=== PATIENT | female | born 1960 | race Caucasian/White ===

== ENCOUNTER 2020-03-03 06:32 | Outpatient (REF) | payer MEDICARE, MEDICAID, SELFPAY ==
[2020-03-03 07:50] LABS: Alanine Aminotransferase 24 U/L (0-31); Albumin Level 4.1 g/dL (3.5-5.0); Alkaline Phosphatase 93 U/L (39-117); Anion Gap 11 (12-20); Aspartate Amino Transferase 14 U/L (5-31); Bilirubin Total 0.4 mg/dL (0.0-1.0); Blood Urea Nitrogen 8 mg/dL (9-16); Calcium 8.8 mg/dL (8.4-10.2); Carbon Dioxide 30 mmol/L (22-29); Chloride 106 mmol/L (96-108); Cholesterol 184 mg/dL; Estimated Glomerular Filt Rate > 60; Glucose Fasting 75 mg/dL (60-99); HDL Cholesterol 66 mg/dL; LDL Cholesterol Calculated 89 mg/dl; Potassium 3.8 mmol/l (3.3-5.1); Sodium 143 mmol/L (135-145); Total Protein 6.3 g/dL (6.5-8.0); Triglycerides 148 mg/dL
[2020-03-03 08:12] LABS: TSH reflex Free T4 1.15 mIU/mL (0.32-4.0); Vitamin D 25-OH Total 53.4 ng/mL (>30)
[2020-03-03 08:23] LABS: Folate 6.3 ng/mL (> or = 4.0); Vitamin B12 643 pg/mL (200-900)
== END 2020-03-03 06:33 | disposition home or self-care (01) ==
LOC: HO.LAB 06:32
PROVIDERS: Visit Provider Internal Medicine
DX: E78.2 Mixed hyperlipidemia (principal); G62.9 Polyneuropathy, unspecified; J44.9 Chronic obstructive pulmonary disease, unspecified; K21.9 Gastro-esophageal reflux disease without esophagitis; E55.9 Vitamin D deficiency, unspecified; E66.3 Overweight
CPT/HCPCS: 80053; 80061; 82306; 82607; 82746; 84443

== ENCOUNTER 2020-05-23 11:28 | Outpatient (REF) | payer MEDICARE, MEDICAID, SELFPAY ==
--- NOTE | 2020-05-23 11:33 | MM_ITS ---
EXAMINATION: MM SCREENING DIGITAL BREAST TOMOSYNTHESIS, BILATERAL CLINICAL INFORMATION: Screening. Asymptomatic. The lifetime risk of breast cancer based on the Tyrer-Cuzick Model is 6%. COMPARISON: Mammography: 05/19/2019, 05/16/2018, 04/30/2017 TECHNIQUE: Digital breast tomosynthesis is performed in both the craniocaudal and mediolateral oblique views along with computer-aided detection (CAD). Synthesized 2D images are generated from the tomosynthesis. FINDINGS: There are scattered areas of fibroglandular density (ACR BI-RADS breast composition Category b). There are no significant masses, abnormal calcifications, or other abnormalities. Parenchymal pattern is similar to prior exams. MM/MM tomosynthesis screening BI IMPRESSION: No mammographic evidence of malignancy. ASSESSMENT: BI-RADS 1: Negative RECOMMENDATION: Routine annual mammography screening. This patient's information was entered into a reminder system with a target due date for their next mammogram.
== END 2020-05-23 11:29 | disposition home or self-care (01) ==
LOC: HO.MAMMO 11:28
PROVIDERS: Visit Provider Internal Medicine
DX: Z12.31 Encounter for screening mammogram for malignant neoplasm of breast (principal)
CPT/HCPCS: 77063; 77067

== ENCOUNTER → 2020-09-29 09:56 | Outpatient (BNVA) | payer MEDICARE, MEDICAID, SELFPAY | PROVIDERS: PCP Internal Medicine; Referring Provider Internal Medicine; Visit Provider Advanced Practice Midwife ==

== ENCOUNTER 2021-05-24 11:22 | Outpatient (REF) | payer MEDICARE, MEDICAID, SELFPAY ==
--- NOTE | ~2021-05-24 | MM_ITS ---
EXAMINATION: MM SCREENING DIGITAL BREAST TOMOSYNTHESIS, BILATERAL CLINICAL INFORMATION: Screening. Asymptomatic. The lifetime risk of breast cancer based on the Tyrer-Cuzick Model is 6%. COMPARISON: Mammography: 05/23/2020, 05/19/2019, 05/16/2018 TECHNIQUE: Digital breast tomosynthesis is performed in both the craniocaudal and mediolateral oblique views along with computer-aided detection (CAD). Synthesized 2D images are generated from the tomosynthesis. FINDINGS: There are scattered areas of fibroglandular density (ACR BI-RADS breast composition Category b). There are no significant masses, abnormal calcifications, or other abnormalities. Parenchymal pattern is similar to prior studies. There is no developing density or architectural abnormality. The axilla and skin contours are unremarkable. No significant changes. MM/MM tomosynthesis screening BI IMPRESSION: No mammographic evidence of malignancy. ASSESSMENT: BI-RADS 1: Negative RECOMMENDATION: Routine annual mammography screening. This patient's information was entered into a reminder system with a target due date for their next mammogram.
== END 2021-05-24 11:23 | disposition home or self-care (01) ==
LOC: HO.MAMMO 11:22
PROVIDERS: Visit Provider Internal Medicine
DX: Z12.31 Encounter for screening mammogram for malignant neoplasm of breast (principal)
CPT/HCPCS: 77063; 77067

== ENCOUNTER 2021-08-25 07:58 | Outpatient (REF) | payer MEDICARE, MEDICAID, SELFPAY ==
--- NOTE | 2021-08-25 08:05 | ECG_ITS ---
Test Reason : CHEST PAIN Blood Pressure : / mmHG Vent. Rate : 074 BPM Atrial Rate : 074 BPM P-R Int : 162 ms QRS Dur : 098 ms QT Int : 388 ms P-R-T Axes : 031 081 045 degrees QTc Int : 430 ms Sinus rhythm with Premature atrial complexes Incomplete right bundle branch block Borderline ECG When compared with ECG of 03-MAR-2019 15:26, Premature atrial complexes are now Present Vent. rate has decreased BY 42 BPM Referred By: Cora Shelley Electronically Signed By:SHYLA RAY
[2021-08-25 08:26] LABS: MANUAL DIFF FLAG NO
[2021-08-25 09:16] LABS: Basophils Absolute Auto 0.1 X10*3/uL (0.0-0.2); Eosinophils Absolute Auto 0.3 X10*3/uL (0.0-0.4); Eosinophils Percent Auto 3.8 % (0-4); Hematocrit 37.8 % (37.0-47.0); Hemoglobin 13.1 g/dl (12.0-16.0); Imm Gran Abs Auto 0.02 X10*3/uL (0.00-0.03); Imm Gran Pct Auto 0.3 % (0.0-0.4); Lymphocytes Absolute Auto 2.2 X10*3/uL (1.2-4.9); Lymphocytes Percent Auto 27.6 % (20-40); Mean Corpuscular HGB Conc 34.7 g/dl (31.0-35.0); Mean Corpuscular Volume 86.7 fL (80.0-98.0); Mean Platelet Volume 11.1 fL (9.4-12.3); Monocytes Absolute Auto 0.6 X10*3/uL (0.1-1.2); Monocytes Percent Auto 7.8 % (2-11); Neutrophils Absolute Auto 4.7 x10*3/uL (2.0-8.3); Neutrophils Percent Auto 59.5 % (45-73); Platelet Count 218 X10*3/uL (160-400); Red Blood Count 4.36 X10*6/uL (4.20-5.50); Red Cell Distribution Width 12.6 % (11.0-16.0); White Blood Count 7.9 X10*3/uL (4.8-10.8)
[2021-08-25 09:49] LABS: Alanine Aminotransferase 15 U/L (0-31); Alkaline Phosphatase 89 U/L (39-117); Anion Gap 9 (12-20); Aspartate Amino Transferase 15 U/L (5-31); Bilirubin Total 0.4 mg/dL (0.0-1.0); Blood Urea Nitrogen 21 mg/dL (9-16); Calcium 9.2 mg/dL (8.4-10.2); Carbon Dioxide 29 mmol/L (22-29); Chloride 105 mmol/L (96-108); Cholesterol 246 mg/dL; Estimated Glomerular Filt Rate > 60; Glucose Fasting 95 mg/dL (60-99); HDL Cholesterol 54 mg/dL; LDL Cholesterol Calculated 163 mg/dl; Potassium 4.4 mmol/L (3.3-5.1); Sodium 139 mmol/L (135-145); Total Protein 6.6 g/dL (6.5-8.0); Triglycerides 148 mg/dL
[2021-08-25 10:11] LABS: TSH reflex Free T4 1.37 uIU/mL (0.32-4.0); Vitamin D 25-OH Total 40.2 ng/mL (>30)
[2021-08-25 10:20] LABS: Folate 5.4 ng/mL (> or = 4.0); Vitamin B12 216 pg/mL (200-900)
== END 2021-08-25 07:59 | disposition home or self-care (01) ==
LOC: HO.LAB 07:58
PROVIDERS: PCP Internal Medicine; Visit Provider Nurse Practitioner Family
DX: R07.89 Other chest pain (principal); I10 Essential (primary) hypertension; E78.2 Mixed hyperlipidemia
CPT/HCPCS: 36415; 80053; 80061; 82306; 82607; 82746; 84443; 85025; 93005

== ENCOUNTER → 2021-09-05 07:27 | Outpatient (REF) | payer MEDICARE, MEDICAID, SELFPAY ==
--- NOTE | 2021-09-05 07:29 | HM_ITS ---
Conclusion: 1. Patient was monitored for total period of 6 days and 9 hours 2. Baseline rhythm is normal sinus rhythm with frequent sinus tachycardia greater than 33% of the time. 3. No sinus pauses or bradycardia noted 4. Total of Forty-six thousand six hundred forty-four PACs accounting for 5.44% of total beats accounting for frequent PACs 5. One hundred fifteen beat run of wide complex tachycardia consistent with nonsustained VT at about 150-160 beats per minute 6. 8 short supraventricular episodes longest lasting 4 beats 7. No patient reported events MTDD
== END ==
LOC: HO.CARD 07:27
PROVIDERS: Visit Provider Nurse Practitioner Family
DX: R07.89 Other chest pain (principal); I45.10 Unspecified right bundle-branch block
CPT/HCPCS: 93242

== ENCOUNTER 2021-09-18 09:51 | Emergency (ER) | payer MEDICARE, MEDICAID, SELFPAY ==
[2021-09-18 09:57] VITALS: BP 126/86; BP 97/77; PULSE 113; PULSE 115; RESP 22; TEMP 36.8; O2SAT 100; O2SAT 97; BMI 25.3
--- NOTE | 2021-09-18 10:00 | ECG_ITS ---
Test Reason : SVT Blood Pressure : / mmHG Vent. Rate : 109 BPM Atrial Rate : 109 BPM P-R Int : 168 ms QRS Dur : 100 ms QT Int : 340 ms P-R-T Axes : 048 097 032 degrees QTc Int : 457 ms Sinus tachycardia Possible Left atrial enlargement Rightward axis Low voltage QRS Incomplete right bundle branch block Borderline ECG When compared with ECG of 25-AUG-2021 08:07, Premature atrial complexes are no longer Present Referred By: Feliz Merino Electronically Signed By:Willy Melo
[2021-09-18] MEDS: 0.9 % Sodium Chloride 1,000 ML 999 ML IV ×2 (10:22)
[2021-09-18 10:24] LABS: MANUAL DIFF FLAG NO
[2021-09-18 10:28] LABS: Basophils Absolute Auto 0.1 X10*3/uL (0.0-0.2); Basophils Percent Auto 0.7 % (0-2); Eosinophils Absolute Auto 0.2 X10*3/uL (0.0-0.4); Eosinophils Percent Auto 2.7 % (0-4); Hematocrit 37.9 % (37.0-47.0); Imm Gran Abs Auto 0.02 X10*3/uL (0.00-0.03); Imm Gran Pct Auto 0.3 % (0.0-0.4); Lymphocytes Absolute Auto 1.7 X10*3/uL (1.2-4.9); Lymphocytes Percent Auto 22.3 % (20-40); Mean Corpuscular HGB Conc 34.3 g/dl (31.0-35.0); Mean Corpuscular Hemoglobin 30.2 pg (27.0-33.0); Mean Corpuscular Volume 87.9 fL (80.0-98.0); Mean Platelet Volume 10.8 fL (9.4-12.3); Monocytes Absolute Auto 0.4 X10*3/uL (0.1-1.2); Monocytes Percent Auto 5.9 % (2-11); Neutrophils Absolute Auto 5.1 x10*3/uL (2.0-8.3); Neutrophils Percent Auto 68.1 % (45-73); Platelet Count 219 X10*3/uL (160-400); Red Blood Count 4.31 X10*6/uL (4.20-5.50); Red Cell Distribution Width 12.4 % (11.0-16.0); White Blood Count 7.5 X10*3/uL (4.8-10.8)
[2021-09-18 10:36] LABS: Prothrombin Time 10.9 SEC (9.9-13.0)
[2021-09-18 10:39] LABS: Partial Thromboplastin Time 34.5 SEC (24.1-38.0)
[2021-09-18 10:47] VITALS: BP 107/73; PULSE 101; RESP 20; O2SAT 98
[2021-09-18 10:48] LABS: Troponin-I High Sensitivity < 3.5 ng/L (<3.5-17.0)
--- NOTE | 2021-09-18 10:49 | ED_ITS ---
HPI - General Adult General Chief complaint: Arrhythmia/Palpitations Stated complaint: HR 180,ADENOSINE GIVEN 115 NOW Time Seen by Provider: 09/18/21 11:03 Source: patient Mode of arrival: ambulatory Limitations: no limitations History of Present Illness HPI narrative: 61-year-old female with past medical history of SVT, COPD, and GERD presents to the ED for heart palpitations. Patient states while she was at home heart started beating fast and she called the ambulance and EMS states she was found to be in SVT. Number states patient was given adenosine and her SVT broke. Patient states her primary care provider is aware of history of SVT and was seen at cardiology lab and is waiting for results from evaluation. Patient has referral to see a bible reader. Patient presently is asymptomatic. Patient denies any chest pain, shortness of breath, abdominal pain, palpitations, coughing up blood, weakness, dizziness, fever, chills, leg swelling, or calf pain. Related Data Home Medications Medication Instructions Recorded Confirmed albuterol sulfate 90 mcg/actuation 2 puff PO QID PRN 03/09/20 09/01/21 aerosol inhaler ascorbic acid (vitamin C) 500 mg 500 mg PO DAILY 03/09/20 09/01/21 tablet fluticasone propionate 110 1 puff PO BID 03/09/20 09/01/21 mcg/actuation HFA aerosol inhaler dextroamphetamine-amphetamine 20 2 tab PO DAILY tab 08/18/21 09/01/21 mg tablet Previous Rx's Medication Instructions Recorded epinephrine 0.3 mg/0.3 mL 0.3 mg (0.3 mL) IM Q30M PRN #2 ea 03/09/20 injection, auto-injector (EpiPen 2-Nico) ipratropium 0.5 mg-albuterol 3 mg 3 ml INHALATION Q6-8H PRN 30 Days 03/09/20 (2.5 mg base)/3 mL nebulization #180 ml soln nebulizers #1 ea 03/09/20 albuterol sulfate 2.5 mg (3 mL) INHALATION QID PRN 03/17/20 30 Days #360 ml cyanocobalamin (vitamin B-12) 1,000 mcg PO DAILY #90 tab 04/30/20 1,000 mcg tablet (Vitamin B-12) omeprazole 20 mg capsule,delayed 20 mg PO DAILY 90 Days #90 cap 07/27/20 release quetiapine 400 mg tablet 800 mg PO DAILY #60 tab 12/01/20 zolpidem 10 mg tablet 10 mg PO BEDTIME PRN 30 Days #30 12/01/20 tab cholecalciferol (vitamin D3) 125 125 mcg PO DAILY #90 cap 03/25/21 mcg (5,000 unit) capsule atorvastatin 10 mg tablet 10 mg PO DAILY #90 tab 07/21/21 acetaminophen 500 mg tablet (Pain 500 mg PO BEDTIME PRN #30 tab 08/02/21 Relief Extra Strength) loratadine 10 mg tablet 10 mg PO DAILY #90 tab 08/02/21 blood pressure monitor #1 ea 08/18/21 lisinopril 2.5 mg tablet 2.5 mg PO DAILY #30 tab 09/01/21 Allergies Allergy/AdvReac Type Severity Reaction Status Date / Time haloperidol [From HALDOL] AdvReac Severe SEIZURES Verified 09/01/21 08:46 Review of Systems Review of Systems: Resolved SVT. Heart palpitation resolved. Yes all other systems are reviewed and are negative [facility] Past Medical History Medical History Allergic rhinitis Attention deficit hyperactivity disorder (ADHD) Chronic obstructive pulmonary disease Depression Elevated blood pressure reading GERD without esophagitis Hirsutism Impacted cerumen of both ears Insomnia Mixed hyperlipidemia Neuropathy Overweight (BMI 25.0-29.9) Primary osteoarthritis of right knee Vitamin D deficiency Surgical History H/O right knee surgery H/O rotator cuff surgery History of colonoscopy History of hand surgery Total knee replacement status Family History Family History Father Medical history unknown Mother Medical history unknown Social History Social History Housing: House Alcohol intake: former Patient Tobacco Use Status: Former Tobacco user e-Cigarette/Vaping Use: Currently Using Advance Directives: Yes Advance Directives Information Provided: No Advance Directives on File: No service: No Current occupational status: disabled Gender identity: Female Cognitive needs: Yes Hearing needs: No Vision needs: No Physical Exam ED Vital Signs: Vital Signs - 24 hr 09/18/21 09:57 09/18/21 10:47 09/18/21 11:27 Temperature 98.2 F Pulse Rate 115 H 101 H 90 Respiratory Rate 22 H 20 20 Blood Pressure 97/77 107/73 125/84 Pulse Oximetry 97 98 98 BMI result Body Mass Index 25.3 Const General: cooperative, healthy appearing, comfortable, no acute distress, well developed, alert, awake and Physically active Orientation/consciousness: oriented to time and patient [facility]: Yes normal to inspection, Yes No palpable skull fracture present, Yes normocephalic, Yes atraumatic and No abrasion Eyes General: appearance normal, both eyes and all related structures Neck Neck: Yes normal visual inspection, Yes full ROM, Yes no lymphadenopathy, Yes no meningeal signs, Yes trachea midline, Yes supple, No anterior neck swelling and No tender Chest Chest palpation & inspection: normal inspection of the chest and normal palpation of entire chest wall Resp Effort & Inspection: normal respiratory effort and able to speak in complete sentences Auscultation: clear to auscultation bilaterally Cardio Jugular venous distension: no JVD Heart sounds: S1 normal heart sound present and S2 normal heart sound present GI Inspection: Yes normal to inspection and No abdominal wall ecchymosis Palpation (GI): Soft to palpation, not firm, nontender, no guarding and not rigid General: No CVA tenderness and Yes no CVA tenderness Back/Spine/Pelvis Back: no CVA tenderness, No CVA tenderness and No back tenderness Skin General skin exam: no rashes or lesions noted and elasticity normal Neuro General: oriented to time, patient oriented x3, gait normal, no meningeal signs and CN's II-XI intact bilaterally Cranial nerves: Yes CN's II-XII intact bilaterally Extrem Other: Lower extremities negative for swelling, pitting edema, or calf tenderness. General: Yes normal to inspection and Yes full ROM Psych Appearance: grossly normal, well kempt and not disheveled Course Course Course Narrative: EKG labs and fluids ordered. Heart rate presently on October 01 Reevaluation(s) Reevaluation #1: EKG negative STEMI. First troponin negative. Electrolytes including magnesium normal. Patient well-appearing in talking with medical staff and spouse. Patient would like to be discharged and does not want to wait for 2nd troponin. Patient does not want further observation. Patient states he has follow-up with a bible reader and primary care provider. Thyroid level still pending. Patient understand risk of , disability, and worsening life prospects if she has a heart attack/recurring SVTt and leaves the ER before results. Patient agreeable to sign against medical advice Time: 12:19 Medical Decision Making MDM Narrative Medical decision making narrative: SVT Lab Data Result diagrams: 09/18/21 10:20 09/18/21 10:20 Labs: Lab Results 09/18/21 09/18/21 09/18/21 Range/Units 10:20 10:20 10:20 WBC 7.5 (4.8-10.8) X10*3/uL RBC 4.31 (4.20-5.50) X10*6/uL Hgb 13.0 (12.0-16.0) g/dl Hct 37.9 (37.0-47.0) % MCV 87.9 (80.0-98.0) fL MCH 30.2 (27.0-33.0) pg MCHC 34.3 (31.0-35.0) g/dl RDW 12.4 (11.0-16.0) % Plt Count 219 (160-400) X10*3/uL MPV 10.8 (9.4-12.3) fL Immature Gran % (Auto) 0.3 (0.0-0.4) % Neut % (Auto) 68.1 (45-73) % Lymph % (Auto) 22.3 (20-40) % [place] % (Auto) 5.9 (2-11) % Eos % (Auto) 2.7 (0-4) % Baso % (Auto) 0.7 (0-2) % Lymph # (Auto) 1.7 (1.2-4.9) X10*3/uL [place] # (Auto) 0.4 (0.1-1.2) X10*3/uL Eos # (Auto) 0.2 (0.0-0.4) X10*3/uL Baso # (Auto) 0.1 (0.0-0.2) X10*3/uL Abs Immat Gran (auto) 0.02 (0.00-0.03) X10*3/uL Absolute Neuts (auto) 5.1 (2.0-8.3) x10*3/uL Absolute Nucleated RBC 0.000 (0.0-0.012) X10*3/uL Nucleated RBC % (auto) 0.0 (0.0-0.2) /100WBC PT 10.9 (9.9-13.0) SEC INR 1.0 (0.9-1.1) APTT 34.5 (24.1-38.0) SEC Sodium 139 (135-145) mmol/L Potassium 4.3 (3.3-5.1) mmol/L Chloride 108 (96-108) mmol/L Carbon Dioxide 22 (22-29) mmol/L Anion Gap 13 (12-20) BUN 14 (9-16) mg/dL Creatinine 0.86 (0.5-1.4) mg/dL Estim Creat Clear Calc 65.9 Estimated GFR > 60 Random Glucose 111 (60-115) mg/dL Calcium 9.1 (8.4-10.2) mg/dL Magnesium 2.2 (1.6-2.6) mg/dL Total Bilirubin 0.3 (0.0-1.0) mg/dL AST 25 D (5-31) U/L ALT 20 (0-31) U/L Alkaline Phosphatase 82 (39-117) U/L Troponin I High Sens (<3.5-17.0) ng/L Total Protein 6.3 L (6.5-8.0) g/dL Albumin 3.9 (3.5-5.0) g/dL TSH 0.54 (0.32-4.0) uIU/mL Thyroxine (T4) 6.8 (4.5-12.0) ug/dL 09/18/21 Range/Units 10:20 WBC (4.8-10.8) X10*3/uL RBC (4.20-5.50) X10*6/uL Hgb (12.0-16.0) g/dl Hct (37.0-47.0) % MCV (80.0-98.0) fL MCH (27.0-33.0) pg MCHC (31.0-35.0) g/dl RDW (11.0-16.0) % Plt Count (160-400) X10*3/uL MPV (9.4-12.3) fL Immature Gran % (Auto) (0.0-0.4) % Neut % (Auto) (45-73) % Lymph % (Auto) (20-40) % [place] % (Auto) (2-11) % Eos % (Auto) (0-4) % Baso % (Auto) (0-2) % Lymph # (Auto) (1.2-4.9) X10*3/uL [place] # (Auto) (0.1-1.2) X10*3/uL Eos # (Auto) (0.0-0.4) X10*3/uL Baso # (Auto) (0.0-0.2) X10*3/uL Abs Immat Gran (auto) (0.00-0.03) X10*3/uL Absolute Neuts (auto) (2.0-8.3) x10*3/uL Absolute Nucleated RBC (0.0-0.012) X10*3/uL Nucleated RBC % (auto) (0.0-0.2) /100WBC PT (9.9-13.0) SEC INR (0.9-1.1) APTT (24.1-38.0) SEC Sodium (135-145) mmol/L Potassium (3.3-5.1) mmol/L Chloride (96-108) mmol/L Carbon Dioxide (22-29) mmol/L Anion Gap (12-20) BUN (9-16) mg/dL Creatinine (0.5-1.4) mg/dL Estim Creat Clear Calc Estimated GFR Random Glucose (60-115) mg/dL Calcium (8.4-10.2) mg/dL Magnesium (1.6-2.6) mg/dL Total Bilirubin (0.0-1.0) mg/dL AST (5-31) U/L ALT (0-31) U/L Alkaline Phosphatase (39-117) U/L Troponin I High Sens < 3.5 (<3.5-17.0) ng/L Total Protein (6.5-8.0) g/dL Albumin (3.5-5.0) g/dL TSH (0.32-4.0) uIU/mL Thyroxine (T4) (4.5-12.0) ug/dL ECG Data Interpretation: sinus tachycardia. Ventricular rate 109. OH interval 168. QRS 100 per QTC 457. Negative STEMI Discharge Plan Discharge Clinical Impression: SVT (supraventricular tachycardia) Patient Disposition: Left Against Medical Advice Instructions: Supraventricular Tachycardia (ED) Additional Instructions: you are leaving against medical advice. Return to the ED immediately for any chest pain, shortness of breath, heart palpitations, dizziness, loss of consciousness, coughing up blood, leg swelling, calf pain, or any other concerning symptoms. Please follow-up with your primary care provider and bible reader. Prescriptions: No Action albuterol sulfate 2.5 mg /3 mL (0.083 %) solution for nebulization 2.5 mg inhalation QID PRN (Reason: shortness of breath or wheezing) 30 Days Qty: 360 0RF cyanocobalamin (vitamin B-12) [Vitamin B-12] 1,000 mcg tablet 1,000 mcg PO DAILY Qty: 90 0RF omeprazole 20 mg capsule,delayed release(DR/EC) 20 mg PO DAILY 90 Days Qty: 90 1RF zolpidem 10 mg tablet 10 mg PO BEDTIME PRN (Reason: insomnia) 30 Days Qty: 30 0RF quetiapine 400 mg tablet 800 mg PO DAILY Qty: 60 0RF cholecalciferol (vitamin D3) 125 mcg (5,000 unit) capsule 125 mcg PO DAILY Qty: 90 2RF atorvastatin 10 mg tablet 10 mg PO DAILY Qty: 90 0RF acetaminophen [Pain Relief Extra Strength] 500 mg tablet 500 mg PO BEDTIME PRN (Reason: for pain) Qty: 30 0RF loratadine 10 mg tablet 10 mg PO DAILY Qty: 90 0RF ascorbic acid (vitamin C) 500 mg tablet 500 mg PO DAILY 0RF Flovent HFA 110 mcg/actuation HFA aerosol inhaler 1 puff PO BID 0RF albuterol sulfate 90 mcg/actuation HFA aerosol inhaler 2 puff PO QID PRN0RF ipratropium-albuterol 0.5 mg-3 mg(2.5 mg base)/3 mL solution for nebulization 3 ml inhalation Q6-8H PRN (Reason: shortness of breath or wheezing) 30 Days Qty: 180 3RF epinephrine [EpiPen 2-Nico] 0.3 mg/0.3 mL auto-injector 0.3 mg IM Q30M PRN (Reason: anaphylaxis) Qty: 2 0RF Rx Instructions: do not exceed 12 doses per 24 hrs (DME) nebulizers Misc See Rx Instructions .ROUTE .MEDSUPPLY Qty: 1 0RF Rx Instructions: As directed dextroamphetamine-amphetamine 20 mg tablet 2 tab PO DAILY 0RF (DME) blood pressure monitor Kit See Rx Instructions .Route Qty: 1 0RF Rx Instructions: As directed lisinopril 2.5 mg tablet 2.5 mg PO DAILY Qty: 30 2RF Referrals: Maico Pierce MD [Primary Care Provider] - ( SVT) Stand Alone Forms: Against Medical Advice Interventions: ED Discharge Assessment Last Done: 09/18/21 12:32 Discharge Date/Time: 09/18/21 12:32 Print Language: Azerbaijani
[2021-09-18 10:50] LABS: Alanine Aminotransferase 20 U/L (0-31); Albumin Level 3.9 g/dL (3.5-5.0); Alkaline Phosphatase 82 U/L (39-117); Anion Gap 13 (12-20); Aspartate Amino Transferase 25 U/L (5-31); Bilirubin Total 0.3 mg/dL (0.0-1.0); Blood Urea Nitrogen 14 mg/dL (9-16); Calcium 9.1 mg/dL (8.4-10.2); Carbon Dioxide 22 mmol/L (22-29); Chloride 108 mmol/L (96-108); Creatinine Clr Calc Pharmacy 65.9; Estimated Glomerular Filt Rate > 60; Glucose Random 111 mg/dL (60-115); Magnesium 2.2 mg/dL (1.6-2.6); Potassium 4.3 mmol/L (3.3-5.1); Sodium 139 mmol/L (135-145); Total Protein 6.3 g/dL (6.5-8.0)
[2021-09-18 11:27] VITALS: BP 125/84; PULSE 90; RESP 20; O2SAT 98
[2021-09-18 12:25] LABS: T4 Thyroxine 6.8 ug/dL (4.5-12.0); Thyroid Stimulating Hormone 0.54 uIU/mL (0.32-4.0)
== END 2021-09-18 12:32 | disposition left against medical advice (07) ==
PROVIDERS: Physician Assistant; Emergency Provider Emergency Medicine; PCP Internal Medicine
DX: I47.1 Supraventricular tachycardia (principal); I10 Essential (primary) hypertension; E78.5 Hyperlipidemia, unspecified; Z79.899 Other long term (current) drug therapy; Z79.02 Long term (current) use of antithrombotics/antiplatelets
CPT/HCPCS: 36415; 80053; 83735; 84436; 84443; 84484; 85025; 85610; 85730; 93005; 96360; 99284

== ENCOUNTER → 2021-10-06 09:02 | Outpatient (BNVA) | payer MEDICARE, MEDICAID, SELFPAY | PROVIDERS: PCP Internal Medicine; Visit Provider Advanced Practice Midwife | DX: Z01.419 Encounter for gynecological examination (general) (routine) without abnormal findings (principal); L98.9 Disorder of the skin and subcutaneous tissue, unspecified; Z78.0 Asymptomatic menopausal state | CPT/HCPCS: 99212 ==

== ENCOUNTER 2021-10-13 08:11 | Outpatient (REF) | payer MEDICARE, MEDICAID, SELFPAY ==
--- NOTE | ~2021-10-13 | MM_ITS ---
EXAMINATION: BONE DENSITOMETRY CLINICAL INDICATION: Menopause. COMPARISON: None (current study represents initial baseline exam). TECHNIQUE: Using a Get[employer] DXA System (software version: 13.1) manufactured by [employer], dual-energy x-ray absorptiometry was performed of the lumbar spine and left hip. The images are of good technical quality. Summary results are attached. FINDINGS: AP SPINE L1-L2 (excluding L3 and L4): The data of L1-L4 has been changed to exclude the L3 and L4 vertebral bodies, because degenerative changes at these levels may cause overestimation of lumbar spine density. BMD 1.110 g/cm2, Z-score 0.5, T-score -0.5, normal. LEFT FEMUR, NECK: BMD 0.774 g/cm2, Z-score -0.8, T-score -1.9, osteopenia. LEFT FEMUR, TOTAL: BMD 0.754 g/cm2, Z-score -1.2, T-score -2.0, osteopenia. IDENTIFIED RISK FACTORS: Menopause, low calcium intake. HISTORY OF FRACTURE: None listed. MEDICATIONS: Vitamin D. MM/XR DEXA axial skeleton IMPRESSION: 1. DIAGNOSIS: Osteopenia based on the lowest T-score value of -2.0 in the total femur applying World Health Organization criteria. 2. 10-YEAR FRACTURE RISK PREDICTION, FRAX: Major osteoporotic fracture (clinical spine, forearm, hip or shoulder) 9.8%. Hip fracture 1.2%. 3. Treatment Recommendations: NOF guidelines recommend consideration for treatment in postmenopausal women and men age 50 and older presenting with the following: -A hip or vertebral (clinical or morphometric) fracture. -T-score less than or equal to -2.5 at the femoral neck or spine after appropriate evaluation to exclude secondary causes. -Low bone mass at the hip or spine and a 10-year fracture probability by FRAX of greater than or equal to 3% for hip fracture or greater than or equal to 20% for major osteoporotic fracture based on the [place] adapted WHO algorithm. 4. Other Recommendations: All treatment decisions require clinical judgment and consideration of individual patient factors, including patient preferences, comorbidities, previous drug use, risk factors not captured in the FRAX model (e.g. frailty, falls, vitamin D deficiency, increased bone turnover, interval significant decline in bone density) and possible under or overestimation of fracture risk by FRAX. Additional medical evaluation for secondary cause of low bone mineral density may be appropriate. FUTURE SCAN RECOMMENDATION: People with diagnosed cases of osteoporosis or at high risk for fracture should have regular bone mineral density tests. For patients eligible for Medicare, routine testing is allowed once every 2 years. The testing frequency can be increased to one year for patients who have rapidly progressing disease, those who are receiving or discontinuing medical therapy to restore bone mass, or have additional risk factors.
== END 2021-10-13 08:12 | disposition home or self-care (01) ==
LOC: HO.MAMMO 08:11
PROVIDERS: PCP Internal Medicine; Visit Provider Nurse Practitioner Family
DX: Z13.820 Encounter for screening for osteoporosis (principal); Z78.0 Asymptomatic menopausal state
CPT/HCPCS: 77080

== ENCOUNTER → 2021-10-25 08:53 | Outpatient (BNVA) | payer MEDICARE, MEDICAID, SELFPAY | PROVIDERS: PCP Internal Medicine; Referring Provider Nurse Practitioner Family; Visit Provider Internal Medicine Cardiovascular Disease | DX: I47.1 Supraventricular tachycardia (principal); I47.2 Ventricular tachycardia; Z79.899 Other long term (current) drug therapy | CPT/HCPCS: 99202 ==

== ENCOUNTER → 2021-12-07 08:26 | Outpatient (REF) | payer MEDICARE, MEDICAID, SELFPAY ==
--- NOTE | 2021-12-07 08:29 | CA_ITS ---
Transthoracic Echocardiogram Patient (Last, First, Middle): Jonathan Sterling, Gender: Female Date of : 1960 Age: 61 Procedure Date: 12/07/2021 Procedure Type: Transthoracic Echocardiogram Location: OP Height: 170.18 cm Weight: 72.58 kg BSA: 1.84 m2 Heart Rate: 79 bpm BP: 122 / 90 mmHg [employer] Supervisor: JOHN Referring MD: Khang Guevara MD Symptoms: I47.2 - Ventricular tachycardia Study Quality: Adequate w contrast ECG Rhythm: Sinus Conclusions: - The left ventricular systolic function is normal. The calculated ejection fraction is 69% by biplane method. - There is mild calcification of the aortic valve. - No obvious valvular pathology seen on this study. Findings Procedure Information Contrast agent, definity, is being given per protocol without apparent complications. Left Ventricle Normal left ventricular cavity size. There is normal left ventricular wall thickness. The left ventricular systolic function is normal. The calculated ejection fraction is 69% by biplane method. There is no evidence of regional wall motion abnormalities. E/E prime ratio is between 8 and 15 consistent with indeterminate filling pressures. Evidence suggests grade I (mild) diastolic dysfunction. Right Ventricle Normal right ventricular cavity size and systolic function. Atria Both atria are normal in size. Aortic Valve There is a normal trileaflet aortic valve. There is mild calcification of the aortic valve. There is no aortic valve stenosis. There is trace (trivial) aortic valve regurgitation. Mitral Valve The mitral valve appears normal. There is no mitral valve regurgitation. There is no mitral valve stenosis. Pulmonic Valve The pulmonic valve is likely normal. Tricuspid Valve Normal tricuspid valve structure. There is trace tricuspid valve regurgitation. The pulmonary artery systolic pressure is normal. Great Vessels The asc aorta is normal in size. Venous The inferior vena cava is normal in size and collapses greater than 50% with inspiration. Pericardium/Pleural There is a trivial pericardial effusion. Prior Study Comparison No prior study available for comparison. Recommendations, Care & Conclusions No obvious valvular pathology seen on this study. Measurements 2D Linear Measurements IVSd: 0.93 0.6-0.9/0.6-1.0 cm LVIDd: 4.44 3.9-5.3/4.2-5.9 cm LVIDd Index: 2.41 2.4-3.2/2.2-3.1 cm/m2 LVIDs: 2.43 2.0-3.6 cm LVPWd: 0.61 0.7-1.1 cm LA Diam: 3.50 2.7-3.8/3.0-4.0 cm LAIDs Index: 1.90 1.5-2.3 cm/m2 LV Mass: 131.15 67-162/88-224 g LV Mass Index: 71.28 43-95/49-115 g/m2 LVOT Diam: 2.10 3.0+(-)1.3 cm 2D Systolic Function EF 4C: 72.00 >55% EF 2C: 66.90 >55% EF BiP: 69.30 >55% Mitral Valve MV Pk E: 0.63 MV PK A: 1.10 MV Decel Time: 264.00 E/A: 0.60 E'Lateral: 4.79 E'Medial: 5.00 E/E' Med: 12.60 E/E' Lat: 13.20 PHT: 77.00 MVA PHT: 2.86 Decel Lucas: 2.39 Aortic Valve AoV Pk Jesus: 1.80 AoV Mn Jesus: 1.21 AoV VTI: 0.32 AoV Pk Grad: 13.00 Aov Mn Grad: 7.00 HUMPHREY Cont.VTI: 3.15 LVOT LVOT Pk Jesus: 1.49 LVOT Mn Jesus: 1.12 LVOT VTI: 0.29 LVOT Pk Grad: 9.00 LVOT Mn Grad: 6.00 LVOT Diam: 2.10 LVOT Area: 3.46 Diastolic Function MV Pk E: 0.63 MV Pk A: 1.10 E/A: 0.60 E'Medial: 5.00 E/E' Med: 12.60 E' Laterial: 4.79 E/E' Lat: 13.20 Right Ventricle TAPSE (mm): 19.80 TVS' Jesus: 12.90 Tricuspid Valve RA Press: 3.00 Great Vessels Aorta Sinus of Valsalva: 3.70 2.0-3.5 cm Ao Asc: 3.60 2.1-3.4 cm Pulmonary Veins Pulm Vein S/D 1.60 Pulmonary Valve PV Pk Jesus: 0.93 Peak PV Grad: 3.00 Updated in Other Vendor System with Status of Final Harish Mendenhall MD electronically signed on 12/09/2021 11:35:07 AM with status of Final
--- NOTE | 2021-12-07 08:29 | CA_ITS ---
Acquisition Time: 2021-12-07 09:25:53 Total Exercise Time: 00:05:00 Test Indications: SVT Medications: SEE H Protocol: SKYE Max HR: 150 BPM 94% of Pred: 158 BPM Max BP: 198/090 mmHG Max Work Load: 7.0 METS Exercise stress test with exercise 5 min of Skye protocol,achieving 94% MPHR. 7 METs, with moderate to severe shortness of breath, 6-7/10 anterior chest tightness, with isolated PACs and PVCs, with hypertensive response to exercise with max BP 198/90, without EKG changes meeting criteria for ischemia. In recovery she used her Albuteral inhaler. She had gradual improvement and resolution of symptoms. Will order an exercise nuclear stress test for further evaluation. Test reviewed with Dr Mendenhall Referred By: Khang Guevara Overread By: SONY ZHANG
== END ==
LOC: HO.CARD 08:26
PROVIDERS: Visit Provider Internal Medicine Cardiovascular Disease
DX: I47.2 Ventricular tachycardia (principal)
CPT/HCPCS: 93017; 93306; Q9957

== ENCOUNTER → 2021-12-22 08:23 | Outpatient (REF) | payer MEDICARE, MEDICAID, SELFPAY ==
--- NOTE | ~2021-12-22 | NM_ITS ---
EXERCISE MYOCARDIAL PERFUSION STUDY INDICATION: Abnormal stress test TECHNIQUE: The patient was brought in for an exercise perfusion study on 12/22/2021. Patient performed exercise as per Tevin protocol and was injected 25 mCi of sestamibi once target heart rate was achieved. Images were obtained using the SPECT gamma camera interlaced with the gating device. Images were obtained in supine position. Resting perfusion study was performed on 12/25/2021. Patient was administered 25 mCi of sestamibi intravenously at rest. Images were then obtained in supine position. Total DLP 146mGy-cm. Images were processed with the software and compared side to side in short axis, horizontal long axis and vertical long axis views. FINDINGS: Raw images were reviewed. The stress perfusion study showed no significant perfusion abnormality. Both uncorrected as well as CT attenuation corrected images were reviewed.. The gated study shows normal LV systolic function with calculated LVEF of 69%. LV cavity is normal in size. The gated study shows normal wall thickening and contraction of segments. Resting study shows no significant perfusion abnormality. Gating at rest reveals normal wall motion with ejection fraction at 73%. The findings are consistent with no reversible or fixed perfusion abnormality. WA/WA cardiolite stress test IMPRESSION: 1. Myocardial perfusion imaging study shows normal myocardial perfusion. 2. Gated LVEF is 69% during stress and 73% during rest. 3. Transient ischemic dilatation not present. EKG component of the test reported separately.
--- NOTE | 2021-12-22 08:26 | CA_ITS ---
Acquisition Time: 2021-12-22 08:45:17 Total Exercise Time: 00:05:01 Test Indications: Abnormal Treadmill Test Medications: SEE H Protocol: SKYE Max HR: 139 BPM 87% of Pred: 158 BPM Max BP: 178/092 mmHG Max Work Load: 7.0 METS Exercise stres test with exercise 5 min 1 sec of Skye protocol, with report of moderate sob and 4/10 anterior chest tightness, with isolated PACs, with normotensive response to exercise, without EKG changes meeting criteria for ischemia. In recovery her sob and chest tightness resolved. Nuclear images pending. Test reviewed with Dr Mendenhall Referred By: Kia Hammond Overread By: KIA HAMMOND
== END ==
LOC: HO.CARD 08:23
PROVIDERS: Visit Provider Nurse Practitioner Family
DX: I47.1 Supraventricular tachycardia (principal); I47.2 Ventricular tachycardia; R94.39 Abnormal result of other cardiovascular function study
CPT/HCPCS: 78452; 93017; A9500

== ENCOUNTER → 2021-12-27 12:43 | Outpatient (BNVA) | payer MEDICARE, MEDICAID, SELFPAY | PROVIDERS: PCP Internal Medicine; Referring Provider Internal Medicine; Visit Provider Internal Medicine Cardiovascular Disease | DX: I47.1 Supraventricular tachycardia (principal) | CPT/HCPCS: 99212 ==

== ENCOUNTER → 2022-03-07 08:49 | Outpatient (BNVA) | payer MEDICARE, MEDICAID, SELFPAY | PROVIDERS: PCP Internal Medicine; Referring Provider Internal Medicine; Visit Provider Internal Medicine Cardiovascular Disease | DX: I47.1 Supraventricular tachycardia (principal) | CPT/HCPCS: 99212 ==

== ENCOUNTER → 2022-04-03 14:14 | Outpatient (BNVA) | payer MEDICARE, MEDICAID, SELFPAY | PROVIDERS: PCP Internal Medicine; Visit Provider Nurse Practitioner Family | DX: I47.1 Supraventricular tachycardia (principal); I49.1 Atrial premature depolarization; I10 Essential (primary) hypertension; R07.89 Other chest pain; Z98.890 Other specified postprocedural states | CPT/HCPCS: 93005; 99212 ==

== ENCOUNTER → 2022-04-24 13:07 | Outpatient (REF) | payer MEDICARE, MEDICAID, SELFPAY ==
--- NOTE | 2022-04-24 13:10 | HM_ITS ---
Conclusion: 1. Patient was monitored for total period of 3 days 2. Baseline was normal sinus rhythm with average heart of 97 beats per minute 3. No significant pauses or bradycardia noted 4. Total of 13,853 PVCs accounting for 6.8% of total beats account for frequent PVCs 5. Patient reported 1 event correlated with sinus tachycardia MTDD
--- NOTE | 2022-04-24 13:10 | CA_ITS ---
Transthoracic Echocardiogram Patient (Last, First, Middle): Jonathan Sterling, Gender: Female Date of : 1960 Age: 61 Procedure Date: 04/24/2022 Procedure Type: Transthoracic Echocardiogram Location: OP Height: 170.18 cm Weight: 70.31 kg BSA: 1.81 m2 Heart Rate: bpm BP: 130 / 98 mmHg Compensator: TO Referring MD: Kia Hammond COAT JOINER LOCKSTITCH-Celia Advertising Specialist: Khnag Guevara MD Symptoms: R06.02 - Shortness of breath Study Quality: Fair/Contrast ECG Rhythm: Sinus Conclusions: - 1. Normal LV systolic function with LVEF of 60 65% 2. Small pericardial effusion Findings Procedure Information Contrast agent, definity, is being given per protocol without apparent complications. Left Ventricle Normal left ventricular size and systolic function. There is mildly increased left ventricular wall thickness. The visually estimated ejection fraction is between 60-65%. Pericardium/Pleural There is a small circumferential pericardial effusion. Prior Study Comparison No significant change compared to prior study dated: 12/07/2021. Measurements 2D Linear Measurements IVSd: 1.18 0.6-0.9/0.6-1.0 cm LVIDd: 3.49 3.9-5.3/4.2-5.9 cm LVIDd Index: 1.93 2.4-3.2/2.2-3.1 cm/m2 LVIDs: 2.07 2.0-3.6 cm LVPWd: 1.18 0.7-1.1 cm LA Diam: 3.20 2.7-3.8/3.0-4.0 cm LAIDs Index: 1.77 1.5-2.3 cm/m2 LV Mass: 164.00 67-162/88-224 g LV Mass Index: 90.61 43-95/49-115 g/m2 LVOT Diam: 2.00 3.0+(-)1.3 cm 2D Systolic Function EF 4C: 59.70 >55% EF 2C: 67.90 >55% EF BiP: 63.10 >55% LVOT LVOT Pk Jesus: 1.26 LVOT Mn Jesus: 0.95 LVOT VTI: 0.25 LVOT Pk Grad: 6.00 LVOT Mn Grad: 4.00 LVOT Diam: 2.00 LVOT Area: 3.14 Tricuspid Valve RA Press: 3.00 Updated in Other Vendor System with Status of Final Khang Guevara MD electronically signed on 04/25/2022 3:26:08 PM with status of Final
== END ==
LOC: HO.CARD 13:07
PROVIDERS: PCP Internal Medicine; Visit Provider Nurse Practitioner Family
DX: R07.89 Other chest pain (principal); I47.1 Supraventricular tachycardia; R06.02 Shortness of breath; Z98.890 Other specified postprocedural states
CPT/HCPCS: 93242; 93308; Q9957

== ENCOUNTER 2022-05-30 11:18 | Outpatient (REF) | payer MEDICARE, MEDICAID, SELFPAY ==
--- NOTE | ~2022-05-30 | MM_ITS ---
EXAMINATION: MM SCREENING DIGITAL BREAST TOMOSYNTHESIS, BILATERAL CLINICAL INFORMATION: Screening. Asymptomatic. The lifetime risk of breast cancer based on the Tyrer-Cuzick Model is 6%. COMPARISON: Mammography: 05/24/2021, 05/23/2020, 05/19/2019 TECHNIQUE: Digital breast tomosynthesis is performed in both the craniocaudal and mediolateral oblique views along with computer-aided detection (CAD). Synthesized 2D images are generated from the tomosynthesis. FINDINGS: There are scattered areas of fibroglandular density (ACR BI-RADS breast composition Category b). There are no significant masses, abnormal calcifications, or other abnormalities. No architectural abnormality or developing density or significant change from prior studies. The axilla and skin contours are unremarkable. MM/MM tomosynthesis screening BI IMPRESSION: No mammographic evidence of malignancy. ASSESSMENT: BI-RADS 1: Negative RECOMMENDATION: Routine annual mammography screening. This patient's information was entered into a reminder system with a target due date for their next mammogram.
== END 2022-05-30 11:19 | disposition home or self-care (01) ==
LOC: HO.MAMMO 11:18
PROVIDERS: PCP Internal Medicine; Visit Provider Internal Medicine
DX: Z12.31 Encounter for screening mammogram for malignant neoplasm of breast (principal)
CPT/HCPCS: 77063; 77067

== ENCOUNTER → 2022-06-01 08:30 | Outpatient (BNVA) | payer MEDICARE, MEDICAID, SELFPAY | PROVIDERS: PCP Internal Medicine; Referring Provider Internal Medicine; Visit Provider Internal Medicine Cardiovascular Disease | DX: R07.9 Chest pain, unspecified (principal); I47.1 Supraventricular tachycardia; I10 Essential (primary) hypertension; Z79.899 Other long term (current) drug therapy | CPT/HCPCS: 99212 ==

== ENCOUNTER 2022-06-15 08:46 | Outpatient (REF) | payer MEDICARE, MEDICAID, SELFPAY ==
[2022-06-15 11:14] LABS: Anion Gap 14 (12-20); Blood Urea Nitrogen 9 mg/dL (9-16); Carbon Dioxide 25 mmol/L (22-29); Chloride 107 mmol/L (96-108); Estimated Glomerular Filt Rate > 60; Glucose Random 91 mg/dL (60-115); Potassium 4.1 mmol/L (3.3-5.1); Sodium 142 mmol/L (135-145)
== END 2022-06-15 08:47 | disposition home or self-care (01) ==
LOC: HO.LAB 08:46
PROVIDERS: PCP Internal Medicine; Referring Provider Internal Medicine; Visit Provider Internal Medicine Cardiovascular Disease
DX: I47.1 Supraventricular tachycardia (principal); I49.1 Atrial premature depolarization; R06.02 Shortness of breath
CPT/HCPCS: 36415; 80048

== ENCOUNTER → 2022-07-12 14:09 | Outpatient (BNVA) | payer MEDICARE, MEDICAID, SELFPAY | PROVIDERS: PCP Internal Medicine; Referring Provider Internal Medicine; Visit Provider Internal Medicine Cardiovascular Disease | DX: R07.9 Chest pain, unspecified (principal); I47.1 Supraventricular tachycardia | CPT/HCPCS: 93005; 99212 ==

== ENCOUNTER 2022-10-08 09:01 | Outpatient (REF) | payer MEDICARE, MEDICAID, SELFPAY ==
[2022-10-09 22:08] LABS: HPV mRNA E6/E7 rflx Not Detected (Not Detected)
== END 2022-10-08 09:02 | disposition home or self-care (01) ==
LOC: HO.LNP 09:01
PROVIDERS: PCP Internal Medicine; Visit Provider Advanced Practice Midwife
DX: Z01.419 Encounter for gynecological examination (general) (routine) without abnormal findings (principal); Z11.51 Encounter for screening for human papillomavirus (HPV)
CPT/HCPCS: 87624; 88142; G0101

== ENCOUNTER 2022-12-26 14:27 | Outpatient (AMB) | payer MEDICARE, MEDICAID, SELFPAY ==
[2022-12-26 14:30] VITALS: BP 130/90; PULSE 105; O2SAT 97; BMI 27.4
--- NOTE | 2022-12-26 14:30 | A.OFFVIS_ITS ---
Intake Vital Signs 12/26/22 14:30 Height 5 ft 7 in Weight 175 lb BMI 27.4 BP 130/90 H Blood Pressure Location Lt brachial Position Sitting Pulse 105 H Pulse Source Pulse Oximeter Pulse Oximetry (%) 97 Oxygen Delivery Method Room Air Intake Visit Reasons: COPD Intake Note: pt is here as a new patient, for copd, and states her BP has been all over but also tight in chest with stairs and fast walking. Skirt Panel Assembler Required: No Allergies haloperidol [From HALDOL] Adverse Reaction (Severe, Verified 12/26/22 14:48) SEIZURES lisinopril Adverse Reaction (Uncoded 12/26/22 14:48) Cough Medication List - Last Reconciled 12/26/22 by Matilda Raymundo MD albuterol sulfate 90 mcg/actuation 2 puffs PO QID PRN albuterol sulfate 2.5 mg (3 mL) inhalation QID PRN 30 days ascorbic acid (vitamin C) 500 mg PO DAILY atorvastatin 10 mg PO DAILY blood pressure monitor As directed calcium carbonate (Oyster Shell Calcium) 500 mg PO DAILY 90 days cholecalciferol (vitamin D3) 125 mcg PO DAILY cyanocobalamin (vitamin B-12) (Vitamin B-12) 1,000 mcg PO DAILY dextroamphetamine-amphetamine 20 mg 20 mg PO DAILY diltiazem HCl ER 240 mg PO DAILY epinephrine (EpiPen 2-Nico) 0.3 mg (0.3 mL) IM Q30M PRN escitalopram oxalate 10 mg PO DAILY fluticasone propionate 110 mcg/actuation 1 puff PO BID PRN ibuprofen 600 mg PO TID PRN 30 days ipratropium-albuterol 0.5 mg-3 mg(2.5 mg base)/3 mL 3 mL inhalation Q6-8H PRN 30 days loratadine 10 mg PO DAILY losartan 100 mg PO DAILY nebulizers As directed omeprazole 20 mg PO DAILY 90 days quetiapine (Seroquel) 100 mg PO BEDTIME zolpidem (Ambien) 10 mg PO BEDTIME Do you need a note to return to daycare/school/sports/work: No HPI COPD HPI Details This 62 years old female is here for pulmonary evaluation, with chief complaint of shortness of breath on walking or doing any physical work for the last 10 years or so. Back in 2012 she was diagnosed to have COPD. She was treated with the bronchodilators why a nebulizer and also ProAir p.r.n. . The history dictates that she even used O2 2 L/minute at that time for a year or so and then gave up. Patient used to smoke 1 pack a day up until 2006 and was able to quit at that time ( 40 pk years ) Over the past few years her breathing has gradually improved. At present her main complaint is the pain and sort of discomfort in the anterior chest on walking fast or sometimes even at rest. At present she has albuterol inhaler on hand but does not need to use it She also used to have a nebulizer but hardly uses it . Recently she has had a full cardiac workup which was negative. Patient has history of anxiety and mild depression controlled with meds. She is on escitalopram 10 mg a day and also Seraquel 100 mg at night.l She has had longstanding history of poor sleep at night has used Ambien for a few years were currently in spite of using Ambien she slid does not sleep well . She has mild nasal allergy and takes loratadine 10 mg p.r.n.. GERD symptoms are controlled with the use of omeprazole PFSH Medical History Allergic rhinitis Attention deficit hyperactivity disorder (ADHD) Cervical cancer screening Chest pain Chronic obstructive pulmonary disease Depression Elevated blood pressure reading GERD without esophagitis Hirsutism Impacted cerumen of both ears Insomnia Mixed hyperlipidemia Neuropathy Overweight (BMI 25.0-29.9) Primary osteoarthritis of right knee SVT (supraventricular tachycardia) Vitamin D deficiency Surgical History H/O right knee surgery H/O rotator cuff surgery History of colonoscopy History of hand surgery S/P catheter ablation of slow pathway Total knee replacement status Family History Father Medical history unknown Mother Medical history unknown Social History Housing: House Alcohol intake: former Patient Tobacco Use Status: Former Tobacco user e-Cigarette/Vaping Use: Former Use service: No Current occupational status: disabled Gender identity: Female Cognitive needs: Yes Hearing needs: No Vision needs: No Female Reproductive History Menstrual Age of Menarche: 13 Review of Systems Const All systems reviewed & are unremarkable except as noted in HPI and below Eyes Reports no additional complaints ENT Reports no additional complaints Card Reports chest pain (NONSPECIFIC DISCOMFORT IN THE ANTERIOR CHEST, .), Denies irregular heart rhythm and Denies leg edema Resp Reports as per HPI GI Reports heartburn (CONTROLLED WITH OMEPRAZOLE) Reports no additional complaints Musc Reports no additional complaints Skin/Breast Reports system reviewed and no additional complaints, except as documented Neuro Reports no additional complaints Psych Reports anxiety and Reports depression Endo Reports no additional complaints Aller/Immun Reports no additional complaints Physical Exam Vital Signs: Last Vital Signs Pulse 105 H 12/26/22 14:30 BP 130/90 H 12/26/22 14:30 Pulse Ox 97 12/26/22 14:30 Oxygen Delivery Method Room Air 12/26/22 14:30 BMI result Body Mass Index 27.4 Const General: healthy appearing, comfortable, no acute distress, alert and awake Orientation/consciousness: patient oriented x3 HEENT Head: Yes normal to inspection General nose exam: No nasal polyps present and No nasal discharge present Face and sinus: Yes sinuses nontender Mouth: oropharynx normal Throat: Yes posterior oropharynx normal Eyes General: appearance normal, both eyes and all related structures Neck Neck: Yes normal visual inspection, Yes no lymphadenopathy, Yes trachea midline and Yes no JVD Thyroid: Thyroid normal Chest Chest palpation & inspection: normal inspection of the chest, normal palpation of entire chest wall and no tenderness Resp Other: Percussion note is resonant,, breath sounds only slightly distant. With prolonged expiratory phase No wheezes or rhonchi are heard. Cardio Palpation: normal PMI Rate: regular rate Rhythm: regular rhythm Heart sounds: no gallops and no murmurs GI Palpation (GI): Soft to palpation, Tenderness to palpation present (GI), No hepatosplenomegaly present and Palpable mass present Auscultation: normal bowel sounds Back/Spine/Pelvis Thoracic/Lumbar Spine: thoracic and lumbar spine normal to inspection Skin General skin exam: no rashes or lesions noted Neuro General: patient oriented x3 and no focal motor deficits Cranial nerves: Yes CN's II-XII intact bilaterally Extrem General: Yes normal to inspection, Yes no clubbing, cyanosis or edema and Yes no calf tenderness Psych Appearance: grossly normal and well kempt Speech and movement: Normal speech and movement present Results Reviewed Results Reviewed: Results of pulmonary function test from 2012 are reviewed. She had only mild degree of obstructive airway disorder at that time. WILL NEED TO HAVE A REPEAT PULMONARY FUNCTION TEST. Assessment & Plan Assessment & Plan (1) Chest pain: Comment: The chest pain or discomfort is very nonspecific, On examination there is no tenderness. Lungs are clear there is no pleural or pericardial rub. Patient has had full cardiac evaluation and was negative for any significant coronary artery disease. A CHEST X-RAY IS ORDERED TO RULE OUT ANY ANATOMICAL ABNORMALITY. Patient is advised to use heating pad over the tender area, . Only p.r.n. Also may take. Tylenol 2 tablets t.i.d. p.r.n. She is reassured that the pain in the chest is not related to any lung problems. Code(s): R07.9 - Chest pain, unspecified (2) Shortness of breath: Comment: Shortness of breath on exertion is probably related to chronic obstructive pulmonary disease, which should be evaluated with a COMPLETE PULMONARY FUNCTION TEST . THE PFT IS ORDERED Code(s): R06.02 - Shortness of breath (3) Chronic obstructive pulmonary disease: Comment: PATIENT HAS HAD HISTORY OF MILD OBSTRUCTIVE AIRWAY DISORDER BACK IN 2013. PFT, TO EVALUATE THE CURRENT STATUS OF HER LUNG FUNCTION, IS BEING SCHEDULED. TX USE PROAIR 2 PUFFS Q 4-6 HOURS ONLY P.R.N. Code(s): J44.9 - Chronic obstructive pulmonary disease, unspecified Qualifiers: COPD type: unspecified COPD Qualified Code(s): J44.9 - Chronic obstructive pulmonary disease, unspecified Orders: Orders XR chest 2V Today R06.02 - Shortness of breath, R07.9 - Chest pain, unspecified Medications: Changed From losartan 50 mg (2 x 25 mg) PO DAILY 60 tabs 3RF I10 - Essential (primary) hypertension To losartan 100 mg PO DAILY I10 - Essential (primary) hypertension Coding Level of Care Code New Pt Level 4 (65985) Diagnoses Chest pain R07.9 Shortness of breath R06.02 Chronic obstructive pulmonary disease J44.9 COPD type: unspecified COPD
== END 2022-12-26 15:06 | disposition home or self-care (01) ==
PROVIDERS: PCP Internal Medicine; Visit Provider Internal Medicine
DX: R07.9 Chest pain, unspecified (principal); R06.02 Shortness of breath; J44.9 Chronic obstructive pulmonary disease, unspecified
CPT/HCPCS: 99204

== ENCOUNTER 2022-12-26 14:27 | Outpatient (REF) | payer MEDICARE, MEDICAID, SELFPAY ==
--- NOTE | ~2022-12-26 | XR_ITS ---
EXAMINATION: XR CHEST 2 VIEWS CLINICAL INFORMATION: Chest pain. COMPARISON: None. TECHNIQUE: Frontal and lateral views of the chest were obtained. FINDINGS: The heart, great vessels, pulmonary vasculature and mediastinum are normal. The lungs show no focal infiltrate, effusion or pneumothorax. There is a marked lower thoracic dextroscoliosis. There is no acute osseous abnormality. XR/XR chest 2V IMPRESSION: No active cardiopulmonary disease.
== END 2022-12-26 14:28 | disposition home or self-care (01) ==
LOC: HO.XRAY 14:27
PROVIDERS: PCP Internal Medicine; Visit Provider Internal Medicine
DX: R07.9 Chest pain, unspecified (principal); R06.02 Shortness of breath; J44.9 Chronic obstructive pulmonary disease, unspecified
CPT/HCPCS: 71046; 99202

== ENCOUNTER 2023-01-07 10:59 | Outpatient (AMB) | payer MEDICARE, MEDICAID, SELFPAY ==
--- NOTE | 2023-01-07 11:09 | A.OFFVIS_ITS ---
Intake Vital Signs 01/07/23 11:11 Height 5 ft 7 in Weight 173 lb 8 oz BMI 27.2 Intake Visit Reasons: SAWV Intake Note: Patient is here for an Annual Wellness Visit. Range Ecologist Required: No Copier Repair Technician: Copier Repair Technician offered & declined Accompanied by: Self / Same As Patient Allergies haloperidol [From HALDOL] Adverse Reaction (Severe, Verified 01/07/23 11:11) SEIZURES lisinopril Adverse Reaction (Uncoded 12/26/22 14:48) Cough HPI HPI Comments History of Present Illness Details [age] year old female past medical history significant for hyperlipidemia, COPD, GERD, ADHD, depression, hypertension,NSVT, osteopenia. Patient Dr. Pierce last seen in September patient presents today for subsequent a nnual well visit. Mammogram: April 2021 negative recommended follow-up, April 2022 Bone density: Completed in September 2021 showed osteopenia, continue on vitamin-D and calcium. Pap smear: Colonoscopy: Patient up-to-date on recommended immunizations. order labs [place] care was reviewed with patient patient was provided with written screening schedule. HCP, [facility] forms [facility] Medical History Allergic rhinitis Attention deficit hyperactivity disorder (ADHD) Cervical cancer screening Chest pain Chronic obstructive pulmonary disease Depression Elevated blood pressure reading GERD without esophagitis Hirsutism Impacted cerumen of both ears Insomnia Mixed hyperlipidemia Neuropathy Overweight (BMI 25.0-29.9) Primary osteoarthritis of right knee SVT (supraventricular tachycardia) Vitamin D deficiency Surgical History S/P catheter ablation of slow pathway History of colonoscopy H/O rotator cuff surgery Total knee replacement status History of hand surgery H/O right knee surgery Family History Father Medical history unknown Mother Medical history unknown Social History Housing: House Alcohol intake: former Patient Tobacco Use Status: Former Tobacco user e-Cigarette/Vaping Use: Former Use service: No Current occupational status: disabled Gender identity: Female Cognitive needs: Yes Hearing needs: No Vision needs: No Female Reproductive History Menstrual Age of Menarche: 13 Questionnaire Medicare Wellness Checkup What is your age?: 65-69 (62) What gender do you identify with?: female Can you get to places out of walking distance without help? (For eg., can you travel alone on buses, taxis or drive your car?): Yes Can you go shopping for groceries or clothes without someone's help?: Yes Can you prepare your own meals?: Yes Can you do your housework without help?: Yes Because of any health problems, do you need the help of another person with your personal care needs such as eating, bathing, dressing or getting around the house?: No Can you handle your own money without help?: Yes Are you having difficulties driving your car?: no Do you always fasten your seat belt when you are in a car?: yes, usually Have you fallen 2 or more times in the past year?: No Are you afraid of falling?: No Are you a smoker?: no During the past 4 weeks, how many drinks of wine, beer, or other alcoholic beverages did you have?: no alcohol at all Have you been given information to help with the following?: no: Hazards in your house that might hurt you? and no: Keeping track of your medications? How often do you have trouble taking medicines the way you have been told to take them?: I always take medicine as prescribed How confident are you that you can control & manage most of your health problems?: very confident What is your race?: White PHQ-9 Over the last 2 weeks, how often have you been bothered by any of the following problems? 1. Little interest or pleasure in doing things: not at all 2. Feeling down, depressed, or hopeless: not at all 3. Trouble falling or staying asleep, or sleeping too much: not at all 4. Feeling tired or having little energy: not at all 5. Poor appetite or overeating: not at all 6. Feeling bad about yourself - or that you are a failure or have let yourself or your family down: not at all 7. Trouble concentrating on things, such as reading the newspaper or watching television: not at all 8. Moving or speaking so slowly that other people could have noticed. Or the opposite - being so fidgety or restless that you have been moving around a lot more than usual: not at all 9. Thoughts that you would be better off or of hurting yourself in some way: not at all Total score: 0 Depression Screening Interpretation: Negative Source: Developed by Drs. Eliecer Lake, Shawn Hernandez and colleagues, with an educational kamilla from [employer]. Thrive Questionnaire Date Thrive assessed: 01/07/23 I am a: Patient What is your living situation today?: I have a steady place to live Within the past 12 months, did the food you bought not last and you didn't have the money to get more?: Never true Within the past 12 months, did you worry whether your food would run out before you got money to buy more?: Never true Do you have trouble paying for medicines?: No Do you have trouble getting transportation to medical appointments?: No Do you have trouble paying your heating and electricity bill?: No Do you have trouble taking care of your child, family member or friend?: No Do you have trouble with day-to-day activities such as bathing, preparing meals, shopping, managing finances, etc.?: No Are you currently unemployed and looking for a job?: No Are you interested in more education?: No Currently or been in a relationship where the following occur: no concerns reported CHANG-7 AMB Questionnaire CHANG-7 Date CHANG - 7 assessed: 01/07/23 Feeling nervous, anxious, or on edge: 0 = Not at all Not being able to stop or control worryin = Not at all Worrying too much about different things: 0 = Not at all Trouble relaxin = Not at all Being so restless that it is hard to sit still: 0 = Not at all Becoming easily annoyed or irritable: 0 = Not at all Feeling afraid as if something awful might happen: 0 = Not at all Total CHANG-7 score (0-4 normal; 5-9 mild; 10-14 moderate; 15-21 severe): 0 Source: Developed by Drs. Eliecer Lake, Shawn Hernandez and colleagues, with an educational kamilla from [employer]. AUDIT C Alcohol Use Questionnaire (AUDIT-C) 1. How often do you have a drink containing alcohol?: Never Total Score: 0 Quality Reporting (2020) Depression/Bipolar (159/160/161/177) PHQ-9: Total score: 0 Coding
[2023-01-07 11:11] VITALS: BP 126/68; PULSE 95; O2SAT 96; BMI 27.2
--- NOTE | 2023-01-07 11:15 | A.OFFPC_ITS ---
Vital Signs 01/07/23 11:11 Height 5 ft 7 in Weight 173 lb 8 oz BMI 27.2 BP 126/68 Blood Pressure Location Rt brachial Position Sitting Pulse 95 Pulse Source Pulse Oximeter Pulse Oximetry (%) 96 Oxygen Delivery Method Room Air Intake Visit Reasons: [facility] Intake Note: Patient is here to follow up on HTN, med review. Manager Coding Required: No Commercial Loan Coordinator: Not Required per policy Accompanied by: Self / Same As Patient Allergies haloperidol [From HALDOL] Adverse Reaction (Severe, Verified 01/07/23 11:11) SEIZURES lisinopril Adverse Reaction (Uncoded 12/26/22 14:48) Cough Tobacco use date assessed: 10/11/22 HPI HPI Comments History of Present Illness Details 62-year-old female past medical history significant for, insomnia, hyperlipidemia, hypertension, COPD, GERD and depression. Patient Dr. Pierce last seen in September patient presents today for hypertension follow-up. Patient declined having subsequent annual wellness visit completed today as she states she does not have time she needs to be somewhere, will reschedule this for 1 month. Blood pressure optimal in office today 126/68. Patient requesting refills on vitamin-C and vitamin-B for 12. Refill sent. [facility] Medical History Allergic rhinitis Attention deficit hyperactivity disorder (ADHD) Cervical cancer screening Chest pain Chronic obstructive pulmonary disease Depression Elevated blood pressure reading GERD without esophagitis Hirsutism Impacted cerumen of both ears Insomnia Mixed hyperlipidemia Neuropathy Overweight (BMI 25.0-29.9) Primary osteoarthritis of right knee SVT (supraventricular tachycardia) Vitamin D deficiency Surgical History S/P catheter ablation of slow pathway History of colonoscopy H/O rotator cuff surgery Total knee replacement status History of hand surgery H/O right knee surgery Family History Father Medical history unknown Mother Medical history unknown Social History Housing: House Alcohol intake: former Patient Tobacco Use Status: Former Tobacco user e-Cigarette/Vaping Use: Former Use service: No Current occupational status: disabled Gender identity: Female Cognitive needs: Yes Hearing needs: No Vision needs: No Female Reproductive History Menstrual Age of Menarche: 13 Questionnaire PHQ-9 Over the last 2 weeks, how often have you been bothered by any of the following problems? 1. Little interest or pleasure in doing things: several days (currently being treated) Source: Developed by Drs. Eliecer Lake, Josie Mayberry, Shawn Pearson and colleagues, with an educational kamilla from [employer]. Thrive Questionnaire Date Thrive assessed: 01/07/23 I am a: Patient What is your living situation today?: I have a steady place to live Within the past 12 months, did the food you bought not last and you didn't have the money to get more?: Never true Within the past 12 months, did you worry whether your food would run out before you got money to buy more?: Never true Do you have trouble paying for medicines?: No Do you have trouble getting transportation to medical appointments?: No Do you have trouble paying your heating and electricity bill?: No Do you have trouble taking care of your child, family member or friend?: No Do you have trouble with day-to-day activities such as bathing, preparing meals, shopping, managing finances, etc.?: No Are you currently unemployed and looking for a job?: No Are you interested in more education?: No Currently or been in a relationship where the following occur: no concerns reported AUDIT C Alcohol Use Questionnaire (AUDIT-C) 1. How often do you have a drink containing alcohol?: Never Total Score: 0 CHANG-7 AMB Questionnaire CHANG-7 Date CHANG - 7 assessed: 01/07/23 Feeling nervous, anxious, or on edge: 1 = Several days (current being treated ) Source: Developed by Drs. Eliecer Lake, Josie Mayberry, Shawn Pearson and colleagues, with an educational kamilla from [employer]. Review of Systems Const Denies chills, Denies fatigue, Denies fever(s) and Denies poor appetite Eyes Denies no additional complaints ENT Reports Normal hearing present Card Denies chest pain, Denies syncope, Denies rapid heart rate and Denies dyspnea Resp Denies cough and Denies dyspnea GI Denies change in stool character, Denies constipation, Denies diarrhea, Denies nausea and Denies vomiting Denies urinary frequency, Denies dysuria and Denies urinary urgency Neuro Reports Normal hearing present, Denies confusion and Denies syncope Psych Denies confusion Endo Denies fatigue Physical exam (Primary Care) Vital Signs: Last Vital Signs Pulse 95 01/07/23 11:11 BP 126/68 01/07/23 11:11 Pulse Ox 96 01/07/23 11:11 Oxygen Delivery Method Room Air 01/07/23 11:11 BMI result Body Mass Index 27.2 Tobacco/Smoking Status: Tobacco use Status Tobacco use date assessed 10/11/22 01/07/23 11:20 Patient Tobacco Use Status Former Tobacco user 01/07/23 11:20 e-Cigarette/Vaping Use Former Use 01/07/23 11:20 Thrive Assessment: Date of Thrive Assessment Date Thrive assessed 01/07/23 01/07/23 11:20 Currently or been in a relationship where the following occur: no concerns reported Const General: No confusion Orientation/consciousness: No confusion HENMT Head: Yes normocephalic and Yes atraumatic Eyes Conjunctivae: conjunctivae normal Chest Chest palpation & inspection: normal inspection of the chest Resp Effort & Inspection: normal respiratory effort Auscultation: clear to auscultation bilaterally, no crackles, no rhonchi and no wheezes Cardio Rate: regular rate Rhythm: regular rhythm Heart sounds: S1 normal heart sound present and S2 normal heart sound present GI Inspection: Yes normal to inspection Neuro General: No confusion Cranial nerves: Yes Normal hearing present Extrem General: No edema Assessment and Plan Assessment & Plan (1) Hypertension: Code(s): I10 - Essential (primary) hypertension Plan: Continue on losartan 100 mg daily. Follow low-salt diet exercise. (2) Chronic obstructive pulmonary disease: Comment: PATIENT HAS HAD HISTORY OF MILD OBSTRUCTIVE AIRWAY DISORDER BACK IN 2012. PFT, TO EVALUATE THE CURRENT STATUS OF HER LUNG FUNCTION, IS BEING SCHEDULED. TX USE PROAIR 2 PUFFS Q 4-6 HOURS ONLY P.R.N. Code(s): J44.9 - Chronic obstructive pulmonary disease, unspecified Qualifiers: COPD type: unspecified COPD Qualified Code(s): J44.9 - Chronic obstructive pulmonary disease, unspecified Plan: Continue to follow-up pulmonology. (3) Mixed hyperlipidemia: Code(s): E78.2 - Mixed hyperlipidemia Plan: Continue on atorvastatin 10 mg daily. ?Avoid fried foods, chicken skin, eggs, butter,margarine, pastries and? red meat. Plan Follow up in 1 month for SAWV Medications: New ascorbic acid (vitamin C) 500 mg PO DAILY 30 tabs 0RF Refilled cyanocobalamin (vitamin B-12) (Vitamin B-12) 1,000 mcg PO DAILY 90 tabs 0RF Coding Level of Care Code Est Pt Level 3 (04907) Diagnoses Hypertension I10 Chronic obstructive pulmonary disease, unspecified COPD type J44.9 COPD type: unspecified COPD Mixed hyperlipidemia E78.2
== END 2023-01-07 11:32 | disposition home or self-care (01) ==
PROVIDERS: PCP Internal Medicine; Visit Provider Nurse Practitioner Family
DX: I10 Essential (primary) hypertension (principal); J44.9 Chronic obstructive pulmonary disease, unspecified; E78.2 Mixed hyperlipidemia
CPT/HCPCS: 99213

== ENCOUNTER 2023-02-14 14:54 | Outpatient (REF) | payer MEDICARE, MEDICAID, SELFPAY ==
--- NOTE | 2023-02-14 15:44 | PFT_ITS ---
Forced vital capacity 88%, FEV1 80%, FEV1/FVC ratio is 70. JET10-81 50% and MVV 89%. Post bronchodilator therapy, there is a slight improvement in LHG24-80 but no other change. Total lung capacity 84%. Residual volume 85%. Diffusion capacity 80%. CONCLUSION: There is evidence of mild small airway obstructive disorder with improvement after bronchodilator therapy. This finding is consistent with a mild degree of bronchial asthma. Clinical correlation recommended. Matilda Raymundo MD MSB/MODL / [phone]
== END 2023-02-14 14:55 | disposition home or self-care (01) ==
LOC: HO.RESP 14:54
PROVIDERS: PCP Internal Medicine; Visit Provider Internal Medicine
DX: R06.02 Shortness of breath (principal); J44.9 Chronic obstructive pulmonary disease, unspecified
CPT/HCPCS: 94010; 94727; 94729; 99212

== ENCOUNTER 2023-02-14 15:41 | Outpatient (AMB) | payer MEDICARE, MEDICAID, SELFPAY ==
[2023-02-14 15:45] VITALS: BP 154/90; PULSE 108; O2SAT 98
--- NOTE | 2023-02-14 15:45 | MHC.OFFVIS ---
Intake Vital Signs 02/14/23 15:45 Weight 173 lb 1.006 oz BP 154/90 H Blood Pressure Location Lt brachial Position Sitting Pulse 108 H Pulse Source Pulse Oximeter Pulse Oximetry (%) 98 Oxygen Delivery Method Room Air Intake Visit Reasons: Same day PFT Allergies haloperidol [From HALDOL] Adverse Reaction (Severe, Verified 02/14/23 15:47) SEIZURES lisinopril Adverse Reaction (Uncoded 02/14/23 15:47) Cough Medication List - Last Reconciled 02/14/23 by Arely Ramos LPN albuterol sulfate 90 mcg/actuation 2 puffs PO QID PRN albuterol sulfate 2.5 mg (3 mL) inhalation QID PRN 30 days ascorbic acid (vitamin C) 500 mg PO DAILY atorvastatin 10 mg PO DAILY blood pressure monitor As directed calcium carbonate (Oyster Shell Calcium) 500 mg PO DAILY 90 days cholecalciferol (vitamin D3) 125 mcg PO DAILY cyanocobalamin (vitamin B-12) (Vitamin B-12) 1,000 mcg PO DAILY dextroamphetamine-amphetamine 20 mg 20 mg PO DAILY diltiazem HCl ER 240 mg PO DAILY epinephrine (EpiPen 2-Nico) 0.3 mg (0.3 mL) IM Q30M PRN escitalopram oxalate 10 mg PO DAILY fluticasone propionate 110 mcg/actuation 1 puff PO BID PRN ibuprofen 600 mg PO TID PRN 30 days ipratropium-albuterol 0.5 mg-3 mg(2.5 mg base)/3 mL 3 mL inhalation Q6-8H PRN 30 days loratadine 10 mg PO DAILY losartan 100 mg PO DAILY nebulizers As directed omeprazole 20 mg PO DAILY 90 days quetiapine (Seroquel) 100 mg PO BEDTIME zolpidem (Ambien) 10 mg PO BEDTIME Do you need a note to return to daycare/school/sports/work: No HPI Same day PFT HPI Details 62 YEARS OLD FEMALE IS HERE FOR FOLLOW-UP FOR HER SHORTNESS. OF BREATH AND OCCASIONAL WHEEZING SHE CLAIMS THAT SINCE HER LAST VISIT SHE HAS NOT NEEDED TO USE ANY ALBUTEROL. SHE IS FEELING FINE. HAS HAD NO CHEST PAIN OR TIGHTNESS . COMPLAINS OF ONLY MILD SHORTNESS OF BREATH IF SHE WALKS . FAST OR CLIMBS STAIRS DENIES. ANY COUGH OR EXPECTORATION SHE IS NONSMOKER. [facility] Medical History (Updated 02/14/23 @ 16:07 by Matilda Raymundo MD) Asthma Chest pain SVT (supraventricular tachycardia) Elevated blood pressure reading Impacted cerumen of both ears Cervical cancer screening Overweight (BMI 25.0-29.9) Depression Attention deficit hyperactivity disorder (ADHD) Insomnia Hirsutism Primary osteoarthritis of right knee Allergic rhinitis GERD without esophagitis Vitamin D deficiency Neuropathy Chronic obstructive pulmonary disease Mixed hyperlipidemia Surgical History S/P catheter ablation of slow pathway History of colonoscopy H/O rotator cuff surgery Total knee replacement status History of hand surgery H/O right knee surgery Family History Father Medical history unknown Mother Medical history unknown Social History Housing: House Alcohol intake: former Patient Tobacco Use Status: Former Tobacco user e-Cigarette/Vaping Use: Former Use service: No Current occupational status: disabled Gender identity: Female Cognitive needs: Yes Hearing needs: No Vision needs: No Female Reproductive History Menstrual Age of Menarche: 13 Review of Systems Const All systems reviewed & are unremarkable except as noted in HPI and below Eyes Reports no additional complaints ENT Reports no additional complaints Card Reports chest pain (NONSPECIFIC DISCOMFORT IN THE ANTERIOR CHEST, .), Denies irregular heart rhythm and Denies leg edema Resp Reports as per HPI GI Reports heartburn (CONTROLLED WITH OMEPRAZOLE) Reports no additional complaints Musc Reports no additional complaints Skin/Breast Reports system reviewed and no additional complaints, except as documented Neuro Reports no additional complaints Psych Reports anxiety and Reports depression Endo Reports no additional complaints Aller/Immun Reports no additional complaints Physical Exam Vital Signs: Last Vital Signs Pulse 108 H 02/14/23 15:45 BP 154/90 H 02/14/23 15:45 Pulse Ox 98 02/14/23 15:45 Oxygen Delivery Method Room Air 02/14/23 15:45 Const General: healthy appearing, comfortable, no acute distress, alert and awake Orientation/consciousness: patient oriented x3 HEENT Head: Yes normal to inspection General nose exam: No nasal polyps present and No nasal discharge present Face and sinus: Yes sinuses nontender Mouth: oropharynx normal Throat: Yes posterior oropharynx normal Eyes General: appearance normal, both eyes and all related structures Neck Neck: Yes normal visual inspection, Yes no lymphadenopathy, Yes trachea midline and Yes no JVD Thyroid: Thyroid normal Chest Chest palpation & inspection: normal inspection of the chest, normal palpation of entire chest wall and no tenderness Resp Other: Percussion note is resonant,, breath sounds only slightly distant. No wheezes or rhonchi are heard. Cardio Palpation: normal PMI Rate: regular rate Rhythm: regular rhythm Heart sounds: no gallops and no murmurs GI Palpation (GI): Soft to palpation, Tenderness to palpation present (GI), No hepatosplenomegaly present and Palpable mass present Auscultation: normal bowel sounds Back/Spine/Pelvis Thoracic/Lumbar Spine: thoracic and lumbar spine normal to inspection Skin General skin exam: no rashes or lesions noted Neuro General: patient oriented x3 and no focal motor deficits Cranial nerves: Yes CN's II-XII intact bilaterally Extrem General: Yes normal to inspection, Yes no clubbing, cyanosis or edema and Yes no calf tenderness Psych Appearance: grossly normal and well kempt Speech and movement: Normal speech and movement present Results Reviewed Results Reviewed: PULMONARY FUNCTION TEST IS REVIEWED. FVC 88% FEV1 80% FEV1/FVC 70. [id number] 54 % WITH CHIN IMPROVED TO NORMAL AFTER POST BRONCHODILATOR THERAPY. TOTAL LUNG CAPACITY AND RESIDUAL VOLUME NORMAL DIFFUSION CAPACITY NON Assessment & Plan Assessment & Plan (1) Asthma: Comment: PER PULMONARY FUNCTION TEST, I THINK SHE HAS A MILD BRONCHIAL ASTHMA, AND DOES NOT FIT IN THE PICTURE OF COPD WHICH IMPROVES WITH BRONCHODILATOR THERAPY TX : PROAIR 2 PUFFS Q 6 HOURS ONLY NEEDED. SHE DOES NOT NEED TO USE INHALED STEROIDS OR ANY DUONEB UPDRAFTS SHE IS EDUCATED TO AVOID ANY TRIGGERS SUCH DUST FUMES SPRAYS ETC.. Code(s): J45.909 - Unspecified asthma, uncomplicated Coding Level of Care Code Est Pt Level 3 (44366) Diagnoses Asthma J45.909
== END 2023-02-14 16:02 | disposition home or self-care (01) ==
PROVIDERS: PCP Internal Medicine; Visit Provider Internal Medicine
DX: J45.909 Unspecified asthma, uncomplicated (principal)
CPT/HCPCS: 94060; 94727; 94729; 99213

== ENCOUNTER 2023-06-05 10:56 | Outpatient (REF) | payer MEDICARE, MEDICAID, SELFPAY | END 2023-06-05 10:57 | disposition home or self-care (01) | LOC: HO.MAMMO 10:56 | PROVIDERS: PCP Internal Medicine; Visit Provider Internal Medicine | DX: Z12.31 Encounter for screening mammogram for malignant neoplasm of breast (principal) | CPT/HCPCS: 77063; 77067 ==

== ENCOUNTER → 2023-06-05 11:00 | Outpatient (BNV) | payer MEDICARE, MEDICAID, SELFPAY | PROVIDERS: PCP Internal Medicine; Visit Provider Radiology Diagnostic Radiology | DX: Z12.31 Encounter for screening mammogram for malignant neoplasm of breast (principal) | CPT/HCPCS: 77063; 77067 ==

== ENCOUNTER 2023-12-04 14:28 | Outpatient (AMB) | payer MEDICARE, MEDICAID, SELFPAY ==
[2023-12-04 14:51] VITALS: BP 164/98; PULSE 87; O2SAT 96; BMI 28.2
--- NOTE | 2023-12-04 14:51 | A.OFFPC_ITS ---
Vital Signs 12/04/23 14:51 12/04/23 15:26 Height 5 ft 7 in Weight 180 lb BMI 28.2 BP 164/98 H 142/88 H Blood Pressure Location Lt brachial Lt brachial Position Sitting Sitting Pulse 87 Pulse Source Pulse Oximeter Pulse Oximetry (%) 96 Oxygen Delivery Method Room Air Intake Visit Reasons: Hypertension Allergies haloperidol [From HALDOL] Adverse Reaction (Severe, Verified 12/04/23 15:17) SEIZURES lisinopril Adverse Reaction (Uncoded 12/04/23 15:17) Cough Medication List - Last Reconciled 12/04/23 by Maico Pierce MD albuterol sulfate 2.5 mg (3 mL) inhalation QID PRN 30 days albuterol sulfate 90 mcg/actuation 2 puffs PO QID PRN ascorbic acid (vitamin C) 500 mg PO DAILY 90 days atorvastatin 10 mg PO DAILY 90 days blood pressure monitor As directed calcium carbonate (Oyster Shell Calcium) 500 mg PO DAILY 90 days cholecalciferol (vitamin D3) 125 mcg PO DAILY 90 days cyanocobalamin (vitamin B-12) (Vitamin B-12) 1,000 mcg PO DAILY dextroamphetamine-amphetamine 20 mg 20 mg PO DAILY diltiazem HCl ER 240 mg PO DAILY epinephrine (EpiPen 2-Nico) 0.3 mg (0.3 mL) IM Q30M PRN escitalopram oxalate 10 mg PO DAILY fluticasone propionate 110 mcg/actuation 1 puff PO BID PRN hydrochlorothiazide 12.5 mg PO DAILY 30 days ibuprofen 600 mg PO TID PRN 30 days ipratropium-albuterol 0.5 mg-3 mg(2.5 mg base)/3 mL 3 mL inhalation Q6-8H PRN 30 days loratadine 10 mg PO DAILY PRN 90 days losartan 100 mg PO DAILY nebulizers As directed omeprazole 20 mg PO DAILY 90 days quetiapine (Seroquel) 100 mg PO BEDTIME zolpidem (Ambien) 10 mg PO BEDTIME Tobacco use date assessed: 08/05/23 Dental Screening Dental Screen Date: 08/05/23 HPI Hypertension HPI Details Patient comes in today for her follow up visit Relates that she came down with cough/cold symptoms a few weeks ago (around 11/16/2023) and that her symptoms have persisted since and she is only starting to feel a little better in the past couple of days Recalls that she's had to use her nebulizer very often and regularly over the past few weeks to get some relief of her increasing SOB States that her chest still feels tight often currently She denies any fever or sore throat now although she did have sore throat a couple of weeks ago States that she tested herself for COVID twice and both times she came back negative She denies any headaches or dizziness Denies any chest pains, reports (+) FISHER over the past few weeks No nausea/vomiting, no abdominal pain No change in bowel habits noted She has not had any follow up labs done in a couple of years now - also forgot to get her previously ordered labs done recently [facility] Medical History (Updated 12/04/23 @ 15:50 by Maico Pierce MD) Essential hypertension Asthma Chest pain SVT (supraventricular tachycardia) Elevated blood pressure reading Impacted cerumen of both ears Cervical cancer screening Overweight (BMI 25.0-29.9) Depression Attention deficit hyperactivity disorder (ADHD) Insomnia Hirsutism Primary osteoarthritis of right knee Allergic rhinitis GERD without esophagitis Vitamin D deficiency Neuropathy Chronic obstructive pulmonary disease Mixed hyperlipidemia Surgical History S/P catheter ablation of slow pathway History of colonoscopy H/O rotator cuff surgery Total knee replacement status History of hand surgery H/O right knee surgery Family History Father Medical history unknown Mother Medical history unknown Social History Housing: House Alcohol intake: former Patient Tobacco Use Status: Former Tobacco user e-Cigarette/Vaping Use: Former Use service: No Current occupational status: disabled Gender identity: Female Cognitive needs: Yes Hearing needs: No Vision needs: No Female Reproductive History Menstrual Age of Menarche: 13 Questionnaire Thrive Questionnaire Date Thrive assessed: 08/05/23 CHANG-7 AMB Questionnaire CHANG-7 Date CHANG - 7 assessed: 08/05/23 Source: Developed by Drs. Eliecer Lake, Josie Mayberry, Shawn Pearson and colleagues, with an educational kamilla from [employer]. Review of Systems Const Denies chills, Reports fatigue (mild), Denies fever(s) and Denies headache(s) ENT Denies dysphagia, Denies dizziness, Denies otalgia, Denies headache(s), Denies neck pain, Denies odynophagia and Denies sore throat Card Denies chest pain, Denies palpitations and Reports dyspnea on exertion (lately) Resp Reports chest congestion (chest feels tight often lately), Reports cough (recurrent ), Reports dyspnea on exertion (lately) and Denies wheezing GI Denies abdominal pain, Denies constipation, Denies dysphagia, Denies heartburn, Denies diarrhea, Denies nausea, Denies odynophagia and Denies vomiting Denies difficulty voiding, Denies nocturia, Denies dysuria and Denies urinary urgency Musc Denies back pain and Denies neck pain Skin/Breast Denies rash Neuro Denies dizziness and Denies headache(s) Endo Reports fatigue (mild) and Denies palpitations Aller/Immun Denies wheezing Physical exam (Primary Care) Vital Signs: Last Vital Signs Pulse 87 12/04/23 14:51 BP 164/98 H 12/04/23 14:51 Pulse Ox 96 12/04/23 14:51 Oxygen Delivery Method Room Air 12/04/23 14:51 BMI result Body Mass Index 28.2 Tobacco/Smoking Status: Tobacco use Status Tobacco use date assessed 08/05/23 12/04/23 14:51 Patient Tobacco Use Status Former Tobacco user 12/04/23 14:51 e-Cigarette/Vaping Use Former Use 12/04/23 14:51 Thrive Assessment: Date of Thrive Assessment Date Thrive assessed 08/05/23 12/04/23 14:51 Const General: no acute distress and alert HENMT Ears: TM's normal bilaterally and EAC's normal Throat: Yes posterior oropharynx normal and Yes tonsils normal (no TP congestion noted) Neck Neck: Yes no lymphadenopathy and Yes supple Thyroid: Thyroid normal Resp Auscultation: no crackles, no rales, no wheezes and diminished lung sounds (significantly) bilateral Cardio Rate: regular rate Rhythm: regular rhythm Heart sounds: no murmurs GI Palpation (GI): Soft to palpation and nontender Auscultation: normal bowel sounds General: Yes no CVA tenderness Back/Spine/Pelvis Back: no CVA tenderness Thoracic/Lumbar Spine: No lumbar spinal tenderness Skin Rashes: no rashes Extrem General: Yes no clubbing, cyanosis or edema Assessment and Plan Assessment & Plan (1) Asthma exacerbation: Code(s): J45.901 - Unspecified asthma with (acute) exacerbation Qualifiers: Asthma severity: unspecified severity Asthma persistence: persistent Qualified Code(s): J45.901 - Unspecified asthma with (acute) exacerbation Plan: Patient is advised that she currently appears to have a significant flare up/exacerbation of her asthma, as her lungs sound very tight to the point where I cannot tell if she has any expiratory wheezing or not This is consistent with her recurrent sensations of chest tightness lately and her need to use her nebulizer frequently lately - is likely brought on by her recent bout of respiratory infection Will start her empirically on Azithromycin as well as oral prednisone taper She is advised to call back if she still does not experience any significant improvement of her respiratory symptoms in 7 to 10 days despite her Rx - may need to get chest x-rays then for further evaluation (2) Mixed hyperlipidemia: Code(s): E78.2 - Mixed hyperlipidemia Plan: Patient has not had any follow up labs done in a while now and still has not been able to get her previously ordered labs done yet - is instructed to go and get them done YO[facility] Reinforced low cholesterol diet Continue Atorvastatin 10 mg once a day Will recheck her labs and fasting lipids in 4 months for follow-up (3) Essential hypertension: Code(s): I10 - Essential (primary) hypertension Plan: Reinforced low sodium diet - goal is systolic BP of at least 130 mm or less Continue Losartan 100 mg QD, Diltiazem ER 240 mg QD and HCTZ 12.5 mg QD Patient is reminded to continue monitoring his blood pressure regularly (4) Neuropathy: Code(s): G62.9 - Polyneuropathy, unspecified Plan: Continue Lyrica 75 mg twice a day and Vitamin B12 tablet 1000 mcg daily (5) Vitamin D deficiency: Code(s): E55.9 - Vitamin D deficiency, unspecified Plan: Continue Vitamin-D 5000 units once a day (6) GERD without esophagitis: Code(s): K21.9 - Gastro-esophageal reflux disease without esophagitis Plan: Dietary restrictions reinforced Continue Omeprazole 20 mg once a day (7) Allergic rhinitis: Code(s): J30.9 - Allergic rhinitis, unspecified Qualifiers: Allergic rhinitis trigger: unspecified Allergic rhinitis seasonality: unspecified Qualified Code(s): J30.9 - Allergic rhinitis, unspecified Plan: Continue Loratadine 10 mg QD PRN (8) Primary osteoarthritis of right knee: Code(s): M17.11 - Unilateral primary osteoarthritis, right knee Plan: Continue Nabumetone 500 mg twice a day with food as needed and Acetaminophen 500 mg once a day at bedtime as needed for increased joint pain States that Orthopedics ([facility]) has recommended knee replacement surgery for her but she prefers to put this off until after the current pandemic is resolved (9) Insomnia: Code(s): G47.00 - Insomnia, unspecified Qualifiers: Insomnia type: unspecified Qualified Code(s): G47.00 - Insomnia, unspecified Plan: Sleep hygiene reinforced Continue Zolpidem 10 mg 1 tablet daily at bedtime as needed (per psychiatry) (10) Hirsutism: Code(s): L68.0 - Hirsutism Plan: Continue Spironolactone 100 mg twice a day Follow-up with endocrinology (Dr. Moser) as scheduled (11) Attention deficit hyperactivity disorder (ADHD): Code(s): F90.9 - Attention-deficit hyperactivity disorder, unspecified type Qualifiers: Attention deficit-hyperactivity disorder type: unspecified Qualified Code(s): F90.9 - Attention-deficit hyperactivity disorder, unspecified type Plan: Continue Adderall XR 20-20 mg 1 tablet QD States that she is currently seeing a therapist and they are actively trying to get her in to see a psychiatrist YOEL States that psychiatry will then eventually take over prescriptions for her ADHD Rx (12) Depression: Code(s): F32.9 - Major depressive disorder, single episode, unspecified Qualifiers: Depression Type: major depressive disorder Major depression recurrence: recurrent Active/Remission status: currently active Major depression episode severity: unspecified Qualified Code(s): F33.9 - Major depressive disorder, recurrent, unspecified Plan: Continue Seroquel 100 mg Q HS and Escitalopram 10 mg QD Follow-up with Psychiatry as scheduled (13) Overweight (BMI 25.0-29.9): Code(s): E66.3 - Overweight Plan: Reinforced diet/exercise as tolerated /lose weight Plan Follow up in 4 months Orders: Orders TSH reflex Free T4 Today E78.00 - Pure hypercholesterolemia, unspecified Vitamin D 25-OH Total Today E55.9 - Vitamin D deficiency, unspecified Comprehensive [place]. Panel Fast 4 Months E78.00 - Pure hypercholesterolemia, unspecified Lipid Panel 4 Months E78.00 - Pure hypercholesterolemia, unspecified UA CC w/rflx Micro + Cult 4 Months R30.0 - Dysuria Complete Blood Count Auto Diff Today D64.9 - Anemia, unspecified Comprehensive [place]. Panel Fast Today E78.00 - Pure hypercholesterolemia, unspecified Lipid Panel Today E78.00 - Pure hypercholesterolemia, unspecified UA CC w/rflx Micro + Cult Today R30.0 - Dysuria Medications: New azithromycin take 500 mg today (day 1), then 250 mg for 4 days (days 2-5) PO 6 tabs 0RF prednisone 4 tablets x 3 days, then 3 tablets x 3 days, then 2 tablets x 3 days, then 1 tablet x 3 days 12 days 33 ea 0RF J45.901 - Unspecified asthma with (acute) exacerbation, M25.50 - Pain in unspecified joint Coding Level of Care Code Est Pt Level 4 (46704) Diagnoses Exacerbation of persistent asthma, unspecified asthma severity J45.901 Asthma severity: unspecified severity Asthma persistence: persistent Mixed hyperlipidemia E78.2 Essential hypertension I10 Neuropathy G62.9 Vitamin D deficiency E55.9 GERD without esophagitis K21.9 Allergic rhinitis, unspecified seasonality, unspecified trigger J30.9 Allergic rhinitis trigger: unspecified Allergic rhinitis seasonality: unspecified Primary osteoarthritis of right knee M17.11 Insomnia, unspecified type G47.00 Insomnia type: unspecified Hirsutism L68.0 Attention deficit hyperactivity disorder (ADHD), unspecified ADHD type F90.9 Attention deficit-hyperactivity disorder type: unspecified Episode of recurrent major depressive disorder, unspecified depression episode severity F33.9 Depression Type: major depressive disorder Major depression recurrence: recurrent Active/Remission status: currently active Major depression episode severity: unspecified Overweight (BMI 25.0-29.9) E66.3
[2023-12-04 15:26] VITALS: BP 142/88
== END 2023-12-04 15:30 | disposition home or self-care (01) ==
PROVIDERS: PCP Internal Medicine; Visit Provider Internal Medicine
DX: J45.901 Unspecified asthma with (acute) exacerbation (principal); E78.2 Mixed hyperlipidemia; I10 Essential (primary) hypertension; G62.9 Polyneuropathy, unspecified; E55.9 Vitamin D deficiency, unspecified; K21.9 Gastro-esophageal reflux disease without esophagitis; J30.9 Allergic rhinitis, unspecified; M17.11 Unilateral primary osteoarthritis, right knee; G47.00 Insomnia, unspecified; L68.0 Hirsutism; F90.9 Attention-deficit hyperactivity disorder, unspecified type
CPT/HCPCS: 99214

== ENCOUNTER 2024-05-01 10:41 | Inpatient (IN) | payer MEDICARE, MEDICAID, SELFPAY ==
--- NOTE | 2024-05-01 | ECG_ITS ---
Test Reason : PRE OP CLEARANCE Blood Pressure : / mmHG Vent. Rate : 077 BPM Atrial Rate : 077 BPM P-R Int : 176 ms QRS Dur : 100 ms QT Int : 404 ms P-R-T Axes : 046 054 013 degrees QTc Int : 457 ms Normal sinus rhythm with sinus arrhythmia Low voltage QRS Incomplete right bundle branch block Borderline ECG When compared with ECG of 01-MAY-2024 11:51, No significant change was found Referred By: Forrest Faith Electronically Signed By:JOSE MANUEL DAVIS MD
--- NOTE | ~2024-05-01 | FL_ITS ---
EXAMINATION: FLUORO GUIDANCE IN OR CLINICAL INFORMATION: Right intramedullary nail COMPARISON: Comparison is made with the prior examination of the right knee dated 05/01/2024. TECHNIQUE: Fluoroscopy time: 1.3 minutes. Cumulative Dose: 19.4 mGy. DAP: 0.232 mGy-m2 (milligray-meter squared). Images: 4. FINDINGS: Images demonstrate placement of an intramedullary josephine in the distal femur maintaining the previously noted fracture of the distal radial metaphysis and anatomic alignment. A right knee prosthesis is again noted. FL/FL guidance in OR IMPRESSION: Fluoroscopy during procedure. Please see procedure report for additional information. Electronically signed by: Eliecer Kennedy MD 05/06/2024 09:15 AM [facility]
--- NOTE | ~2024-05-01 | XR_ITS ---
EXAMINATION: XR CHEST CLINICAL INFORMATION: fall COMPARISON: None available. TECHNIQUE: Frontal view of the chest was obtained. FINDINGS: No significant abnormality is noted involving the heart, lungs, mediastinum, bony thorax or soft tissues. XR/XR chest 1V IMPRESSION: Unremarkable chest examination. Electronically signed by: oRn Dickerson MD 05/01/2024 02:34 PM [facility]
--- NOTE | ~2024-05-01 | XR_ITS ---
EXAMINATION: XR RIGHT KNEE AND RIGHT HIP. CLINICAL INFORMATION: pain and fall COMPARISON: None available. TECHNIQUE: 2 views of the right knee. AP pelvis and right knee 3 views FINDINGS: AP pelvis and right hip: Normal symmetry of both hip joints and SI joints. No visible acute fracture, dislocation or bony abnormality seen. The soft tissues are normal. AP and frog-leg views right hip reveal no visible acute fracture, dislocation or subluxation seen. The soft tissues are normal. Right knee: AP and lateral views right knee reveals total right knee prosthesis with a right supracondylar oblique displaced fracture. The proximal tibia and tibial prosthesis are in alignment. There is mild joint effusion and soft tissue swelling. XR/XR knee RT 2V IMPRESSION: Total right knee prosthesis alignment. There is a right supracondylar displaced fracture with mild joint effusion. Unremarkable AP pelvis and right hip exam. Electronically signed by: Ron Dickerson MD 05/01/2024 02:37 PM [facility]
--- NOTE | ~2024-05-01 | XR_ITS ---
EXAMINATION: XR RIGHT KNEE AND RIGHT HIP. CLINICAL INFORMATION: pain and fall COMPARISON: None available. TECHNIQUE: 2 views of the right knee. AP pelvis and right knee 3 views FINDINGS: AP pelvis and right hip: Normal symmetry of both hip joints and SI joints. No visible acute fracture, dislocation or bony abnormality seen. The soft tissues are normal. AP and frog-leg views right hip reveal no visible acute fracture, dislocation or subluxation seen. The soft tissues are normal. Right knee: AP and lateral views right knee reveals total right knee prosthesis with a right supracondylar oblique displaced fracture. The proximal tibia and tibial prosthesis are in alignment. There is mild joint effusion and soft tissue swelling. XR/XR hip RT min 2V w/wo pel IMPRESSION: Total right knee prosthesis alignment. There is a right supracondylar displaced fracture with mild joint effusion. Unremarkable AP pelvis and right hip exam. Electronically signed by: Ron Dickerson MD 05/01/2024 02:37 PM EST
--- NOTE | ~2024-05-01 | CT_ITS ---
CLINICAL HISTORY: fall pain CT pelvis without IV contrast. COMPARISON: XR pelvis and right hip dated 05/01/24 at 11:32 EST FINDINGS: Visualized portions of the proximal femur appear intact bilaterally. Femoral heads are appropriately seated within the acetabulum. Moderate degenerative changes of the bilateral hips with joint space narrowing and small osteophytes along the inferior margin of the femoral heads. Bones of the pelvis appear intact. [id number] lower lumbar spondylosis. No evidence of injury to the urinary bladder. No free fluid present within the pelvis. No adnexal mass. Visualized portions of the bowel in the pelvis appear unremarkable. IMPRESSION: 1. No acute pelvic findings. No fracture identified. This document has been electronically signed by: Doroteo Dailey MD on 05/01/2024 13:53:38
[2024-05-01 10:48] VITALS: BP 124/77; BP 140/117; PULSE 71; PULSE 76; RESP 20; TEMP 36.4; O2SAT 98; O2SAT 99; BMI 25.1
--- NOTE | 2024-05-01 10:54 | ED.FALL ---
HPI - Fall General Chief Complaint: Fall Stated Complaint: FALL, R KNEE PAIN PER EMS Time Seen by Provider: 05/01/24 10:46 Source: patient, EMS and old records reviewed Mode of arrival: EMS Limitations: no limitations History of Present Illness ED Provider: PATI CASTAÑEDA Narrative: 63 yo female with PMH of asthma, HTN, PAC, SVT, ADHD, GERD, COPD not on blood thinners here with c/o trip and fall about 4 stairs where her R knee that has TKR went under now she has pain at that site and distal thigh. She was not on the floor for long no head or neck strike, she only has pain in R knee. She cannot walk now. No other injuries. No preceding symptoms such as dizziness, CP/SOB. TKR 5 years ago in [place] complaint: fall Onset (ago): minute(s) ([employer]) Fall from: standing Fall witnessed: no Place fall occurred: home Loss of consciousness: none Prolonged down time: no Symptoms prior to fall: none Context: tripped/slipped Location of injury - extremities: right: knee Severity: moderate Quality: throbbing Associated symptoms (after fall): unable to walk Related Data Home Medications ?Medication ?Instructions ?Recorded ?Confirmed dextroamphetamine-amphetamine 20 20 mg PO DAILY 09/29/21 12/04/23 mg tablet escitalopram oxalate 10 mg tablet 10 mg PO DAILY 12/27/21 12/04/23 quetiapine 400 mg tablet (Seroquel) 100 mg PO BEDTIME 06/01/22 12/04/23 fluticasone propionate 110 1 puff PO BID PRN 12/26/22 12/04/23 mcg/actuation HFA aerosol inhaler zolpidem 10 mg tablet (Ambien) 10 mg PO BEDTIME 12/26/22 12/04/23 Previous Rx's ?Medication ?Instructions ?Recorded ipratropium 0.5 mg-albuterol 3 mg 3 ml inhalation Q6-8H PRN 03/09/20 (2.5 mg base)/3 mL nebulization shortness of breath or wheezing 30 soln days #180 mL nebulizers #1 ea 03/09/20 blood pressure monitor #1 ea 08/18/21 diltiazem HCl 240 mg 240 mg PO DAILY #30 tabs 03/19/23 tablet,extended release 24 hr calcium carbonate (Oyster Shell 500 mg PO DAILY 90 days #90 tabs 06/07/23 Calcium) cholecalciferol (vitamin D3) 125 125 mcg PO DAILY 90 days #90 caps 08/05/23 mcg (5,000 unit) capsule epinephrine 0.3 mg/0.3 mL 0.3 mg (0.3 mL) IM Q30M PRN 08/05/23 injection, auto-injector (EpiPen anaphylaxis #2 ea 2-Ncio) loratadine 10 mg tablet 10 mg PO DAILY PRN allergy 08/05/23 symptoms 90 days #90 tabs omeprazole 20 mg capsule,delayed 20 mg PO DAILY 90 days #90 caps 08/05/23 release albuterol sulfate 2.5 mg/3 mL 2.5 mg (3 mL) inhalation QID PRN 09/18/23 (0.083 %) solution for nebulization shortness of breath or wheezing 30 days #360 mL azithromycin 250 mg tablet See Rx Instructions PO .COMPLEX #6 12/04/23 tabs prednisone 10 mg tablets in a dose See Rx Instructions PO PER PKG DIR 12/04/23 pack 12 days #33 ea losartan 100 mg tablet 100 mg PO DAILY #90 tabs 01/05/24 albuterol sulfate 90 mcg/actuation 2 puff PO QID PRN shortness of 01/23/24 aerosol inhaler breath or wheezing #8.5 grams atorvastatin 10 mg tablet 10 mg PO DAILY 90 days #90 tabs 01/28/24 ascorbic acid (vitamin C) 500 mg 500 mg PO DAILY 90 days #90 tabs 02/07/24 tablet cyanocobalamin (vitamin B-12) 1,000 mcg PO DAILY #90 tabs 02/08/24 1,000 mcg tablet (Vitamin B-12) hydrochlorothiazide 12.5 mg tablet 12.5 mg PO DAILY 30 days #30 tabs 03/01/24 ibuprofen 600 mg tablet 600 mg PO TID PRN pain 30 days #90 03/28/24 tabs Allergies Allergy/AdvReac Type Severity Reaction Status Date / Time haloperidol [From HALDOL] AdvReac Severe SEIZURES Verified 05/01/24 10:50 lisinopril AdvReac Cough Uncoded 05/01/24 10:50 Review of Systems Review of Systems: Constitutional : No Fever, No Chills ENT/Mouth : No Ear Pain, No Hoarseness, No sore throat Eyes: No Eye Pain, No Swelling, No Redness, No Foreign Body Cardiovascular : No Chest Pain, No SOB Respiratory : No Cough, No Dyspnea Gastrointestinal : No Nausea, No Vomiting, No Diarrhea, No abdominal Pain Genitourinary : No Dysuria, No Hematuria Musculoskeletal : positive joint pain, No Myalgias, No Joint Swelling Skin : No Skin lacerations, No rash Neuro : No Weakness, No Numbness, No Loss of Consciousness, No Dizziness, No Headache All other systems reviewed and are negative [facility] Past Medical History Attestation statement: The following information was validated with the patient. Source: old records reviewed Medical History Essential hypertension Asthma Chest pain SVT (supraventricular tachycardia) Elevated blood pressure reading Impacted cerumen of both ears Cervical cancer screening Overweight (BMI 25.0-29.9) Depression Attention deficit hyperactivity disorder (ADHD) Insomnia Hirsutism Primary osteoarthritis of right knee Allergic rhinitis GERD without esophagitis Vitamin D deficiency Neuropathy Chronic obstructive pulmonary disease Mixed hyperlipidemia Surgical History S/P catheter ablation of slow pathway History of colonoscopy H/O rotator cuff surgery Total knee replacement status History of hand surgery H/O right knee surgery Family History Family History Father Medical history unknown Mother Medical history unknown Social History Social History Housing: House Alcohol intake: former Patient Tobacco Use Status: Former Tobacco user Smoked in Last 30 Days: No e-Cigarette/Vaping Use: Former Use Advance Directives: Yes Advance Directives Information Provided: Yes Advance Directives on File: No service: No Current occupational status: disabled Gender identity: Female Cognitive needs: Yes Hearing needs: No Vision needs: No Physical Exam Vital Signs: Vital Signs: Last Vital Signs Temp 97.5 F 05/01/24 10:48 Pulse 76 05/01/24 12:43 Resp 20 05/01/24 12:43 BP 119/78 05/01/24 12:43 Pulse Ox 95 05/01/24 12:43 O2 Del Method Room Air 05/01/24 12:43 BMI result Body Mass Index 25.1 Appearance: Alert. Oriented X3. No acute distress. Eyes: Pupils equal, round and reactive to light. ENT: Pharynx normal. atraumatic Neck: Normal inspection. Neck supple. no midline ttp CVS: Normal heart rate and rhythm. Pulses normal. Respiratory: No respiratory distress. Breath sounds normal. Abdomen: Soft and nontender. Skin: Skin warm and dry. Normal skin color. Normal skin turgor. Extremities: No lower extremity edema. R knee and distal femur pain and swelling, superficial abrasion to anterior klein denies ankle or foot pain, SILT intact, compartments soft and compressible, 2+ DP pulse Neuro: Oriented X 3. No motor deficit. No sensory deficit. CN2-12 intact Medications Administered Discontinued Medications Generic Name Dose Route Start Last Admin Trade Name Yashq PRN Reason Stop Dose Admin Hydromorphone HCl 1 mg 05/01/24 11:48 05/01/24 11:52 Hydromorphone Hcl 1 Mg/Ml Syringe IVPUSH 05/01/24 11:49 1 mg ONCE ONE Administration Protocol Hydromorphone HCl 1 mg 05/01/24 12:35 05/01/24 12:46 Hydromorphone Hcl 1 Mg/Ml Syringe IVPUSH 05/01/24 12:36 1 mg ONCE ONE Administration Protocol Morphine Sulfate 4 mg 05/01/24 10:54 05/01/24 11:10 Morphine Sulfate 4 Mg/Ml Cartridge IVPUSH 05/01/24 10:55 4 mg ONCE ONE Administration Protocol Ondansetron HCl 4 mg 05/01/24 10:54 05/01/24 11:10 Ondansetron Hcl 4 Mg/2 Ml Vial IVPUSH 05/01/24 10:55 4 mg ONCE ONE Administration Medical Decision Making Medical Decision Making [facility] Narrative: 63 yo female with PMH of asthma, HTN, PAC, SVT, ADHD, GERD, COPD not on blood thinners here with c/o R knee injury s/p mechanical fall no headstrike at this time basic labs, R knee and hip xray, IV morphine for pain doubt ICH or neck trauma has no midline ttp. Differential Diagnosis Differential Diagnoses: The differential diagnosis associated with the presentation includes contusion, fracture, spasm Admission/Observation Consideration of admission/observation: Escalation of care including admission/observation considered orthopedics to admit Consult Healthcare Provider Management of the patient was discussed with: General Ledger Bookkeeper orthopedics notified want CT scan of hip Lab Data MDM Lab Attestation statement: I reviewed the patient's lab results. 05/01/24 11:06 05/01/24 11:06 Labs: Lab Results 05/01/24 05/01/24 Range/Units 11:06 13:16 WBC 9.4 (4.8-10.8) X10*3/uL RBC 3.96 L (4.20-5.50) X10*6/uL Hgb 12.3 (12.0-16.0) g/dl Hct 35.6 L (37.0-47.0) % MCV 89.9 (80.0-98.0) fL MCH 31.1 (27.0-33.0) pg MCHC 34.6 (31.0-35.0) g/dl RDW 13.5 (11.0-16.0) % Plt Count 179 (160-400) X10*3/uL MPV 10.6 (9.4-12.3) fL Immature Gran % (Auto) 0.3 (0.0-0.4) % Neut % (Auto) 75.0 H (45-73) % Lymph % (Auto) 16.0 L (20-40) % [place]ley % (Auto) 6.3 (2-11) % Eos % (Auto) 1.9 (0-4) % Baso % (Auto) 0.5 (0-2) % Lymph # (Auto) 1.5 (1.2-4.9) X10*3/uL [place] # (Auto) 0.6 (0.1-1.2) X10*3/uL Eos # (Auto) 0.2 (0.0-0.4) X10*3/uL Baso # (Auto) 0.1 (0.0-0.2) X10*3/uL Abs Immat Gran (auto) 0.03 (0.00-0.03) X10*3/uL Absolute Neuts (auto) 7.0 (2.0-8.3) x10*3/uL Absolute Nucleated RBC 0.000 (0.0-0.012) X10*3/uL Nucleated RBC % (auto) 0.0 (0.0-0.2) /100WBC PT 10.2 L (10.9-12.4) SEC INR 0.9 (0.9-1.1) Sodium 139 (135-145) mmol/L Potassium 4.3 (3.3-5.1) mmol/L Chloride 113 H (96-108) mmol/L Carbon Dioxide 20 L (22-29) mmol/L Anion Gap 10 L (12-20) BUN 16 (9-16) mg/dL Creatinine 0.79 (0.5-1.4) mg/dL Estim Creat Clear Calc 70.0 Estimated GFR > 60 Random Glucose 106 (60-115) mg/dL Calcium 8.1 L D (8.4-10.2) mg/dL Magnesium 2.2 (1.6-2.6) mg/dL Total Bilirubin 0.3 (0.0-1.0) mg/dL Direct Bilirubin < 0.1 (0.0-0.5) mg/dL AST 34 H (5-31) U/L ALT 27 (0-31) U/L Alkaline Phosphatase 79 (39-117) U/L Total Protein 6.1 L (6.5-8.0) g/dL Albumin 3.5 (3.5-5.0) g/dL Blood Type O Negative Antibody Screen NEGATIVE Independent Interpretation I performed an independent interpretation of an: EKG, Plain X-Ray (R femur fracture) and CT Scan (no hip fracture) Interpretation: Rate: 71 Rhythm: NSR [place]: normal Normal P waves. Normal LARA. Normal QRS complex. ST T wave : flat t waves aVL, no LISSET qTC: 465 prior studies: no acute ischemia The study has been interpreted contemporaneously by me. . Radiology Impression Discussion of test interpretation with radiology: I have reviewed the radiologist's reading. Independent Historian Clinical information obtained from an independent historian. History obtained from or confirmed by: EMS External Record Review External record reviewed: Outpatient record Critical Care Time Critical Care Time Critical Care Time: Yes Total Critical Care Time: 45 Attestation: repeat IV pain medications, review of records, consult, admission I attest to this time spent taking care of the patient Discharge Plan Discharge Clinical Impression: Femoral distal fracture Patient Disposition: Admitted As Inpatient Prescriptions: No Action diltiazem HCl 240 mg tablet extended release 24 hr 240 mg PO DAILY Qty: 30 6RF calcium carbonate [Oyster Shell Calcium] 500 mg calcium (1,250 mg) tablet 500 mg PO DAILY 90 Days Qty: 90 2RF albuterol sulfate 2.5 mg /3 mL (0.083 %) solution for nebulization 2.5 mg inhalation QID PRN (Reason: shortness of breath or wheezing) 30 Days Qty: 360 0RF losartan 100 mg tablet 100 mg PO DAILY Qty: 90 1RF albuterol sulfate 90 mcg/actuation HFA aerosol inhaler 2 puff PO QID PRN (Reason: shortness of breath or wheezing) Qty: 8.5 5RF atorvastatin 10 mg tablet 10 mg PO DAILY 90 Days Qty: 90 1RF ascorbic acid (vitamin C) 500 mg tablet 500 mg PO DAILY 90 Days Qty: 90 1RF cyanocobalamin (vitamin B-12) [Vitamin B-12] 1,000 mcg tablet 1,000 mcg PO DAILY Qty: 90 0RF hydrochlorothiazide 12.5 mg tablet 12.5 mg PO DAILY 30 Days Qty: 30 1RF ibuprofen 600 mg tablet 600 mg PO TID PRN (Reason: pain) 30 Days Qty: 90 0RF Rx Instructions: Take with food ipratropium-albuterol 0.5 mg-3 mg(2.5 mg base)/3 mL solution for nebulization 3 ml inhalation Q6-8H PRN (Reason: shortness of breath or wheezing) 30 Days Qty: 180 3RF (DME) nebulizers Misc See Rx Instructions .ROUTE .MEDSUPPLY Qty: 1 0RF Rx Instructions: As directed fluticasone propionate 110 mcg/actuation HFA aerosol inhaler 1 puff PO BID PRN cholecalciferol (vitamin D3) 125 mcg (5,000 unit) capsule 125 mcg PO DAILY 90 Days Qty: 90 3RF epinephrine [EpiPen 2-Nico] 0.3 mg/0.3 mL auto-injector 0.3 mg IM Q30M PRN (Reason: anaphylaxis) Qty: 2 0RF Rx Instructions: do not exceed 12 doses per 24 hrs omeprazole 20 mg capsule,delayed release(DR/EC) 20 mg PO DAILY 90 Days Qty: 90 1RF loratadine 10 mg tablet 10 mg PO DAILY PRN (Reason: allergy symptoms) 90 Days Qty: 90 3RF (DME) blood pressure monitor Kit See Rx Instructions .Route Qty: 1 0RF Rx Instructions: As directed dextroamphetamine-amphetamine 20 mg tablet 20 mg PO DAILY azithromycin 250 mg tablet See Rx Instructions PO .COMPLEX Qty: 6 0RF Rx Instructions: take 500 mg today (day 1), then 250 mg for 4 days (days 2-5) PO prednisone 10 mg tablets,dose pack See Rx Instructions PO PER PKG DIR 12 Days Qty: 33 0RF Rx Instructions: 4 tablets x 3 days, then 3 tablets x 3 days, then 2 tablets x 3 days, then 1 tablet x 3 days quetiapine [Seroquel] 400 mg tablet 100 mg PO BEDTIME zolpidem [Ambien] 10 mg tablet 10 mg PO BEDTIME escitalopram oxalate 10 mg tablet 10 mg PO DAILY Print Language: [place]
[2024-05-01] MEDS: Morphine Sulfate 4 MG/ML CARTRIDGE IVPUSH (11:10)
[2024-05-01] MEDS: ondansetron HCL 4 MG/2 ML VIAL IVPUSH (11:10)
[2024-05-01 11:11] LABS: MANUAL DIFF FLAG NO
[2024-05-01 11:16] LABS: Basophils Absolute Auto 0.1 X10*3/uL (0.0-0.2); Basophils Percent Auto 0.5 % (0-2); Eosinophils Absolute Auto 0.2 X10*3/uL (0.0-0.4); Eosinophils Percent Auto 1.9 % (0-4); Hematocrit 35.6 % (37.0-47.0); Hemoglobin 12.3 g/dl (12.0-16.0); Imm Gran Abs Auto 0.03 X10*3/uL (0.00-0.03); Imm Gran Pct Auto 0.3 % (0.0-0.4); Lymphocytes Absolute Auto 1.5 X10*3/uL (1.2-4.9); Mean Corpuscular HGB Conc 34.6 g/dl (31.0-35.0); Mean Corpuscular Hemoglobin 31.1 pg (27.0-33.0); Mean Corpuscular Volume 89.9 fL (80.0-98.0); Mean Platelet Volume 10.6 fL (9.4-12.3); Monocytes Absolute Auto 0.6 X10*3/uL (0.1-1.2); Monocytes Percent Auto 6.3 % (2-11); Platelet Count 179 X10*3/uL (160-400); Red Blood Count 3.96 X10*6/uL (4.20-5.50); Red Cell Distribution Width 13.5 % (11.0-16.0); White Blood Count 9.4 X10*3/uL (4.8-10.8)
[2024-05-01 11:21] LABS: INTERNATIONAL NORM RATIO 0.9 (0.9-1.1); Prothrombin Time 10.2 SEC (10.9-12.4)
--- NOTE | 2024-05-01 11:34 | ECG_ITS ---
Test Reason : fall Blood Pressure : / mmHG Vent. Rate : 071 BPM Atrial Rate : 071 BPM P-R Int : 190 ms QRS Dur : 088 ms QT Int : 428 ms P-R-T Axes : 023 076 048 degrees QTc Int : 465 ms Normal sinus rhythm Low voltage QRS Borderline ECG When compared with ECG of 18-SEP-2021 09:57, Vent. rate has decreased BY 38 BPM Incomplete right bundle branch block is no longer Present Referred By: Zo Yan Electronically Signed By:JOSE MANUEL DAVIS MD
[2024-05-01 11:37] LABS: Alanine Aminotransferase 27 U/L (0-31); Albumin Level 3.5 g/dL (3.5-5.0); Alkaline Phosphatase 79 U/L (39-117); Anion Gap 10 (12-20); Aspartate Amino Transferase 34 U/L (5-31); Bilirubin Direct < 0.1 mg/dL (0.0-0.5); Bilirubin Total 0.3 mg/dL (0.0-1.0); Blood Urea Nitrogen 16 mg/dL (9-16); Calcium 8.1 mg/dL (8.4-10.2); Carbon Dioxide 20 mmol/L (22-29); Chloride 113 mmol/L (96-108); Estimated Glomerular Filt Rate > 60; Glucose Random 106 mg/dL (60-115); Magnesium 2.2 mg/dL (1.6-2.6); Potassium 4.3 mmol/L (3.3-5.1); Sodium 139 mmol/L (135-145); Total Protein 6.1 g/dL (6.5-8.0)
[2024-05-01] MEDS: HYDROmorphone HCl 1 MG/ML SYRINGE IVPUSH ×2 (11:52→12:46)
[2024-05-01 12:43] VITALS: BP 119/78; PULSE 76; RESP 20; O2SAT 95
--- NOTE | 2024-05-01 13:18 | P.CONOP_ITS ---
History of Present Illness HPI Consult date: 05/01/24 Chief complaint: FALL, R KNEE PAIN PER EMS Narrative: Patient is a 63-year-old female who presents for evaluation of right knee pain after a fall down 3-4 stairs earlier today. The patient states that she slipped down her stairs and landed onto her right knee and began to experience severe pain and inability to ambulate after her injury. Of note, the patient is status post right TKA performed at [facility] approximately 5 years ago. Patient states that she is currently still in severe pain in her right knee, despite getting several different pain medications while in the emergency department. X-rays taken in the ED reveal periprosthetic distal femur fracture of the right leg. Review of Systems 2 Review of Systems: Yes all other systems are reviewed and are negative PMFSH Past Medical History Medical History Essential hypertension Asthma Chest pain SVT (supraventricular tachycardia) Elevated blood pressure reading Impacted cerumen of both ears Cervical cancer screening Overweight (BMI 25.0-29.9) Depression Attention deficit hyperactivity disorder (ADHD) Insomnia Hirsutism Primary osteoarthritis of right knee Allergic rhinitis GERD without esophagitis Vitamin D deficiency Neuropathy Chronic obstructive pulmonary disease Mixed hyperlipidemia Family History Family History Father Medical history unknown Mother Medical history unknown Surgical History Surgical History S/P catheter ablation of slow pathway History of colonoscopy H/O rotator cuff surgery Total knee replacement status History of hand surgery H/O right knee surgery Social History Social History Housing: House Alcohol intake: former Patient Tobacco Use Status: Former Tobacco user Smoked in Last 30 Days: No e-Cigarette/Vaping Use: Former Use Advance Directives: Yes Advance Directives Information Provided: Yes Advance Directives on File: No service: No Current occupational status: disabled Gender identity: Female Cognitive needs: Yes Hearing needs: No Vision needs: No Meds Allergies Allergy/AdvReac Type Severity Reaction Status Date / Time haloperidol [From HALDOL] AdvReac Severe SEIZURES Verified 05/01/24 10:50 lisinopril AdvReac Cough Uncoded 05/01/24 10:50 Home Medications ?Medication ?Instructions ?Recorded ?Confirmed ?Last Taken ?Type dextroamphetamine-amphetamine 20 20 mg PO DAILY 09/29/21 12/04/23 Unknown History mg tablet escitalopram oxalate 10 mg tablet 10 mg PO DAILY 12/27/21 12/04/23 Unknown History quetiapine 400 mg tablet (Seroquel) 100 mg PO BEDTIME 06/01/22 12/04/23 Unknown History fluticasone propionate 110 1 puff PO BID PRN 12/26/22 12/04/23 Unknown History mcg/actuation HFA aerosol inhaler zolpidem 10 mg tablet (Ambien) 10 mg PO BEDTIME 12/26/22 12/04/23 Unknown History Physical Exam 2 Vital Signs: Vital Signs: Last Vital Signs Temp 97.5 F 05/01/24 10:48 Pulse 76 05/01/24 12:43 Resp 20 05/01/24 12:43 BP 119/78 05/01/24 12:43 Pulse Ox 95 05/01/24 12:43 O2 Del Method Room Air 05/01/24 12:43 BMI result Body Mass Index 25.1 Extrem: Other: On inspection, patient's right leg is held in flexion at both the knee in the hip and external rotation at the hip There is edema noted of the distal femur just above the knee No evidence of surrounding erythema, ecchymosis No evidence of infection Patient is able to flex and extend the digits of the left foot without difficulty Compartments soft, nontender Distal sensation intact Capillary refill brisk Results Labs 05/01/24 11:06 05/01/24 11:06 Labs: Abnormal lab results 05/01/24 Range/Units 11:06 RBC 3.96 L (4.20-5.50) X10*6/uL Hct 35.6 L (37.0-47.0) % Neut % (Auto) 75.0 H (45-73) % Lymph % (Auto) 16.0 L (20-40) % PT 10.2 L (10.9-12.4) SEC Chloride 113 H (96-108) mmol/L Carbon Dioxide 20 L (22-29) mmol/L Anion Gap 10 L (12-20) Calcium 8.1 L D (8.4-10.2) mg/dL AST 34 H (5-31) U/L Total Protein 6.1 L (6.5-8.0) g/dL H & H 05/01/24 Range/Units 11:06 Hgb 12.3 (12.0-16.0) g/dl Hct 35.6 L (37.0-47.0) % Coagulation 05/01/24 Range/Units 11:06 INR 0.9 (0.9-1.1) All other labs normal. Diagnostic results Hip x-ray: report reviewed and image reviewed Knee x-ray: report reviewed and image reviewed Assessment and Plan (1) Closed fracture of right distal femur: Status: Acute Plan 1. Periprosthetic distal femur fracture of the right knee Date of injury 05/01/2024 Patient is seen and discussed with Dr. Buck, and a collaborative treatment plan was formed: Patient will require admission to the hospital for evaluation and treatment of right distal femur fracture Patient added on for approximately 09:00 tomorrow for retrograde IM nail of right femur Recommend admission to Medicine service in light of her significant cardiac and pulmonary histories for clearance and optimization prior to surgery NPO at midnight for surgery tomorrow I educated the patient about the condition. I discussed both operative and nonoperative treatment options. The patient would like to proceed with surgery. The risks and benefits of operative treatment were discussed with the patient and the patient wishes to proceed with surgery. These risks include, but are not limited to blood clots, risk of damage to blood vessels, nerves, tendons, infection, recurrence, incomplete relief of preoperative symptoms, persistent pain, possible need for further surgery, and the risks associated with regional blocks and/or anesthesia. Plan is to take the patient to the operating room at some point in the next few weeks for the following procedures: 1. Retrograde IM nail of the right femur Procedures Date of Service Date of Service: 05/01/24
--- NOTE | 2024-05-01 14:15 | P.HPOP_ITS ---
History of Present Illness History of Present Illness Date of Service: 05/01/24 <RE Oshea - Last Filed: 05/01/24 14:29> 05/02/24 <Chriss Buck MD - Last Filed: 05/02/24 09:24> Chief complaint: R distal femur fracture <RE [place] - Last Filed: 05/01/24 14:29> Narrative: Jonathan Sterling is a 63 year old female with past medical history significant for asthma, COPD, and incomplete right bundle branch block who presents to the hospital after a fall. Patient reports that earlier this morning, she fell down approximately 3-4 stairs in her house, and began to experience significant pain, swelling, and inability to bear weight on the right lower extremity. Patient was evaluated in the emergency department, where x-rays were taken revealing a periprosthetic fracture of the right distal femur. Of note, patient is status post right TKA, the performed approximately 5 years ago at [facility] per the patient. Patient denies any numbness or tingling in the right lower extremity. No other acute complaints or concerns at this time. <RE Oshea - Last Filed: 05/01/24 14:29> [facility] Past Medical History Medical History: Medical History Essential hypertension Asthma Chest pain SVT (supraventricular tachycardia) Elevated blood pressure reading Impacted cerumen of both ears Cervical cancer screening Overweight (BMI 25.0-29.9) Depression Attention deficit hyperactivity disorder (ADHD) Insomnia Hirsutism Primary osteoarthritis of right knee Allergic rhinitis GERD without esophagitis Vitamin D deficiency Neuropathy Chronic obstructive pulmonary disease Mixed hyperlipidemia <RE Oshea - Last Filed: 05/01/24 14:29> Family History Family History: Family History Father Medical history unknown Mother Medical history unknown <RE Oshea - Last Filed: 05/01/24 14:29> Surgical History Surgical History: Surgical History S/P catheter ablation of slow pathway History of colonoscopy H/O rotator cuff surgery Total knee replacement status History of hand surgery H/O right knee surgery <RE Oshea - Last Filed: 05/01/24 14:29> Social History Social History: Social History Household Members: Spouse Housing: House Do you presently have visiting nurse or other home services: No Alcohol intake: former Patient Tobacco Use Status: Former Tobacco user e-Cigarette/Vaping Use: Former Use Advance Directives Date on File: 05/01/24 service: No Current occupational status: disabled Gender identity: Female Cognitive needs: Yes Hearing needs: No Vision needs: No <RE Oshea - Last Filed: 05/01/24 14:29> Meds Allergies/Adverse reactions: Allergies Allergy/AdvReac Type Severity Reaction Status Date / Time haloperidol [From HALDOL] AdvReac Severe SEIZURES Verified 05/01/24 10:50 oxycodone AdvReac Rash Verified 05/01/24 19:48 lisinopril AdvReac Cough Uncoded 05/01/24 10:50 <RE Oshea - Last Filed: 05/01/24 14:29> Active Medications: Current Medications Acetaminophen (Acetaminophen 325 Mg Tablet) 650 mg PO Q6H PRN PRN Reason: Pain, Mild 1-3,fever,headache Docusate Sodium (Docusate Sodium 100 Mg Capsule) 100 mg PO BID XU Hydromorphone HCl (Hydromorphone Hcl 0.5 Mg/0.5 Ml Syringe) 0.25 mg IVPUSH Q4H PRN; Protocol PRN Reason: Pain, Severe (Pain Scale 7-10) Cefazolin Sodium/Dextrose (Ancef) 2 gm in 50 mls @ 100 mls/hr IV PREOP ONE Stop: 05/02/24 05:29 Lactated Ringer's (Lr) 1,000 mls @ 100 mls/hr IVCONT .Q10H XU Melatonin (Melatonin 3 Mg Tablet) 6 mg PO BEDTIME PRN PRN Reason: Insomnia Oxycodone HCl (Oxycodone Hcl Immed Release 5 Mg Tablet) 5 mg PO Q4H PRN PRN Reason: Pain, Moderate(Pain Scale 4-6) Oxycodone HCl (Oxycodone Hcl Er 10 Mg Tab.Er.12h) 10 mg PO BID XU Sodium Chloride (0.9 % Sodium Chloride Flush 3 Ml Syringe) 3 ml IVFLUSH QSHIFT XU <RE Oshea - Last Filed: 05/01/24 14:29> Home medications: Home Medications ?Medication ?Instructions ?Recorded ?Confirmed ?Last Taken ?Type fluticasone propionate 110 1 puff PO BID PRN Shortness Of 12/26/22 05/01/24 Unknown History mcg/actuation HFA aerosol inhaler Breath Or Wheezing zolpidem 10 mg tablet (Ambien) 10 mg PO BEDTIME 12/26/22 05/01/24 04/30/24 History dextroamphetamine-amphetamine 10 20 mg PO DAILY@1200 05/01/24 05/01/24 04/30/24 History mg tablet dextroamphetamine-amphetamine 20 40 mg PO DAILY 05/01/24 05/01/24 04/30/24 History mg tablet escitalopram oxalate 20 mg tablet 20 mg PO DAILY 05/01/24 05/01/24 04/30/24 History omeprazole 20 mg capsule,delayed 20 mg PO DAILY@0630 05/01/24 05/01/24 04/30/24 History release quetiapine 400 mg tablet 400 mg PO BEDTIME 05/01/24 05/01/24 04/30/24 History <RE Oshea - Last Filed: 05/01/24 14:29> Physical Exam 2 Vital Signs: Vital Signs: Last Vital Signs Temp 97.5 F 05/01/24 10:48 Pulse 76 05/01/24 12:43 Resp 20 05/01/24 12:43 BP 119/78 05/01/24 12:43 Pulse Ox 95 05/01/24 12:43 O2 Del Method Room Air 05/01/24 12:43 BMI result Body Mass Index 25.1 <RE Oshea - Last Filed: 05/01/24 14:29> Extrem: Other: On inspection, patient's right leg is held in flexion at both the knee in the hip and external rotation at the hip There is edema noted of the distal femur just above the knee No evidence of surrounding erythema, ecchymosis No evidence of infection Patient is able to flex and extend the digits of the left foot without difficulty Compartments soft, nontender Distal sensation intact Capillary refill brisk <RE Oshea - Last Filed: 05/01/24 14:29> Results Labs Result Diagrams: 05/02/24 05:54 05/02/24 05:54 <RE Oshea - Last Filed: 05/01/24 14:29> Labs: Abnormal lab results 05/01/24 Range/Units 11:06 RBC 3.96 L (4.20-5.50) X10*6/uL Hct 35.6 L (37.0-47.0) % Neut % (Auto) 75.0 H (45-73) % Lymph % (Auto) 16.0 L (20-40) % PT 10.2 L (10.9-12.4) SEC Chloride 113 H (96-108) mmol/L Carbon Dioxide 20 L (22-29) mmol/L Anion Gap 10 L (12-20) Calcium 8.1 L D (8.4-10.2) mg/dL AST 34 H (5-31) U/L Total Protein 6.1 L (6.5-8.0) g/dL H & H 05/01/24 Range/Units 11:06 Hgb 12.3 (12.0-16.0) g/dl Hct 35.6 L (37.0-47.0) % Coagulation 05/01/24 Range/Units 11:06 INR 0.9 (0.9-1.1) All other labs normal. <RE Oshea - Last Filed: 05/01/24 14:29> Diagnostic results Hip x-ray: report reviewed and image reviewed <RE Oshea - Last Filed: 05/01/24 14:29> Hip CT: report reviewed and image reviewed <RE Oshea - Last Filed: 05/01/24 14:29> Knee x-ray: report reviewed and image reviewed <RE Oshea - Last Filed: 05/01/24 14:29> Assessment and Plan (1) Closed fracture of right distal femur: Status: Acute <RE Oshea - Last Filed: 05/01/24 14:29> 1. Periprosthetic distal femur fracture of the right knee Date of injury 05/01/2024 Patient is seen and discussed with Dr. Buck, and a collaborative treatment plan was formed: Patient was initially apprehensive for any overnight stay in the hospital, but after long discussion with myself and Dr. Buck, patient is amenable to admission to the hospital for evaluation and operative treatment of right distal femur fracture Patient added on for approximately 09:00 tomorrow for retrograde IM nail of right femur Admitted to orthopedic service, hospitalists consulted for ongoing medical management and preoperative clearance Preoperative labs and EKG ordered, type and screen ordered in ED I educated the patient about the condition. I discussed both operative and nonoperative treatment options. The patient would like to proceed with surgery. The risks and benefits of operative treatment were discussed with the patient and the patient wishes to proceed with surgery. These risks include, but are not limited to blood clots, risk of damage to blood vessels, nerves, tendons, infection, recurrence, incomplete relief of preoperative symptoms, persistent pain, possible need for further surgery, and the risks associated with regional blocks and/or anesthesia. Plan is to take the patient to the operating room tomorrow, 05/02/2024 for the following procedures with Dr. Buck: 1. Retrograde IM nail of the right femur <RE Oshea - Last Filed: 05/01/24 14:29> Quality Stroke Does the patient have a stroke diagnosis?: No <RE Oshea - Last Filed: 05/01/24 14:29> VTE Prior VTE?: No <RE Oshea - Last Filed: 05/01/24 14:29> VTE Risk Level:: Surgical - high <RE Oshea - Last Filed: 05/01/24 14:29> VTE Device Contraindication: N/A - Device Ordered <RE Oshea - Last Filed: 05/01/24 14:29> VTE Drug Contraindication: Treatment Not Indicated <RE Oshea - Last Filed: 05/01/24 14:29> Procedures Date of Service Date of Service: 05/01/24 <RE Oshea - Last Filed: 05/01/24 14:29> 05/02/24 <Chriss Buck MD - Last Filed: 05/02/24 09:24>
[2024-05-01 14:27] VITALS: BP 109/72; PULSE 74; RESP 20
[2024-05-01] MEDS: HYDROmorphone HCl 0.5 MG/0.5 ML SYRINGE 0.25 MG IVPUSH ×3 (14:29→22:38)
[2024-05-01] MEDS: Lactated Ringers 1,000 ML 100 ML IVCONT (14:32)
--- NOTE | 2024-05-01 16:19 | PHA.MEDREC ---
Addendum entered by Karl Leonard RPh 05/01/24 16:41: Reviewed by [facility]. Original Note: Pharmacy Consult ? Medication Reconciliation Pharmacy has completed the medication reconciliation. Spoke to patient to confirm med list. Patient states she is no longer taking Azithromycin 250 mg, Losartan 100 mg (last filled 01/05/24 for 90 days) and Prednisone 10 mg. Patient states she only takes Quetiapine 400 mg however she should be taking 800 mg at bedtime. Patient says she is on Flovent 110 mcg, however there in no claims.
--- NOTE | 2024-05-01 16:29 | P.CONIM_ITS ---
History of Present Illness Data of Consult Service Date: 05/01/24 Primary Care Provider: Maico Pierce MD HPI Reason for consult: preop eval 63F PMH HTN, SVT, ADHD, insomnia, osteoarthritis status post right TKA, COPD/mild intermittent asthma, presented with mechanical fall and right knee. Patient reports that she fell down through 2 for status and her house fell on right side and had severe pain. X-ray showed periprosthetic fracture of the right distal femur. Patient reports being fairly active at baseline. Goes dancing 4 times a week without any chest pain no shortness a breath. Review of Systems 2 Review of Systems: Yes all other systems are reviewed and are negative [facility] Medical History Essential hypertension Asthma Chest pain SVT (supraventricular tachycardia) Elevated blood pressure reading Impacted cerumen of both ears Cervical cancer screening Overweight (BMI 25.0-29.9) Depression Attention deficit hyperactivity disorder (ADHD) Insomnia Hirsutism Primary osteoarthritis of right knee Allergic rhinitis GERD without esophagitis Vitamin D deficiency Neuropathy Chronic obstructive pulmonary disease Mixed hyperlipidemia Family History Father Medical history unknown Mother Medical history unknown Surgical History S/P catheter ablation of slow pathway History of colonoscopy H/O rotator cuff surgery Total knee replacement status History of hand surgery H/O right knee surgery Social History Housing: House Alcohol intake: former Patient Tobacco Use Status: Former Tobacco user Smoked in Last 30 Days: No e-Cigarette/Vaping Use: Former Use Advance Directives: Yes Advance Directives Information Provided: Yes Advance Directives on File: No service: No Current occupational status: disabled Gender identity: Female Cognitive needs: Yes Hearing needs: No Vision needs: No Meds Allergies Allergy/AdvReac Type Severity Reaction Status Date / Time haloperidol [From HALDOL] AdvReac Severe SEIZURES Verified 05/01/24 10:50 lisinopril AdvReac Cough Uncoded 05/01/24 10:50 Active Medications: Current Medications Acetaminophen (Acetaminophen 325 Mg Tablet) 650 mg PO Q6H PRN PRN Reason: Pain, Mild 1-3,fever,headache Albuterol/Ipratropium (Albuterol/Iprat 2.5/0.5mg 3 Ml Ampul.Neb) 3 ml INHALE Q6-8H PRN PRN Reason: shortness of breath or wheezing Amphetamine/Dextroamphetamine (Amphetamine Mixed Salts 10 Mg Tablet) 20 mg PO DAILY@1200 XU Amphetamine/Dextroamphetamine (Amphetamine Mixed Salts 20 Mg Tablet) 40 mg PO DAILY [facility] Ascorbic Acid (Ascorbic Acid 500 Mg Tablet) 500 mg PO DAILY [facility] Atorvastatin Calcium (Atorvastatin Calcium 10 Mg Tablet) 10 mg PO DAILY [facility] Docusate Sodium (Docusate Sodium 100 Mg Capsule) 100 mg PO BID [facility] Escitalopram Oxalate (Escitalopram Oxalate 20 Mg Tablet) 20 mg PO DAILY [facility] Hydromorphone HCl (Hydromorphone Hcl 0.5 Mg/0.5 Ml Syringe) 0.25 mg IVPUSH Q4H PRN; Protocol PRN Reason: Pain, Severe (Pain Scale 7-10) Last Admin: 05/01/24 14:29 Dose: 0.25 mg Cefazolin Sodium/Dextrose (Ancef) 2 gm in 50 mls @ 100 mls/hr IV PREOP ONE Stop: 05/02/24 05:29 Lactated Ringer's (Lr) 1,000 mls @ 100 mls/hr IVCONT .Q10H [facility] Last Admin: 05/01/24 14:32 Dose: 100 mls/hr Loratadine (Loratadine 10 Mg Tablet) 10 mg PO DAILY PRN PRN Reason: allergy symptoms Melatonin (Melatonin 3 Mg Tablet) 6 mg PO BEDTIME PRN PRN Reason: Insomnia Non-Formulary Medication (Fluticasone Propionate) 1 puff PO BID PRN PRN Reason: Shortness Of Breath Or Wheezing Omeprazole (Omeprazole 20 Mg Capsule.Dr) 20 mg PO DAILY@0630 [facility] Oxycodone HCl (Oxycodone Hcl Immed Release 5 Mg Tablet) 5 mg PO Q4H PRN PRN Reason: Pain, Moderate(Pain Scale 4-6) Oxycodone HCl (Oxycodone Hcl Er 10 Mg Tab.Er.12h) 10 mg PO BID [facility] Quetiapine Fumarate (Quetiapine Fumarate 400 Mg Tablet) 400 mg PO BEDTIME [facility] Sodium Chloride (0.9 % Sodium Chloride Flush 3 Ml Syringe) 3 ml IVFLUSH QSHIFT [facility] Last Admin: 05/01/24 15:49 Dose: Not Given Zolpidem Tartrate (Zolpidem Tartrate 5 Mg Tablet) 10 mg PO BEDTIME [facility] Home Medications ?Medication ?Instructions ?Recorded ?Confirmed ?Last Taken ?Type fluticasone propionate 110 1 puff PO BID PRN Shortness Of 12/26/22 05/01/24 Unknown History mcg/actuation HFA aerosol inhaler Breath Or Wheezing zolpidem 10 mg tablet (Ambien) 10 mg PO BEDTIME 12/26/22 05/01/24 04/30/24 History dextroamphetamine-amphetamine 10 20 mg PO DAILY@1200 05/01/24 05/01/24 04/30/24 History mg tablet dextroamphetamine-amphetamine 20 40 mg PO DAILY 05/01/24 05/01/24 04/30/24 History mg tablet escitalopram oxalate 20 mg tablet 20 mg PO DAILY 05/01/24 05/01/24 04/30/24 History omeprazole 20 mg capsule,delayed 20 mg PO DAILY@0630 05/01/24 05/01/24 04/30/24 History release quetiapine 400 mg tablet 400 mg PO BEDTIME 05/01/24 05/01/24 04/30/24 History Physical Exam 2 Vital Signs and Narrative: Vital Signs: Last Vital Signs Temp 97.5 F 05/01/24 10:48 Pulse 74 05/01/24 14:27 Resp 20 05/01/24 14:27 BP 109/72 05/01/24 14:27 Pulse Ox 95 05/01/24 12:43 O2 Del Method Room Air 05/01/24 12:43 BMI result Body Mass Index 25.1 General: AO X 3, in pain Resp: CTA bilateral, no accessory muscles used CVS: S1,S2,RRR GI: soft, non tender, non distended Neuro: motor grossly intact, alert Psych: appropriate affect, appropriate insight right knee swelling Results Labs 05/01/24 11:06 05/01/24 11:06 Labs: Laboratory Results - last 24 hr 05/01/24 05/01/24 11:06 13:16 MCV 89.9 MCH 31.1 MCHC 34.6 RDW 13.5 Plt Count 179 MPV 10.6 Immature Gran % (Auto) 0.3 Neut % (Auto) 75.0 H Lymph % (Auto) 16.0 L Avery % (Auto) 6.3 Eos % (Auto) 1.9 Baso % (Auto) 0.5 Lymph # (Auto) 1.5 Avery # (Auto) 0.6 Eos # (Auto) 0.2 Baso # (Auto) 0.1 Abs Immat Gran (auto) 0.03 Absolute Neuts (auto) 7.0 Absolute Nucleated RBC 0.000 Nucleated RBC % (auto) 0.0 PT 10.2 L INR 0.9 Anion Gap 10 L Estim Creat Clear Calc 70.0 Estimated GFR > 60 Random Glucose 106 Calcium 8.1 L D Magnesium 2.2 Total Bilirubin 0.3 Direct Bilirubin < 0.1 AST 34 H ALT 27 Alkaline Phosphatase 79 Total Protein 6.1 L Albumin 3.5 Blood Type O Negative Antibody Screen NEGATIVE Imaging Radiologist's Impressions: Impressions Knee X-Ray 05/01/24 10:54 IMPRESSION: Total right knee prosthesis alignment. There is a right supracondylar displaced fracture with mild joint effusion. Unremarkable AP pelvis and right hip exam. Electronically signed by: Ron Dickerson MD 05/01/2024 02:37 PM EST RP Hip X-Ray 05/01/24 11:15 IMPRESSION: Total right knee prosthesis alignment. There is a right supracondylar displaced fracture with mild joint effusion. Unremarkable AP pelvis and right hip exam. Electronically signed by: Ron Dickerson MD 05/01/2024 02:37 PM EST RP Chest X-Ray 05/01/24 11:30 IMPRESSION: Unremarkable chest examination. Electronically signed by: Ron Dickerson MD 05/01/2024 02:34 PM EST RP Assessment and Plan (1) Attention deficit hyperactivity disorder (ADHD): Qualifiers: Attention deficit-hyperactivity disorder type: unspecified Qualified Code(s): F90.9 - Attention-deficit hyperactivity disorder, unspecified type Status: Acute Plan 63F PMH HTN, SVT, ADHD, insomnia, osteoarthritis status post right TKA, COPD/ mild intermittent asthma, presented with mechanical fall and right knee Right distal femur fracture Patient low risk for moderate risk procedure would pursue as planned COPD/mild intermittent Stable, DuoNebs as Hypertension, history of SVT Borderline blood pressure, will hold off on diltiazem adhd Continue dextroamphetamine Insomnia seroquel
[2024-05-01 18:24] VITALS: BP 120/76; PULSE 77; RESP 20; O2SAT 95
[2024-05-01 19:41] VITALS: BP 120/76; PULSE 74; RESP 18; TEMP 36.7
--- NOTE | 2024-05-01 19:44 | PC.NURSE ---
pt pain to her right lower extremity 12/06. pt is going to be transfered to [facility] soon.
--- NOTE | 2024-05-01 19:45 | PC.NURSE ---
pt states she cant take oxycodone due to rash.
--- NOTE | 2024-05-01 20:43 | PC.NURSE ---
Admitted to [facility]. Cesar manuel in Overflow 3 for approximately 10 minutes. Transported via hospital bed.
[2024-05-01 20:53] VITALS: BP 122/57; PULSE 86; RESP 18; TEMP 36.4; O2SAT 93
[2024-05-01 21:38] VITALS: BMI 25.1
[2024-05-01] MEDS: Docusate Sodium 100 MG CAPSULE PO (21:39)
[2024-05-01] MEDS: Zolpidem Tartrate 5 MG TABLET PO (21:39)
[2024-05-01] MEDS: QUEtiapine Fumarate 100 MG TABLET PO (22:37)
[2024-05-02] VITALS (11 sets, daily range): BP systolic 106–128; BP diastolic 55–82; PULSE 70–101; RESP 14–18; TEMP 36.1–36.8; O2SAT 91–100
[2024-05-02] MEDS: Lactated Ringers 1,000 ML 100 ML IVCONT ×2 (00:14→13:09)
[2024-05-02] MEDS: HYDROmorphone HCl 0.5 MG/0.5 ML SYRINGE 0.25 MG IVPUSH ×3 (03:31→15:14)
[2024-05-02 06:44] LABS: MANUAL DIFF FLAG NO
[2024-05-02 06:56] LABS: Basophils Percent Auto 0.4 % (0-2); Eosinophils Absolute Auto 0.2 X10*3/uL (0.0-0.4); Eosinophils Percent Auto 2.8 % (0-4); Hematocrit 30.3 % (37.0-47.0); Hemoglobin 10.7 g/dl (12.0-16.0); Imm Gran Abs Auto 0.02 X10*3/uL (0.00-0.03); Imm Gran Pct Auto 0.3 % (0.0-0.4); Lymphocytes Absolute Auto 1.8 X10*3/uL (1.2-4.9); Lymphocytes Percent Auto 22.1 % (20-40); Mean Corpuscular HGB Conc 35.3 g/dl (31.0-35.0); Mean Corpuscular Hemoglobin 31.4 pg (27.0-33.0); Mean Corpuscular Volume 88.9 fL (80.0-98.0); Monocytes Absolute Auto 0.8 X10*3/uL (0.1-1.2); Monocytes Percent Auto 9.6 % (2-11); Neutrophils Absolute Auto 5.2 x10*3/uL (2.0-8.3); Neutrophils Percent Auto 64.8 % (45-73); Platelet Count 173 X10*3/uL (160-400); Red Blood Count 3.41 X10*6/uL (4.20-5.50); Red Cell Distribution Width 13.7 % (11.0-16.0); White Blood Count 7.9 X10*3/uL (4.8-10.8)
[2024-05-02 06:59] LABS: Anion Gap 10 (12-20); Blood Urea Nitrogen 14 mg/dL (9-16); Calcium 8.9 mg/dL (8.4-10.2); Carbon Dioxide 26 mmol/L (22-29); Chloride 109 mmol/L (96-108); Estimated Glomerular Filt Rate > 60; Glucose Fasting 107 mg/dL (60-99); Sodium 141 mmol/L (135-145)
[2024-05-02] MEDS: Escitalopram Oxalate 20 MG TABLET PO (08:05)
[2024-05-02] MEDS: Ascorbic Acid 500 MG TABLET PO (08:05)
[2024-05-02] MEDS: Atorvastatin Calcium 10 MG TABLET PO (08:05)
[2024-05-02] MEDS: Docusate Sodium 100 MG CAPSULE PO (08:06)
--- NOTE | 2024-05-02 09:19 | HO.ANESPROP2 ---
[facility] Active Problems Active Problems: All Active Problems (Updated 05/01/24 @ 13:26 by RE Oshea) Closed fracture of right distal femur (Acute) Femoral distal fracture (Acute) Essential hypertension (Acute) Asthma exacerbation (Acute) Asthma (Acute) Chest pain (Acute) Breast cancer screening (Acute) Cervical cancer screening (Acute) Exertional chest pain (Acute) Shortness of breath (Acute) PAC (premature atrial contraction) (Acute) Abnormal stress ECG with treadmill (Acute) Non-sustained ventricular tachycardia (Acute) SVT (supraventricular tachycardia) (Acute) Osteopenia (Acute) Skin lesion (Acute) Adult general medical exam (Acute) Post-menopausal (Acute) Incomplete RBBB (Acute) Chest tightness (Acute) Hypertension (Acute) Impacted cerumen of both ears (Acute) Well woman exam with routine gynecological exam (Acute) Overweight (BMI 25.0-29.9) (Acute) Depression (Acute) Attention deficit hyperactivity disorder (ADHD) (Acute) Insomnia (Acute) Hirsutism (Acute) Primary osteoarthritis of right knee (Acute) Allergic rhinitis (Acute) GERD without esophagitis (Acute) Vitamin D deficiency (Acute) Neuropathy (Acute) Chronic obstructive pulmonary disease (Acute) Mixed hyperlipidemia (Acute) Past Medical History Medical History Essential hypertension Asthma Chest pain SVT (supraventricular tachycardia) Elevated blood pressure reading Impacted cerumen of both ears Cervical cancer screening Overweight (BMI 25.0-29.9) Depression Attention deficit hyperactivity disorder (ADHD) Insomnia Hirsutism Primary osteoarthritis of right knee Allergic rhinitis GERD without esophagitis Vitamin D deficiency Neuropathy Chronic obstructive pulmonary disease Mixed hyperlipidemia Family History Family History Father Medical history unknown Mother Medical history unknown Family history of problems with anesthesia: No Surgical History Surgical History S/P catheter ablation of slow pathway History of colonoscopy H/O rotator cuff surgery Total knee replacement status History of hand surgery H/O right knee surgery History of Problems with Anesthesia: No Social History Social History Household Members: Spouse Housing: House Do you presently have visiting nurse or other home services: No Alcohol intake: former Patient Tobacco Use Status: Former Tobacco user e-Cigarette/Vaping Use: Former Use Advance Directives Date on File: 05/01/24 service: No Current occupational status: disabled Gender identity: Female Cognitive needs: Yes Hearing needs: No Vision needs: No Meds Allergies Allergy/AdvReac Type Severity Reaction Status Date / Time haloperidol [From HALDOL] AdvReac Severe SEIZURES Verified 05/01/24 10:50 oxycodone AdvReac Rash Verified 05/01/24 19:48 lisinopril AdvReac Cough Uncoded 05/01/24 10:50 Active Medications: Current Medications Acetaminophen (Acetaminophen 325 Mg Tablet) 650 mg PO Q6H PRN PRN Reason: Pain, Mild 1-3,fever,headache Albuterol/Ipratropium (Albuterol/Iprat 2.5/0.5mg 3 Ml Ampul.Neb) 3 ml INHALE Q6H PRN PRN Reason: shortness of breath or wheezing Amphetamine/Dextroamphetamine (Amphetamine Mixed Salts 20 Mg Tablet) 20 mg PO DAILY@1200 XU Amphetamine/Dextroamphetamine (Amphetamine Mixed Salts 20 Mg Tablet) 40 mg PO DAILY COUNTS INCLUDE 234 BEDS AT THE [facility] Ascorbic Acid (Ascorbic Acid 500 Mg Tablet) 500 mg PO DAILY COUNTS INCLUDE 234 BEDS AT THE [facility] Last Admin: 05/02/24 08:05 Dose: 500 mg Atorvastatin Calcium (Atorvastatin Calcium 10 Mg Tablet) 10 mg PO DAILY COUNTS INCLUDE 234 BEDS AT THE [facility] Last Admin: 05/02/24 08:05 Dose: 10 mg Docusate Sodium (Docusate Sodium 100 Mg Capsule) 100 mg PO BID COUNTS INCLUDE 234 BEDS AT THE [facility] Last Admin: 05/02/24 08:06 Dose: 100 mg Escitalopram Oxalate (Escitalopram Oxalate 20 Mg Tablet) 20 mg PO DAILY COUNTS INCLUDE 234 BEDS AT THE [facility] Last Admin: 05/02/24 08:05 Dose: 20 mg Fluticasone Propionate (Fluticasone Propionate 100 Mcg Blst.W.Dev) 1 puff INHALE RBID PRN PRN Reason: Shortness Of Breath Or Wheezing Hydromorphone HCl (Hydromorphone Hcl 0.5 Mg/0.5 Ml Syringe) 0.25 mg IVPUSH Q4H PRN; Protocol PRN Reason: Pain, Severe (Pain Scale 7-10) Last Admin: 05/02/24 08:05 Dose: 0.25 mg Lactated Ringer's (Lr) 1,000 mls @ 100 mls/hr IVCONT .Q10H COUNTS INCLUDE 234 BEDS AT THE [facility] Last Admin: 05/02/24 00:14 Dose: 100 mls/hr Loratadine (Loratadine 10 Mg Tablet) 10 mg PO DAILY PRN PRN Reason: allergy symptoms Melatonin (Melatonin 3 Mg Tablet) 6 mg PO BEDTIME PRN PRN Reason: Insomnia Omeprazole (Omeprazole 20 Mg Capsule.) 20 mg PO DAILY@0630 COUNTS INCLUDE 234 BEDS AT THE [facility] Last Admin: 05/02/24 05:40 Dose: Not Given Quetiapine Fumarate (Quetiapine Fumarate 100 Mg Tablet) 100 mg PO BEDTIME COUNTS INCLUDE 234 BEDS AT THE [facility] Last Admin: 05/01/24 22:37 Dose: 100 mg Sodium Chloride (0.9 % Sodium Chloride Flush 3 Ml Syringe) 3 ml IVFLUSH QSHIFT COUNTS INCLUDE 234 BEDS AT THE [facility] Last Admin: 05/02/24 08:13 Dose: Not Given Zolpidem Tartrate (Zolpidem Tartrate 5 Mg Tablet) 5 mg PO BEDTIME COUNTS INCLUDE 234 BEDS AT THE [facility] Last Admin: 05/01/24 21:39 Dose: 5 mg Home Medications ?Medication ?Instructions ?Recorded ?Confirmed ?Last Taken ?Type fluticasone propionate 110 1 puff PO BID PRN Shortness Of 12/26/22 05/01/24 Unknown History mcg/actuation HFA aerosol inhaler Breath Or Wheezing zolpidem 10 mg tablet (Ambien) 10 mg PO BEDTIME 12/26/22 05/01/24 04/30/24 History dextroamphetamine-amphetamine 10 20 mg PO DAILY@1200 05/01/24 05/01/24 04/30/24 History mg tablet dextroamphetamine-amphetamine 20 40 mg PO DAILY 05/01/24 05/01/24 04/30/24 History mg tablet escitalopram oxalate 20 mg tablet 20 mg PO DAILY 05/01/24 05/01/24 04/30/24 History omeprazole 20 mg capsule,delayed 20 mg PO DAILY@0630 05/01/24 05/01/24 04/30/24 History release quetiapine 400 mg tablet 400 mg PO BEDTIME 05/01/24 05/01/24 04/30/24 History Exam Height,Weight and Vital Signs: Height 5 ft 7 in Weight 72.57 kg Last Vital Signs Temp 97.9 F 05/02/24 07:13 Pulse 86 05/02/24 07:13 Resp 16 05/02/24 07:13 BP 120/71 05/02/24 07:13 Pulse Ox 94 05/02/24 07:13 O2 Del Method Room Air 05/02/24 07:13 Pertinent Lab Results Pertinent Lab Results: Laboratory Tests 05/01/24 05/01/24 05/02/24 11:06 13:16 05:54 WBC 9.4 7.9 RBC 3.96 L 3.41 L Hgb 12.3 10.7 L Hct 35.6 L 30.3 L MCV 89.9 88.9 MCH 31.1 31.4 MCHC 34.6 35.3 H RDW 13.5 13.7 Plt Count 179 173 MPV 10.6 11.0 Immature Gran % (Auto) 0.3 0.3 Neut % (Auto) 75.0 H 64.8 Lymph % (Auto) 16.0 L 22.1 [place] % (Auto) 6.3 9.6 Eos % (Auto) 1.9 2.8 Baso % (Auto) 0.5 0.4 Lymph # (Auto) 1.5 1.8 [place] # (Auto) 0.6 0.8 Eos # (Auto) 0.2 0.2 Baso # (Auto) 0.1 0.0 Abs Immat Gran (auto) 0.03 0.02 Absolute Neuts (auto) 7.0 5.2 Absolute Nucleated RBC 0.000 0.000 Nucleated RBC % (auto) 0.0 0.0 PT 10.2 L INR 0.9 Sodium 139 141 Potassium 4.3 4.0 Chloride 113 H 109 H Carbon Dioxide 20 L 26 Anion Gap 10 L 10 L BUN 16 14 Creatinine 0.79 0.79 Estim Creat Clear Calc 70.0 70.0 Estimated GFR > 60 > 60 Random Glucose 106 Fasting Glucose 107 H Calcium 8.1 L D 8.9 D Magnesium 2.2 Total Bilirubin 0.3 Direct Bilirubin < 0.1 AST 34 H ALT 27 Alkaline Phosphatase 79 Total Protein 6.1 L Albumin 3.5 Blood Type O Negative Antibody Screen NEGATIVE Airway Mallampati Class: II TM Dist: >3cm Neck ROM: Full Denture: Upper and Lower Assessment and Plan Assessment Anesthesia Assessment: Anesthesia Plan Discussed and Chart Reviewed Final Anesthetic Review Family History of Problems with Anesthesia: No History of Problems with Anesthesia: No NPO: Yes ASA Class: III and Emergency Final Preanesthetic Review: No Changes in Pt Med Stat, Meds/Allgs Chart Reviewed, Consent Obtained/Reviewed, Anes Risks/Benef Reviewed and DNR Form (If Appl.) Patient Risk: Intermediate Procedure Risk: Intermediate Anesthetic Plan Anesthetic Plan: GA Disposition: Standard PACU
[2024-05-02] MEDS: ceFAZolin Sodium/Dextrose,Iso 2 GM/50 ML PIGGYBACK IV ×2 (09:20→14:58)
--- NOTE | 2024-05-02 09:24 | MHC.SHP ---
Pre-Procedural Eval Section A - 24 Hr Update-Section A only Date of Service: 05/02/24 The patient is an INPATIENT: No Changes since office visit: No Cold of Flu in the past 2 weeks, No New Medical Problems, No Changes in Medication and No Patient answered all questions The patient has been examined within 24 hours of the surgical procedure. The History & Physical has been completed within 30 days and I have reviewed it.: Yes Section B - Complete if H&P > 30 days Chief Complaint: R distal femur fracture Allergies: Allergies Allergy/AdvReac Type Severity Reaction Status Date / Time haloperidol [From HALDOL] AdvReac Severe SEIZURES Verified 05/01/24 10:50 oxycodone AdvReac Rash Verified 05/01/24 19:48 lisinopril AdvReac Cough Uncoded 05/01/24 10:50 Plan I have reviewed the history and physical and performed a pertinent physical examination on my patient. No changes have occurred unless specified. Time Spent With Patient Time: Total time managing care of this patient today ____ minutes.
--- NOTE | 2024-05-02 11:17 | P.BOP_ITS ---
Brief Operative Note Date of Service: 05/02/24 Pre-op diagnosis: Right distal femur periprosthetic fracture Post-op diagnosis: same Procedure: ORIF right distal femur Implants: Harrison [id number] retrograde IMN with 4 distal and 2 proximal interlocking screws Surgeon: Chriss Buck MD Anesthesia: GETA Was an Safety Deposit Boxes Custodian used for this Procedure?: Yes Safety Deposit Boxes Custodian: Forrest Faith Estimated blood loss (mL): 200 IV fluids (mL): 1,000 Pathology: none sent Condition: stable Disposition: PACU
[2024-05-02] MEDS: fentaNYL citrate/PF 100 MCG/2 ML VIAL 50 MCG IVPUSH (11:51)
--- NOTE | 2024-05-02 12:22 | PC.NURSE ---
back up from OR at this time. Alert, appropriate, call gonzalez at bedside, in the room. Dressing CDI. +PP
[2024-05-02] MEDS: Amphetamine Mixed Salts 20 MG TABLET PO (13:09)
--- NOTE | 2024-05-02 13:52 | MHC.CM.PN ---
Addendum entered by Carmen Gunn RN 05/02/24 14:39: PT rec home w/ services. Patient prefers [facility] who has accepted. Will dc on lovenox and RN will provide teach prior to dc. Patient requesting dc today. Ortho PA aware and agreeable to plan. will provide transport. RN aware. Original Note: [facility] delivered. Patient lives at home w/ and cats. Functionally independent DIRECTOR GRAPHICS. Has a nebulizer. PCP Maico Pierce MD Reports she has an HCP naming her [facility] as [facility]. Copy requested. DP: Goal is home w/ services. PT eval pending. will transport. CM will continue to follow.
--- NOTE | 2024-05-02 15:01 | P.F2F_ITS ---
Service Date Service Date: 05/02/24 Encounter Date of encounter: 05/02/24 Reasons for Services Signs and symptoms assessed: R distal femur fx status post retrograde IMN Homebound: Leaving the home is medically contraindicated at this time without the asist of a device and/or another person due th the listed conditions above and below. Reason homebound: unsteady gait / fall risk, leg weakness, pain with ambulation and unable to drive Certification: Based on the above findings, I certify that this patient is confined to the home and needs intermittent senior care care, physical therapy and/or speech therapy. The patient is under my care, and I have initiated the establishment of the plan of care. The patient will be followed by a physician who will periodically review the plan of care. Time Spent With Patient Time: Total time managing care of this patient today ____ minutes.
--- NOTE | 2024-05-02 15:03 | PM.DS ---
DS: Providers Provider Date of Service: 05/02/24 Date of admission: 05/01/24 14:12 Primary care physician: Maico Pierce MD Consults: 05/01/24 14:04 Consult to Hospitalist Stat Comment: Consulting Provider[place] [facility] Reason For Exam: Medical management, preop clearance for tomorrow DS: Diagnosis Discharge Diagnosis (1) Closed fracture of right distal femur: Status: Acute DS: Summary Hospital Course Hospital Course: The patient underwent a successful right femur retrograde intramedullary nail placement on, was transferred to PACU and then to the floor to recover. During their stay, their vitals were stable, afebrile at 97.0. Labs were unremarkable, H/H 10.7/30.3. POD 1 she will be started on Lovenox 40mg for DVT ppx, they also received Physical Therapy services twice a day. Physical therapy should include gait training, ROM to tolerance and quad strength. He is WBAT. Prior to discharge, her dressing was changed, incision clean dry and intact. Dressing should remain intact and dry at all times. Any concerns with the dressing, please contact orthopedic office. No showering. The plan is to be discharged Status at Discharge Cognitive/behavioral status at discharge: Stable for discharge Time Attestation Discharge Coordination Time (in mins): 30 Quality: Safe Use of Opioids Does Pt have an Active Cancer Diagnosis on the Problem List?: No Quality: Stroke Does the patient have a stroke diagnosis?: No Physical Exam Vital Signs: Vital Signs: Last Vital Signs Temp 97.0 F 05/02/24 12:22 Pulse 71 05/02/24 12:22 Resp 16 05/02/24 12:22 BP 118/76 05/02/24 12:22 Pulse Ox 97 05/02/24 12:22 O2 Del Method Nasal Cannula 05/02/24 12:22 O2 Flow Rate 3 05/02/24 12:09 BMI result Body Mass Index 25.1 Extrem: Other: Dressings on right knee and leg clean, dry, intact No evidence of surrounding erythema, ecchymosis No evidence of infection Patient is able to flex and extend the digits of the left foot without difficulty Compartments soft, nontender Distal sensation intact Capillary refill brisk DS: Data Data Completed and Pending Labs on day of discharge: Laboratory Results - last 24 hr 05/02/24 05:54 WBC 7.9 RBC 3.41 L Hgb 10.7 L Hct 30.3 L MCV 88.9 MCH 31.4 MCHC 35.3 H RDW 13.7 Plt Count 173 MPV 11.0 Immature Gran % (Auto) 0.3 Neut % (Auto) 64.8 Lymph % (Auto) 22.1 [place] % (Auto) 9.6 Eos % (Auto) 2.8 Baso % (Auto) 0.4 Lymph # (Auto) 1.8 [place] # (Auto) 0.8 Eos # (Auto) 0.2 Baso # (Auto) 0.0 Abs Immat Gran (auto) 0.02 Absolute Neuts (auto) 5.2 Absolute Nucleated RBC 0.000 Nucleated RBC % (auto) 0.0 Sodium 141 Potassium 4.0 Chloride 109 H Carbon Dioxide 26 Anion Gap 10 L BUN 14 Creatinine 0.79 Estim Creat Clear Calc 70.0 Estimated GFR > 60 Fasting Glucose 107 H Calcium 8.9 D Discharge Plan Discharge Anticipated Discharge Date/Time: 05/02/24 17:00 Patient Disposition: Home Health Service Discharge Diagnosis: Status post R retrograde IMN Referrals: [facility] [Outside] - 3-5 Days ([facility] will call you to schedule home PT appointments) Maico Pierce MD [Primary Care Provider] - 1 Week Trisha White PA-C [Physician Morning Caregiver] - 2 Weeks Discharge Medications: New enoxaparin 40 mg/0.4 mL Syringe 40 mg subcut Q24H 42 Days Qty: 16.8 0RF celecoxib 200 mg Capsule 200 mg PO BID 30 Days Qty: 60 0RF acetaminophen 325 mg Tablet 650 mg PO Q6H PRN (Reason: Pain, Mild 1-3,Fever,Headache) 30 Days Qty: 240 0RF docusate sodium 100 mg Capsule 100 mg PO BID 30 Days Qty: 60 0RF (PACO) estrella Cunningham See Rx Instructions .Route Qty: 1 0RF Rx Instructions: As directed tramadol 50 mg tablet 50 mg PO Q4H PRN (Reason: pain) 7 Days Qty: 42 0RF Continued diltiazem HCl 240 mg tablet extended release 24 hr 240 mg PO DAILY Qty: 30 6RF calcium carbonate [Oyster Shell Calcium] 500 mg calcium (1,250 mg) tablet 500 mg PO DAILY 90 Days Qty: 90 2RF albuterol sulfate 2.5 mg /3 mL (0.083 %) solution for nebulization 2.5 mg inhalation QID PRN (Reason: shortness of breath or wheezing) 30 Days Qty: 360 0RF albuterol sulfate 90 mcg/actuation HFA aerosol inhaler 2 puff PO QID PRN (Reason: shortness of breath or wheezing) Qty: 8.5 5RF atorvastatin 10 mg tablet 10 mg PO DAILY 90 Days Qty: 90 1RF ascorbic acid (vitamin C) 500 mg tablet 500 mg PO DAILY 90 Days Qty: 90 1RF hydrochlorothiazide 12.5 mg tablet 12.5 mg PO DAILY 30 Days Qty: 30 1RF dextroamphetamine-amphetamine 10 mg tablet 20 mg PO DAILY@1200 dextroamphetamine-amphetamine 20 mg tablet 40 mg PO DAILY escitalopram oxalate 20 mg tablet 20 mg PO DAILY quetiapine 400 mg tablet 400 mg PO BEDTIME omeprazole 20 mg capsule,delayed release(DR/EC) 20 mg PO DAILY@0630 ipratropium-albuterol 0.5 mg-3 mg(2.5 mg base)/3 mL solution for nebulization 3 ml inhalation Q6-8H PRN (Reason: shortness of breath or wheezing) 30 Days Qty: 180 3RF (DME) nebulizers Mis See Rx Instructions .ROUTE .MEDSUPPLY Qty: 1 0RF Rx Instructions: As directed fluticasone propionate 110 mcg/actuation HFA aerosol inhaler 1 puff PO BID PRN (Reason: Shortness Of Breath Or Wheezing) cholecalciferol (vitamin D3) 125 mcg (5,000 unit) capsule 125 mcg PO DAILY 90 Days Qty: 90 3RF epinephrine [EpiPen 2-Nico] 0.3 mg/0.3 mL auto-injector 0.3 mg IM Q30M PRN (Reason: anaphylaxis) Qty: 2 0RF Rx Instructions: do not exceed 12 doses per 24 hrs loratadine 10 mg tablet 10 mg PO DAILY PRN (Reason: allergy symptoms) 90 Days Qty: 90 3RF (DME) blood pressure monitor Kit See Rx Instructions .Route Qty: 1 0RF Rx Instructions: As directed zolpidem [Ambien] 10 mg tablet 10 mg PO BEDTIME Discontinued ibuprofen 600 mg tablet 600 mg PO TID PRN (Reason: pain) 30 Days Qty: 90 0RF Rx Instructions: Take with food Discharge Orders: Discharge Order (Routine); Ordered 05/02/24 Ordered By: Forrest Faith Diet: Advance to usual diet Activity on Discharge: Use cane or walker Stand Alone Forms: Patient Portal Discharge page Print Language: New Zealander Care Plan Goals: Restore normal function of R leg Health Concerns: R distal femur fracture status post R retrograde IMN Plan of Treatment: Physical Therapy for Retrograde IMN : WBAT, gait training ? Limit stair climbing ? No showering, no tub bath-keep dressing clean, dry and intact ? No driving x6 weeks ? Continue Lovenox injections once a day x 6 weeks, starting tomorrow, 05/03/23 at 12 noon ? Follow up with [facility] [place] [facility] [place]: Assessment: Stable for discharge
--- NOTE | 2024-05-04 10:04 | HO.POSTANES ---
Post Anesthesia Evaluation Post Anesthesia Evaluation Date of Service: 05/04/24 Anesthesia: General Mental Status: Awake Pain Control: Satisfactory Hydration: Adequate Anesthesia-Related Issues: No Anes. Related Issues (pt discharged, info from nursing)
--- NOTE | 2024-05-08 15:23 | W.PM.OPN ---
Operative Note Operative Note Date of Service: 05/02/24 Narrative: Date of Service: 05/02/24 Pre-op diagnosis: Right distal femur periprosthetic fracture Post-op diagnosis: same Procedure: ORIF right distal femur Implants: Neymar [id number] retrograde IMN with 4 distal and 2 proximal interlocking screws Surgeon: Chriss Buck MD Anesthesia: GETA Was an Threader Operator used for this Procedure?: Yes Threader Operator: Forrest Faith Estimated blood loss (mL): 200 IV fluids (mL): 1,000 Pathology: none sent Condition: stable Disposition: PACU Patient was brought to the operating room and placed supine on the fracture table. She was prepped and draped in standard sterile fashion and a time out was called to identify proper site, proper procedure and IV antibiotics per weight were administered. I began by flexing the knee up and making a small 2 cm incision between the distal pole of the patella and the tibial tubercle directly midline. The patellar tendon was split midline. Using lateral and AP fluoro I placed the guidewire into the femur through the open box of the femoral prosthesis. A tissue retractor was placed and I over-reamed with a 12.5 opening reamer. A ball tipped guidewire was ten placed across the fracture. This was a distal fracture and the bone quality was fair. With the fracture in a reduced position, I was able to pass a 15 reamer up the femoral canal to the level of the lesser without resistance. I then measured and placed a 300x13 mm nail. Using the targeting guide 4 distal screws were placed through the nail. Using perfect [place] technique 2 proximal interlocking screws were placed. Final radiographs showed excellent positioning of the hardware and fracture alignment. I irrigated copiously and then closed with absorbable sutures and skin broderick. Patient was then placed in sterile dressing and extubated. He was brought to the recovery room in stable condition. There were no known complications.
== END 2024-05-02 16:46 | disposition home health service (06) | DRG 481 ==
LOC: HO.ED 14:09 → HO.EDOVER 14:13 → HO.S3 20:07
PROVIDERS: Orthopaedic Surgery; Emergency Provider Emergency Medicine; PCP Internal Medicine
PROC: 0QSB06Z Reposition Right Lower Femur with Intramedullary Internal Fixation Device, Open Approach (ICD-10-PCS; principal; 2024-05-02 09:00)
DX: S72.451A Displaced supracondylar fracture without intracondylar extension of lower end of right femur, initial encounter for closed fracture (principal); M97.11XA Periprosthetic fracture around internal prosthetic right knee joint, initial encounter; W10.9XXA Fall (on) (from) unspecified stairs and steps, initial encounter; F90.9 Attention-deficit hyperactivity disorder, unspecified type; I10 Essential (primary) hypertension; J44.9 Chronic obstructive pulmonary disease, unspecified; Z87.891 Personal history of nicotine dependence; Z79.899 Other long term (current) drug therapy
CPT/HCPCS: 36415; 71045; 72192; 73502; 73560; 80048; 80076; 83735; 85025; 85610; 86850; 86900; 86901; 93005; 97161; 99285; C1713; J0131; J0690; J1100; J1171; J2003; J2250; J2270; J2405; J2704; J2795; J3010; J7120

== ENCOUNTER → 2024-05-01 10:55 | Outpatient (BNV) | payer MEDICARE, MEDICAID, SELFPAY | PROVIDERS: Emergency Provider Emergency Medicine; PCP Internal Medicine | DX: S72.401A Unspecified fracture of lower end of right femur, initial encounter for closed fracture (principal); M97.11XA Periprosthetic fracture around internal prosthetic right knee joint, initial encounter | CPT/HCPCS: 27506; 99024; 99223; G0180 ==

== ENCOUNTER → 2024-05-01 11:34 | Outpatient (BNV) | payer MEDICARE, MEDICAID, SELFPAY | PROVIDERS: Emergency Provider Emergency Medicine; PCP Internal Medicine; Visit Provider Internal Medicine Cardiovascular Disease | DX: I45.10 Unspecified right bundle-branch block (principal) | CPT/HCPCS: 93010 ==

== ENCOUNTER → 2024-05-01 12:23 | Outpatient (BNV) | payer MEDICARE, MEDICAID, SELFPAY | PROVIDERS: Emergency Provider Emergency Medicine; PCP Internal Medicine; Visit Provider Radiology Diagnostic Radiology | DX: R10.2 Pelvic and perineal pain (principal); S72.451A Displaced supracondylar fracture without intracondylar extension of lower end of right femur, initial encounter for closed fracture; Z03.89 Encounter for observation for other suspected diseases and conditions ruled out | CPT/HCPCS: 71045; 73502; 73560 ==

== ENCOUNTER → 2024-05-01 14:12 | Outpatient (BNV) | payer MEDICARE, MEDICAID, SELFPAY | PROVIDERS: Emergency Provider Emergency Medicine; PCP Internal Medicine; Visit Provider Internal Medicine | DX: J44.9 Chronic obstructive pulmonary disease, unspecified (principal); I10 Essential (primary) hypertension; F90.9 Attention-deficit hyperactivity disorder, unspecified type | CPT/HCPCS: 99222 ==

== ENCOUNTER 2024-05-15 08:26 | Outpatient (REF) | payer MEDICARE, MEDICAID, SELFPAY ==
--- NOTE | ~2024-05-15 | XR_ITS ---
EXAMINATION: XR FEMUR, RIGHT CLINICAL INFORMATION: S72.142A - Displaced intertrochanteric fracture of left femur, initial e... COMPARISON: None available. TECHNIQUE: AP and lateral views of the right femur were obtained. FINDINGS: Intramedullary. Femoral josephine with proximal and distal screws stabilizing distal femoral comminuted fracture in alignment . No additional bony abnormality seen. There is a right knee prosthesis partially visualized . Surgical broderick are seen in the upper and lower leg from immediate postoperative changes. XR/XR femur RT 2V IMPRESSION: Intramedullary femoral josephine and proximal and distal screws stabilizing distal femoral comminuted fracture in alignment. There are surgical broderick from immediate postoperative changes. Electronically signed by: Ron Dickerson MD 05/19/2024 08:39 AM [facility]
--- NOTE | ~2024-05-15 | XR_ITS ---
EXAMINATION: XR KNEE, RIGHT CLINICAL INFORMATION: M25.569 - Pain in unspecified knee COMPARISON: Right knee 10/19/2017. TECHNIQUE: 2 views of the right knee. FINDINGS: There is a total knee prosthesis with the prosthetic components in satisfactory alignment. No visible acute fracture, dislocation or subluxation seen. And screws There is a intramedullary femoral josephine stabilizing a comminuted distal femoral fracture in satisfactory alignment. Immediate postsurgical changes are visualized along the soft tissues. No change along the proximal tibial bone infarct findings. XR/XR knee RT 2V IMPRESSION: Stabilized distal femoral fracture with intramedullary femoral josephine and several screws. Right knee prosthesis is stable and unchanged to 05/01/2024. Electronically signed by: Ron Dickerson MD 05/19/2024 08:29 AM [facility]
== END 2024-05-15 08:27 | disposition home or self-care (01) ==
LOC: HO.HOSX 08:26
DX: S72.401D Unspecified fracture of lower end of right femur, subsequent encounter for closed fracture with routine healing (principal); I10 Essential (primary) hypertension; J44.9 Chronic obstructive pulmonary disease, unspecified; Z79.899 Other long term (current) drug therapy
CPT/HCPCS: 73552; 73560; 96127; 99212; 99495

== ENCOUNTER 2024-05-15 09:41 | Outpatient (AMB) | payer MEDICARE, MEDICAID, SELFPAY ==
--- NOTE | 2024-05-15 08:21 | MHC.PC.OV ---
Vital Signs 05/15/24 09:45 Height 5 ft 7 in BMI Reason not done Patient refused/unable BP 146/72 H Blood Pressure Location Lt brachial Position Sitting Respiration 18 Pulse 74 Pulse Source Pulse Oximeter Temp 97.5 F Temp Source Oral Pulse Oximetry (%) 91 L Oxygen Delivery Method Room Air Intake Visit Reasons: TCM [facility] [place] femur fracture 05/02 Allergies haloperidol [From HALDOL] Adverse Reaction (Severe, Verified 05/15/24 15:27) SEIZURES oxycodone Adverse Reaction (Verified 05/15/24 11:43) Rash lisinopril Adverse Reaction (Uncoded 05/15/24 11:43) Cough Medication List - Last Reconciled 05/15/24 by THOMAS Morales acetaminophen 650 mg (2 x 325 mg) PO Q6H PRN 30 days albuterol sulfate 2.5 mg (3 mL) inhalation QID PRN 30 days albuterol sulfate 90 mcg/actuation 2 puffs PO QID PRN ascorbic acid (vitamin C) 500 mg PO DAILY 90 days atorvastatin 10 mg PO DAILY 90 days blood pressure monitor As directed calcium carbonate (Oyster Shell Calcium) 500 mg PO DAILY 90 days celecoxib 200 mg PO BID 30 days cholecalciferol (vitamin D3) 125 mcg PO DAILY 90 days dextroamphetamine-amphetamine 10 mg 20 mg PO DAILY@1200 dextroamphetamine-amphetamine 20 mg 40 mg PO DAILY diltiazem HCl ER 240 mg PO DAILY docusate sodium 100 mg PO BID 30 days enoxaparin 40 mg (0.4 mL) subcut Q24H 42 days epinephrine (EpiPen 2-Nico) 0.3 mg (0.3 mL) IM Q30M PRN escitalopram oxalate 20 mg PO DAILY fluticasone propionate 110 mcg/actuation 1 puff PO BID PRN hydrochlorothiazide 12.5 mg PO DAILY 30 days ipratropium-albuterol 0.5 mg-3 mg(2.5 mg base)/3 mL 3 mL inhalation Q6-8H PRN 30 days loratadine 10 mg PO DAILY PRN 90 days nebulizers As directed omeprazole 20 mg PO DAILY@0630 oxycodone 5 mg PO Q6H PRN 7 days quetiapine 400 mg PO BEDTIME walker As directed zolpidem (Ambien) 10 mg PO BEDTIME Tobacco use date assessed: 05/15/24 Fall risk assessment: 1 Fall in past year Last assessed Fall Risk: 05/15/24 Dental Screening Dental Screen Date: 05/15/24 Did you have a dental visit in the last 12 months?: Yes Did you have a dental problem in the last 6 months where you did not have access to dental care?: No Was dental information given to patient?: Patient has dentist HPI [facility] R femur fracture 05/02 HPI Details Patient is a 63-year-old female with past medical history of asthma, hypertension, PAC, SVT, ADHD, GERD, COPD, not on blood thinners, history of right total knee replacement He is a patient of Dr. Pierce last seen in office on 12/04/2023 The patient is presenting today for post hospital follow-up: The patient went to the ED on 05/01/2024 after tripping and falling down for stairs with her right knee when under and she was having pain in the distal thigh and was unable to walk. Right knee X-ray and morphine IV ordered in the ED, and orthopedic consultation XRAY taken in the ED reveal periprosthetic distal femure fracture of the right leg. Orthopedic: The patient was evaluated and the decision was made to perform a right femur retrograde intramedullary nail placement. For which the patient underwent successfully. Patient was transferred to the PACU and then the floor to recover. During the stay, the patient's vitals were stable labs were unremarkable and POD 1 the patient was started on Lovenox 40 mg for DVT prophylaxis. She also received physical therapy services twice a day with weight-bearing as tolerated. The patient was discharged on 05/02/2024. Prior to discharge, interested in was changed, per note her incision was clean dry and intact and the patient was educated to keep the dressing dry at all times. denies smoking, no alcohol use, oxygen saturation 91% denies sob. The has artificial nails on, difficult to obtain saturations. [facility] Medical History Essential hypertension Asthma Chest pain SVT (supraventricular tachycardia) Elevated blood pressure reading Impacted cerumen of both ears Cervical cancer screening Overweight (BMI 25.0-29.9) Depression Attention deficit hyperactivity disorder (ADHD) Insomnia Hirsutism Primary osteoarthritis of right knee Allergic rhinitis GERD without esophagitis Vitamin D deficiency Neuropathy Chronic obstructive pulmonary disease Mixed hyperlipidemia Surgical History S/P catheter ablation of slow pathway History of colonoscopy H/O rotator cuff surgery Total knee replacement status History of hand surgery H/O right knee surgery Family History Father Medical history unknown Mother Medical history unknown Social History Household Members: Spouse Housing: House Do you presently have visiting nurse or other home services: No Alcohol intake: former Patient Tobacco Use Status: Former Tobacco user Tobacco use type: Cigarette e-Cigarette/Vaping Use: Currently Using Second Hand Smoke Exposure: No Advance Directives Date on File: 05/01/24 service: No Current occupational status: disabled Gender identity: Female Cognitive needs: Yes Hearing needs: No Vision needs: No Female Reproductive History Menstrual Age of Menarche: 13 Questionnaire PHQ-9 Over the last 2 weeks, how often have you been bothered by any of the following problems? 1. Little interest or pleasure in doing things: not at all 2. Feeling down, depressed, or hopeless: not at all 3. Trouble falling or staying asleep, or sleeping too much: nearly every day 4. Feeling tired or having little energy: nearly every day 5. Poor appetite or overeating: more than half the days 6. Feeling bad about yourself - or that you are a failure or have let yourself or your family down: more than half the days 7. Trouble concentrating on things, such as reading the newspaper or watching television: nearly every day 8. Moving or speaking so slowly that other people could have noticed. Or the opposite - being so fidgety or restless that you have been moving around a lot more than usual: nearly every day 9. Thoughts that you would be better off or of hurting yourself in some way: not at all Total score: 16 Depression Screening Interpretation: Positive Depression Screening Follow-up: Existing condition and In treatment Depression Screening Done: Yes 85066 - PHQ-9 Billing: Yes Source: Developed by Drs. Eliecer Lake, Josie Mayberry, Shawn Pearson and colleagues, with an educational kamilla from [employer]. Thrive Questionnaire Date Thrive assessed: 05/15/24 I am a: Patient What is your living situation today?: I have a steady place to live Within the past 12 months, did the food you bought not last and you didn't have the money to get more?: Never true Within the past 12 months, did you worry whether your food would run out before you got money to buy more?: Never true Do you have trouble paying for medicines?: No Do you have trouble getting transportation to medical appointments?: No Do you have trouble paying your heating and electricity bill?: No Do you have trouble taking care of your child, family member or friend?: No Do you have trouble with day-to-day activities such as bathing, preparing meals, shopping, managing finances, etc.?: No Are you currently unemployed and looking for a job?: No Are you interested in more education?: No Currently or been in a relationship where the following occur: No concerns reported THRIVE Score: 0 AUDIT C Alcohol Use Questionnaire (AUDIT-C) 1. How often do you have a drink containing alcohol?: Never 3. How often do you have six or more drinks on one occasion?: Never Total Score: 0 Score Reviewed/Action Taken: Yes CHANG-7 AMB Questionnaire CHANG-7 Date CHANG - 7 assessed: 05/15/24 Feeling nervous, anxious, or on edge: 0 = Not at all Not being able to stop or control worryin = Not at all Worrying too much about different things: 0 = Not at all Trouble relaxin = Not at all Being so restless that it is hard to sit still: 0 = Not at all Becoming easily annoyed or irritable: 0 = Not at all Feeling afraid as if something awful might happen: 0 = Not at all Total CHANG-7 score (0-4 normal; 5-9 mild; 10-14 moderate; 15-21 severe): 0 Source: Developed by Drs. Eliecer Lake, Josie Mayberry, Shawn Pearson and colleagues, with an educational kamilla from [employer]. Review of Systems Const Details: Denies chills, Denies fatigue, Denies fever(s), Denies headache(s) and Denies weakness HEENT Denies change in vision, Denies dizziness, Denies headache(s), Denies hearing loss, Denies nasal congestion, Denies sinus pain, Denies sinus pressure and Denies sore throat Card Denies chest pain, Denies lightheadedness, Denies dyspnea and Denies other (palpitations) Resp Denies cough, Denies dyspnea and Denies wheezing GI Denies abdominal pain, Denies melena, Denies hematochezia, Denies change in bowel habits, Denies dyspepsia and Denies nausea Denies hematuria and Denies dysuria Musc right knee pain s/p right femur retrograde intramedullary nail replacement Skin/Breast Denies rash, Denies unusual bruising and Denies wounds Neuro Denies abnormal gait, Denies dizziness, Denies headache(s), Denies memory loss, Denies numbness, Denies Sensory deficit Psych Denies anxiety, Denies depression and Denies memory loss Endo Denies cold intolerance, Denies fatigue, Denies heat intolerance, Denies polydipsia and Denies polyuria Julio/Lymph Denies easy bleeding and Denies easy bruising Aller/Immun Denies wheezing Physical exam (Primary Care) Vital Signs: Last Vital Signs Temp 97.5 F 05/15/24 09:45 Pulse 74 05/15/24 09:45 Resp 18 05/15/24 09:45 BP 146/72 H 05/15/24 09:45 Pulse Ox 91 L 05/15/24 09:45 Oxygen Delivery Method Room Air 05/15/24 09:45 Tobacco/Smoking Status: Tobacco use Status Tobacco use date assessed 05/15/24 05/15/24 09:46 Patient Tobacco Use Status Former Tobacco user 05/15/24 08:22 Tobacco use type Cigarette 05/15/24 09:46 e-Cigarette/Vaping Use Currently Using 05/15/24 09:52 PHQ-9: PHQ-9 Score PHQ-9: Total score 16 05/15/24 09:52 Depression Screening Interpretation: Positive Depression Screening Follow-up: Existing condition and In treatment Thrive Assessment: Date of Thrive Assessment Date Thrive assessed 05/15/24 05/15/24 09:52 Currently or been in a relationship where the following occur: No concerns reported Const Other: General: no acute distress, well developed, alert and awake Nutritional Appearance: well nourished Orientation/consciousness: patient oriented x3 HENMT Head: Yes normocephalic and Yes atraumatic Ears: hearing grossly normal bilaterally and TM's normal bilaterally General nose exam: Normal external nose present and Normal nares present Eyes Pupils: Equal, round and reactive pupils present and Pupil accommodation reflex normal EOM: EOMs intact bilaterally Neck Neck: Yes normal visual inspection, Yes no lymphadenopathy Thyroid: Thyroid normal Lymphatic: no lymphadenopathy noted Chest Chest palpation & inspection: normal inspection of the chest Resp Effort & Inspection: normal respiratory effort Auscultation: clear to auscultation bilaterally Cardio Rate: regular rate Rhythm: regular rhythm Heart sounds: S1 normal heart sound present, S2 normal heart sound present, no gallops, no murmurs and no rubs GI Palpation (GI): No Abdominal aortic bruit present, abdomen is soft and nontender to palpation Auscultation: normal bowel sounds General: Yes no CVA tenderness Back/Spine/Pelvis Back: no CVA tenderness Skin General: warm and dry. Normal skin color. Normal skin turgor Other: Right knee-broderick intact with no signs of infection, positive range of motion Neuro General: patient oriented x3 Cranial nerves: Yes Equal, round and reactive pupils present Cognition (Neuro): normal cognition Gait exam (Neuro): Ambulating with a walker Extrem General: Yes normal to inspection, No edema and No calf tenderness Psych Appearance: grossly normal Affect: normal affect Attitude: cooperative Thought process: Normal thought process present Coding Level of Care Code TCM Mod MDM <= 14 Days Diagnoses Closed fracture of distal end of right femur with routine healing, unspecified fracture morphology, subsequent encounter S72.401D Encounter type: subsequent encounter Fracture morphology: unspecified fracture morphology Fracture healing: with routine healing Essential hypertension I10 Asthma, unspecified asthma severity, unspecified whether complicated, unspecified whether persistent J45.909 Asthma severity: unspecified severity Asthma persistence: unspecified Asthma complication type: unspecified Chronic obstructive pulmonary disease, unspecified COPD type J44.9 COPD type: unspecified COPD Additional Codes PHQ-9 - 05537 - PHQ-9 Billing: Yes ([id number]) Time Spent (min) 41 Assessment & Plan Assessment & Plan (1) Closed fracture of right distal femur: Code(s): S72.401A - Unspecified fracture of lower end of right femur, initial encounter for closed fracture Category: Medical Qualifiers: Encounter type: subsequent encounter Fracture morphology: unspecified fracture morphology Fracture healing: with routine healing Qualified Code(s): S72.401D - Unspecified fracture of lower end of right femur, subsequent encounter for closed fracture with routine healing Plan: s/p fall re-injuring her right knee that went under TKR in the past. The patient underwent a right femur retrograde intramedullary nail. Patient was transitioned out of the hospital with the help of PT services, weight-bearing as tolerated. Started on enoxaparin subQ prophylactically Patient is in office today, right knee with small Band-Aid present, broderick are intact no signs of infection noted Per patient she is following up with Orthopedics today after this appointment. Reports that her pain has been controlled on oxycodone mg q.6 as needed Follow up with Orthopedics as scheduled (2) Essential hypertension: Code(s): I10 - Essential (primary) hypertension Category: Medical Plan: Blood pressure was 146/72 in office: Slightly elevated from her normal, suspect that is due to pain from ambulating Reinforced low-sodium diet Continue on diltiazem 240 mg daily and hydrochlorothiazide 12.5 mg p.o. daily (3) Asthma: Comment: PER PULMONARY FUNCTION TEST, I THINK SHE HAS A MILD BRONCHIAL ASTHMA, AND DOES NOT FIT IN THE PICTURE OF COPD WHICH IMPROVES WITH BRONCHODILATOR THERAPY TX : PROAIR 2 PUFFS Q 6 HOURS ONLY NEEDED. SHE DOES NOT NEED TO USE INHALED STEROIDS OR ANY DUONEB UPDRAFTS SHE IS EDUCATED TO AVOID ANY TRIGGERS SUCH DUST FUMES SPRAYS ETC.. Code(s): J45.909 - Unspecified asthma, uncomplicated Category: Medical Qualifiers: Asthma severity: unspecified severity Asthma persistence: unspecified Asthma complication type: unspecified Qualified Code(s): J45.909 - Unspecified asthma, uncomplicated Plan: Patient reports mild shortness of breath with exertion-reports that this is similar to her baseline Continue albuterol sulfate 2.5 mg q.i.d. p.r.n., and fluticasone propionate 110 mcg/actuation 1 puff b.i.d. p.r.n., ipratropium-albuterol 0.5 mg-3mg(2.5 mg base)/3ml Q6-8H PRN Patient was last seen by pulmonology in 2022. Reported patient does not need to use inhaled steroids or DuoNebs updraft Encourage patient to take rest periods and avoid triggers (4) Chronic obstructive pulmonary disease: Comment: PATIENT HAS HAD HISTORY OF MILD OBSTRUCTIVE AIRWAY DISORDER BACK IN 2012. PFT, TO EVALUATE THE CURRENT STATUS OF HER LUNG FUNCTION, IS BEING SCHEDULED. TX USE PROAIR 2 PUFFS Q 4-6 HOURS ONLY P.R.N. Code(s): J44.9 - Chronic obstructive pulmonary disease, unspecified Category: Medical Qualifiers: COPD type: unspecified COPD Qualified Code(s): J44.9 - Chronic obstructive pulmonary disease, unspecified Plan: Same as above Plan The patient has a follow up appointment on 07/24/2024 for a chronic conditions. The patient to keep that appointment or contact office with any concerns or needs to be seen sooner
[2024-05-15 09:45] VITALS: BP 146/72; PULSE 74; RESP 18; TEMP 36.4; O2SAT 91
== END 2024-05-15 10:12 | disposition home or self-care (01) ==
PROVIDERS: PCP Internal Medicine
DX: I10 Essential (primary) hypertension (principal); J45.909 Unspecified asthma, uncomplicated; J44.9 Chronic obstructive pulmonary disease, unspecified; S72.401A Unspecified fracture of lower end of right femur, initial encounter for closed fracture

== ENCOUNTER 2024-05-15 11:26 | Outpatient (AMB) | payer MEDICARE, MEDICAID, SELFPAY ==
--- NOTE | 2024-05-15 11:42 | A.OFFVIS_ITS ---
Vital Signs 05/15/24 11:42 Height 5 ft 7 in Intake Visit Reasons: PO - ORIF RT distal femur 05/02/24 NE Intake Note: Jonathan is a 63 year old female who presents today post-operatively after undergoing a right distal femur ORIF on 05/02/[address] Buck. States today she attended 2 appt and is having a little pain however states she manages her pain good with medication. Allergies haloperidol [From HALDOL] Adverse Reaction (Severe, Verified 05/15/24 15:27) SEIZURES oxycodone Adverse Reaction (Verified 05/15/24 11:43) Rash lisinopril Adverse Reaction (Uncoded 05/15/24 11:43) Cough HPI HPI PO - ORIF RT distal femur 05/02/24 NE: Details: Patient is a 63-year-old female who presents for postoperative evaluation status post retrograde IM nail of the right distal femur, date of surgery 05/02/2024. Today, the patient reports that her pain is well managed, and she feels she is doing very well with physical therapy. [facility] Medical History Essential hypertension Asthma Chest pain SVT (supraventricular tachycardia) Elevated blood pressure reading Impacted cerumen of both ears Cervical cancer screening Overweight (BMI 25.0-29.9) Depression Attention deficit hyperactivity disorder (ADHD) Insomnia Hirsutism Primary osteoarthritis of right knee Allergic rhinitis GERD without esophagitis Vitamin D deficiency Neuropathy Chronic obstructive pulmonary disease Mixed hyperlipidemia Surgical History S/P catheter ablation of slow pathway History of colonoscopy H/O rotator cuff surgery Total knee replacement status History of hand surgery H/O right knee surgery Family History Father Medical history unknown Mother Medical history unknown Social History Household Members: Spouse Housing: House Do you presently have visiting nurse or other home services: No Alcohol intake: former Patient Tobacco Use Status: Former Tobacco user Tobacco use type: Cigarette e-Cigarette/Vaping Use: Currently Using Second Hand Smoke Exposure: No Advance Directives Date on File: 05/01/24 service: No Current occupational status: disabled Gender identity: Female Cognitive needs: Yes Hearing needs: No Vision needs: No Female Reproductive History Menstrual Age of Menarche: 13 Review of Systems Const All systems reviewed & are unremarkable except as noted in HPI and below Physical Exam Vital Signs: Last Vital Signs Temp 97.0 F 05/02/24 12:22 Pulse 71 05/02/24 12:22 Resp 16 05/02/24 12:22 BP 118/76 05/02/24 12:22 Pulse Ox 97 05/02/24 12:22 O2 Del Method Nasal Cannula 05/02/24 12:22 O2 Flow Rate 3 05/02/24 12:09 BMI result Body Mass Index 25.1 Extrem Other: Dressings on right knee and leg clean, dry, intact No evidence of surrounding erythema, ecchymosis No evidence of infection Patient is able to flex and extend the digits of the left foot without difficulty Compartments soft, nontender Distal sensation intact Capillary refill brisk Results Reviewed Results Reviewed: X-rays obtained in the office today and independently reviewed by me, Forrest Faith PA-C, demonstrate surgically repaired fracture of right distal femur with all orthopedic hardware in place and in satisfactory clinical alignment Assessment & Plan Assessment & Plan (1) Closed fracture of right distal femur: Code(s): S72.401A - Unspecified fracture of lower end of right femur, initial encounter for closed fracture Category: Medical Qualifiers: Encounter type: subsequent encounter Fracture morphology: unspecified fracture morphology Fracture healing: with routine healing Qualified Code(s): S72.401D - Unspecified fracture of lower end of right femur, subsequent encounter for closed fracture with routine healing Plan 1. Status post retrograde IM nail of right femur DOS 05/02/2024 Patient appears to be recovering well postoperatively Patient is educated about the typical recovery course Osman removed office today Patient Is cleared to shower Patient was informed that she should continue working with physical therapy on range of motion, strengthening, gait training of the right leg Patient was amenable to this plan Patient will follow-up in 4 weeks with repeat x-rays for reassessment, sooner with any concerns Orders: Orders XR knee RT 2V Today M25.569 - Pain in unspecified knee XR femur RT 2V Today S72.142A - Displaced intertrochanteric fracture of left femur, initial encounter for closed fracture Coding Level of Care Code Global (33135) Diagnoses Closed fracture of distal end of right femur with routine healing, unspecified fracture morphology, subsequent encounter S72.401D Encounter type: subsequent encounter Fracture morphology: unspecified fracture morphology Fracture healing: with routine healing
== END 2024-05-15 11:58 | disposition home or self-care (01) ==
PROVIDERS: PCP Internal Medicine
DX: S72.401D Unspecified fracture of lower end of right femur, subsequent encounter for closed fracture with routine healing (principal)
CPT/HCPCS: 99024

== ENCOUNTER 2024-06-12 08:21 | Outpatient (REF) | payer MEDICARE, MEDICAID, SELFPAY ==
--- NOTE | ~2024-06-12 | XR_ITS ---
CLINICAL HISTORY: S72.142A - Displaced intertrochanteric fracture of left femur, initial e... 2 view right femur Comparison: 05/15/2024 Findings: There is minimal healing of the comminuted distal femur fracture with surgical hardware in position. The exam is otherwise unchanged IMPRESSION: 1. Minimal healing of distal femoral fracture This document has been electronically signed by: Umang Sosa MD on 06/13/2024 05:56:28
== END 2024-06-12 08:22 | disposition home or self-care (01) ==
LOC: HO.HOSX 08:21
DX: S72.142A Displaced intertrochanteric fracture of left femur, initial encounter for closed fracture (principal)
CPT/HCPCS: 73552

== ENCOUNTER 2024-06-12 11:23 | Outpatient (AMB) | payer MEDICARE, MEDICAID, SELFPAY ==
--- NOTE | 2024-06-12 11:25 | MHC.OFFVIS ---
Intake Visit Reasons: PO- RT retrograde IMN DOS 05/02/24. Intake Note: Jonathan is a 63 year old female who presents today post-operatively after undergoing a right distal femur ORIF on 05/02/[address] Buck. Allergies haloperidol [From HALDOL] Adverse Reaction (Severe, Verified 06/12/24 11:25) SEIZURES oxycodone Adverse Reaction (Verified 06/12/24 11:25) Rash lisinopril Adverse Reaction (Uncoded 06/12/24 11:25) Cough HPI HPI PO- RT retrograde IMN DOS 05/02/24.: Details: Jonathan is a 63 year old female who presents today post-operatively after undergoing a right distal femur ORIF on 05/02/[address] Buck. Patient reports that she is feeling very well, and then she is working very diligently with physical therapy. The patient states that she is extremely thankful for her surgery and for her postoperative care, as she feels that this has contributed significantly to her very good recovery. Patient reports no other acute complaints or concerns at this time. [facility] Medical History Essential hypertension Asthma Chest pain SVT (supraventricular tachycardia) Elevated blood pressure reading Impacted cerumen of both ears Cervical cancer screening Overweight (BMI 25.0-29.9) Depression Attention deficit hyperactivity disorder (ADHD) Insomnia Hirsutism Primary osteoarthritis of right knee Allergic rhinitis GERD without esophagitis Vitamin D deficiency Neuropathy Chronic obstructive pulmonary disease Mixed hyperlipidemia Surgical History S/P catheter ablation of slow pathway History of colonoscopy H/O rotator cuff surgery Total knee replacement status History of hand surgery H/O right knee surgery Family History Father Medical history unknown Mother Medical history unknown Social History Household Members: Spouse Housing: House Do you presently have visiting nurse or other home services: No Alcohol intake: former Patient Tobacco Use Status: Former Tobacco user Tobacco use type: Cigarette e-Cigarette/Vaping Use: Currently Using Second Hand Smoke Exposure: No Advance Directives Date on File: 05/01/24 service: No Current occupational status: disabled Gender identity: Female Cognitive needs: Yes Hearing needs: No Vision needs: No Female Reproductive History Menstrual Age of Menarche: 13 Review of Systems Const All systems reviewed & are unremarkable except as noted in HPI and below Physical Exam Vital Signs: Last Vital Signs Temp 97.0 F 05/02/24 12:22 Pulse 71 05/02/24 12:22 Resp 16 05/02/24 12:22 BP 118/76 05/02/24 12:22 Pulse Ox 97 05/02/24 12:22 O2 Del Method Nasal Cannula 05/02/24 12:22 O2 Flow Rate 3 05/02/24 12:09 BMI result Body Mass Index 25.1 Extrem Other: Incision site on left knee clean, dry, intact, well-healed No evidence of surrounding erythema, ecchymosis No evidence of infection Patient is able to flex and extend the digits of the left foot without difficulty Patient was able to flex the left knee to 90 degrees and extend fully without difficulty Compartments soft, nontender Distal sensation intact Capillary refill brisk Assessment & Plan Assessment & Plan (1) Closed fracture of right distal femur: Code(s): S72.401A - Unspecified fracture of lower end of right femur, initial encounter for closed fracture Category: Medical Qualifiers: Encounter type: subsequent encounter Fracture healing: with routine healing Fracture morphology: unspecified fracture morphology Qualified Code(s): S72.401D - Unspecified fracture of lower end of right femur, subsequent encounter for closed fracture with routine healing Plan 1. Status post retrograde IM nail of right femur DOS 05/02/2024 Patient appears to be recovering well postoperatively Patient is educated about the typical recovery course Patient was informed that she should continue working with physical therapy on range of motion, strengthening, gait training of the right leg Patient was amenable to this plan Patient will follow-up in 6 weeks with repeat x-rays for reassessment, sooner with any concerns Orders: Orders XR femur RT 2V 06/12/24 S72.142A - Displaced intertrochanteric fracture of left femur, initial encounter for closed fracture PT Evaluation and Treatment 06/12/24 S72.401D - Unspecified fracture of lower end of right femur, subsequent encounter for closed fracture with routine healing Coding Level of Care Code Global (73527) Diagnoses Closed fracture of distal end of right femur with routine healing, unspecified fracture morphology, subsequent encounter S72.401D Encounter type: subsequent encounter Fracture healing: with routine healing Fracture morphology: unspecified fracture morphology
== END 2024-06-12 11:47 | disposition home or self-care (01) ==
PROVIDERS: PCP Internal Medicine
DX: S72.401D Unspecified fracture of lower end of right femur, subsequent encounter for closed fracture with routine healing (principal)
CPT/HCPCS: 99024

== ENCOUNTER → 2024-06-12 11:25 | Outpatient (BNV) | payer MEDICARE, MEDICAID, SELFPAY | PROVIDERS: Visit Provider Specialist | DX: S72.142D Displaced intertrochanteric fracture of left femur, subsequent encounter for closed fracture with routine healing (principal) | CPT/HCPCS: 73552 ==

== ENCOUNTER 2024-07-03 12:23 | Outpatient (REF) | payer MEDICARE, MEDICAID, SELFPAY | END 2024-07-03 12:24 | disposition home or self-care (01) | LOC: HO.MAMMO 12:23 | PROVIDERS: PCP Internal Medicine; Visit Provider Internal Medicine | DX: Z12.31 Encounter for screening mammogram for malignant neoplasm of breast (principal) | CPT/HCPCS: 77063; 77067 ==

== ENCOUNTER → 2024-07-03 12:30 | Outpatient (BNV) | payer MEDICARE, MEDICAID, SELFPAY | PROVIDERS: PCP Internal Medicine; Visit Provider Internal Medicine | DX: Z12.31 Encounter for screening mammogram for malignant neoplasm of breast (principal) | CPT/HCPCS: 77063; 77067 ==

== ENCOUNTER 2024-07-23 08:20 | Outpatient (REF) | payer MEDICARE, MEDICAID, SELFPAY ==
--- NOTE | ~2024-07-23 | XR_ITS ---
EXAMINATION: XR HIP 2 OR MORE VIEWS RIGHT HISTORY: M25.551 - Pain in right hip COMPARISON: There are no prior studies for comparison. FINDINGS: A single AP view of the pelvis and two views of the right hip are submitted. Osseous mineralization is normal. There is no fracture or dislocation. A portion of an intramedullary josephine is seen in the femur. There is mild joint space narrowing. The soft tissues are unremarkable. XR/XR hip RT min 2V IMPRESSION: Mild joint space narrowing. Electronically signed by: Eliecer Kennedy MD 07/23/2024 09:24 AM EDT
--- NOTE | ~2024-07-23 | XR_ITS ---
EXAMINATION: XR KNEE 1-2 VIEWS RIGHT HISTORY: M25.569 - Pain in unspecified knee COMPARISON: Comparison is made with the prior examination dated 05/15/2024. FINDINGS: AP and lateral views of the right knee are submitted. Osseous mineralization is normal. The patient is again noted to be status post total knee arthroplasty. An intramedullary josephine is again noted at the site of the previously seen comminuted fracture of the distal femoral metaphysis. There is a moderate amount of new callus formation seen, consistent with healing. The fracture lines remain visible. Again seen is a flocculent calcification in the proximal tibial metaphysis consistent with an enchondroma or bone infarct. The soft tissues are unremarkable. XR/XR knee RT 2V IMPRESSION: Healing comminuted fracture of the distal right femoral metaphysis. Electronically signed by: Eliecer Kennedy MD 07/23/2024 09:29 AM EDT
== END 2024-07-23 08:21 | disposition home or self-care (01) ==
LOC: HO.HOSX 08:20
DX: M25.511 Pain in right shoulder (principal); M25.561 Pain in right knee; S72.401D Unspecified fracture of lower end of right femur, subsequent encounter for closed fracture with routine healing
CPT/HCPCS: 73502; 73560; 99212

== ENCOUNTER 2024-07-23 08:59 | Outpatient (AMB) | payer MEDICARE, MEDICAID, SELFPAY ==
--- NOTE | 2024-07-23 09:21 | MHC.OFFVIS ---
Intake Visit Reasons: PO- RT retrograde IMN DOS 05/02/24-w/xray Intake Note: Jonathan is a 63 year old female who presents today for a follow up of her right leg about 3 months s/p Right IMN 05/02/24. She reports she is doing well and ambulating on her own. She is even attending one dance class a week. [employer] Furn[employer] Required: No Allergies haloperidol [From HALDOL] Adverse Reaction (Severe, Verified 07/23/24 09:24) SEIZURES oxycodone Adverse Reaction (Verified 07/23/24 09:24) Rash lisinopril Adverse Reaction (Uncoded 07/23/24 09:24) Cough Medication List - Last Reconciled 07/23/24 by Hien Carter RN acetaminophen 650 mg (2 x 325 mg) PO Q6H PRN 30 days albuterol sulfate 2.5 mg (3 mL) inhalation QID PRN 30 days albuterol sulfate 90 mcg/actuation 2 puffs PO QID PRN ascorbic acid (vitamin C) 500 mg PO DAILY 90 days atorvastatin 10 mg PO DAILY 90 days blood pressure monitor As directed calcium carbonate (Oyster Shell Calcium) 500 mg PO DAILY 90 days celecoxib 200 mg PO BID cholecalciferol (vitamin D3) 125 mcg PO DAILY 90 days dextroamphetamine-amphetamine 10 mg 20 mg PO DAILY@1200 dextroamphetamine-amphetamine 20 mg 40 mg PO DAILY diltiazem HCl ER 240 mg PO DAILY docusate sodium 100 mg PO BID 30 days enoxaparin 40 mg (0.4 mL) subcut Q24H 42 days epinephrine (EpiPen 2-Nico) 0.3 mg (0.3 mL) IM Q30M PRN escitalopram oxalate 20 mg PO DAILY fluticasone propionate 110 mcg/actuation 1 puff PO BID PRN hydrochlorothiazide 12.5 mg PO DAILY 30 days ipratropium-albuterol 0.5 mg-3 mg(2.5 mg base)/3 mL 3 mL inhalation Q6-8H PRN 30 days loratadine 10 mg PO DAILY PRN 90 days nebulizers As directed omeprazole 20 mg PO DAILY@0630 oxycodone 5 mg PO Q6H PRN 7 days quetiapine 400 mg PO BEDTIME walker As directed zolpidem (Ambien) 10 mg PO BEDTIME HPI HPI PO- RT retrograde IMN DOS 05/02/24-w/xray: Details: Jonathan is a 63 year old female who presents today for a follow up of her right leg about 3 months s/p Right IMN 05/02/24. She reports she is doing well and ambulating on her own. She is even attending one dance class a week. Patient has no acute complaints or concerns, in his extremely thankful for all the surfaces she has received. [facility] Medical History Essential hypertension Asthma Chest pain SVT (supraventricular tachycardia) Elevated blood pressure reading Impacted cerumen of both ears Cervical cancer screening Overweight (BMI 25.0-29.9) Depression Attention deficit hyperactivity disorder (ADHD) Insomnia Hirsutism Primary osteoarthritis of right knee Allergic rhinitis GERD without esophagitis Vitamin D deficiency Neuropathy Chronic obstructive pulmonary disease Mixed hyperlipidemia Surgical History S/P catheter ablation of slow pathway History of colonoscopy H/O rotator cuff surgery Total knee replacement status History of hand surgery H/O right knee surgery Family History Father Medical history unknown Mother Medical history unknown Social History Household Members: Spouse Housing: House Do you presently have visiting nurse or other home services: No Alcohol intake: former Patient Tobacco Use Status: Former Tobacco user Tobacco use type: Cigarette e-Cigarette/Vaping Use: Currently Using Second Hand Smoke Exposure: No Advance Directives Date on File: 05/01/24 service: No Current occupational status: disabled Gender identity: Female Cognitive needs: Yes Hearing needs: No Vision needs: No Female Reproductive History Menstrual Age of Menarche: 13 Review of Systems Const All systems reviewed & are unremarkable except as noted in HPI and below Physical Exam Vital Signs: Last Vital Signs Temp 97.0 F 05/02/24 12:22 Pulse 71 05/02/24 12:22 Resp 16 05/02/24 12:22 BP 118/76 05/02/24 12:22 Pulse Ox 97 05/02/24 12:22 O2 Del Method Nasal Cannula 05/02/24 12:22 O2 Flow Rate 3 05/02/24 12:09 BMI result Body Mass Index 25.1 Extrem Other: Incision site on left knee clean, dry, intact, well-healed No evidence of surrounding erythema, ecchymosis No evidence of infection Patient is able to flex and extend the digits of the left foot without difficulty Patient was able to flex the left knee to 110-120 degrees and extend fully without difficulty Compartments soft, nontender Distal sensation intact Capillary refill brisk Results Reviewed Results Reviewed: X-rays obtained in the office today and independently reviewed by me, Forrest Faith PA-C, demonstrate surgically repaired fracture of right distal femur with all orthopedic hardware in place and in satisfactory clinical alignment with evidence of good interval bony healing Assessment & Plan Assessment & Plan (1) Closed fracture of right distal femur: Code(s): S72.401A - Unspecified fracture of lower end of right femur, initial encounter for closed fracture Category: Medical Qualifiers: Encounter type: subsequent encounter Fracture morphology: unspecified fracture morphology Fracture healing: with routine healing Qualified Code(s): S72.401D - Unspecified fracture of lower end of right femur, subsequent encounter for closed fracture with routine healing Plan 1. Status post retrograde IM nail of right femur DOS 05/02/2024 Patient appears to be recovering well postoperatively Patient is educated about the typical recovery course Patient was informed that she should continue working with physical therapy on range of motion, strengthening, gait training of the right leg Patient was amenable to this plan Patient will follow-up in 3 months with repeat x-rays for reassessment, sooner with any concerns Orders: Orders XR knee RT 2V Today M25.569 - Pain in unspecified knee XR hip RT min 2V Today M25.551 - Pain in right hip Coding Level of Care Code Global (90840) Diagnoses Closed fracture of distal end of right femur with routine healing, unspecified fracture morphology, subsequent encounter S72.401D Encounter type: subsequent encounter Fracture morphology: unspecified fracture morphology Fracture healing: with routine healing
== END 2024-07-23 09:29 | disposition home or self-care (01) ==
LOC: HO.HOS 09:00
PROVIDERS: PCP Internal Medicine
DX: S72.401D Unspecified fracture of lower end of right femur, subsequent encounter for closed fracture with routine healing (principal)
CPT/HCPCS: 99024

== ENCOUNTER → 2024-07-23 09:07 | Outpatient (BNV) | payer MEDICARE, MEDICAID, SELFPAY | PROVIDERS: Visit Provider Radiology Diagnostic Radiology | DX: M25.551 Pain in right hip (principal); S72.451D Displaced supracondylar fracture without intracondylar extension of lower end of right femur, subsequent encounter for closed fracture with routine healing | CPT/HCPCS: 73502; 73560 ==

== ENCOUNTER 2024-09-02 08:11 | Outpatient (RCR) | payer MEDICARE, MEDICAID, SELFPAY | END 2024-11-05 12:38 | disposition home or self-care (01) | LOC: HO.PT 08:11 | PROVIDERS: PCP Internal Medicine | DX: S72.401D Unspecified fracture of lower end of right femur, subsequent encounter for closed fracture with routine healing (principal) | CPT/HCPCS: 97110; 97161; 97530 ==

== ENCOUNTER 2024-10-21 07:57 | Outpatient (REF) | payer MEDICARE, MEDICAID, SELFPAY | END 2024-10-21 07:58 | disposition home or self-care (01) | LOC: HO.HOSX 07:57 | DX: Z13.89 Encounter for screening for other disorder (principal) ==